=== PATIENT | female | born 1960 | race Caucasian/White ===

== ENCOUNTER 2020-05-24 08:52 | Inpatient (IN) | payer MEDICAID, SELFPAY ==
[~2020-05-24] VITALS: Ht 162.6 cm; Wt 61.2 kg
[2020-05-24 08:55] VITALS: BP 122/62
--- NOTE | 2020-05-24 09:15 | NUR ---
BIBA from home with c/o headache, abdominal pain N&V x 3 days. Denies fever, cough. States headache is 10/10 pain. NKDA, PMH DM2 A, A, O x4, cooperative, moving all exts w/o difficulty HOB elevated, connected to health promoter, VVS x HR 125 BPM Resp even and unlabored, in NAD Awaiting evaluation/examination by MD Will continue to monitor
--- NOTE | 2020-05-24 10:01 | NUR ---
Patient given water and encouraged to void for urine sample
--- NOTE | 2020-05-24 10:25 | NUR ---
Patient ambulated to washroom to void, gait steady. Will dip and sent UA
--- NOTE | 2020-05-24 10:30 | NUR ---
Urine dip results given to Dr. Rausch, urine sample [facility]
[2020-05-24] MEDS ORDERED: KETOROLAC 30 MG/ML VIAL IVP ONE (10:45)
[2020-05-24] MEDS ORDERED: NACL 0.9% 1,000 ML IV ONE ×2 (10:45→12:00)
--- NOTE | 2020-05-24 11:34 | NUR ---
Patint swabbed for influenza A&B and COVID-19 send out, patient tolerated well. Swabs taken to the lab
--- NOTE | 2020-05-24 12:27 | NUR ---
Spoke with daughter in law Christiane Back [phone] Updated re: her care
[2020-05-24] MEDS ORDERED: MORPHINE SULFATE 4 MG/ML SYR IVP ONE (13:55)
[2020-05-24 14:13] LABS: BASOPHILS % (AUTO) 0.2 % (0.0-2.0); HEMATOCRIT 47.1 % (36-48); HEMOGLOBIN 15.2 g/dL (12.0-16.0); LYMPHOCYTES # (AUTO) 0.3 K/uL (2.5-16.5); LYMPHOCYTES % (AUTO) 1.8 % (20.5-51.1); MEAN CORPUSCULAR HEMOGLOBIN 32 pg (27-31); MEAN CORPUSCULAR HGB CONC 32 g/dL (33-37); MEAN CORPUSCULAR VOLUME 100.5 fL (80-94); MONOCYTES # (AUTO) 1.2 K/uL (0.8-1.0); MONOCYTES % (AUTO) 8.3 % (1.7-9.3); NEUTROPHILS # (AUTO) 12.9 K/uL (1.8-7.7); NEUTROPHILS % (AUTO) 89.7 % (42.2-75.2); PLATELET COUNT (AUTO) 214 K/uL (140-450); RED BLOOD CELL COUNT(AUTO) 4.69 MIL/uL (4.20-5.40); RED CELL DISTRIBUTION WIDTH 13.8 % (11.6-13.7); WHITE BLOOD COUNT (AUTO) 14.4 K/uL (4.8-10.8)
[2020-05-24] MEDS ORDERED: cefTRIAXone 1,000 MG in DEXT 5% MINI-BAG PLUS 50 ML IV ONE (14:40)
[2020-05-24 14:44] LABS: ALBUMIN 3.2 g/dL (3.4-5.0); CREATININE 1.2 mg/dL (0.6-1.3); POTASSIUM 3.5 mmol/L (3.5-5.1); TOTAL BILIRUBIN 0.6 mg/dL (0.0-1.0)
[2020-05-24] MEDS ORDERED: cefTRIAXone 1,000 MG VIAL ONE (14:54)
[2020-05-24 15:01] LABS: ANION GAP 35.8 (8-16); CARBON DIOXIDE 4.7 mmol/L (21-32)
--- NOTE | 2020-05-24 15:01 | NUR ---
Glucose 446, Bicarb 4.5--critical values received from lab. Dr Rausch made aware
[2020-05-24] MEDS ORDERED: INSULIN REGULAR, HUMAN 100 UNIT/ML VIAL IVP ONE (15:10)
--- NOTE | 2020-05-24 16:12 | NUR ---
2nd IV started RAC #18g for CT angio of the chest, patient transported to CT scan via gurney with Radiology attendant
[2020-05-24 16:30] LABS: APPEARANCE,URINE CLOUDY (CLEAR); BILIRUBIN,URINE 1+ (NEGATIVE); BLOOD, URINE 2+ (NEGATIVE); COLOR,URINE YELLOW (YELLOW); LEUKOCYTE ESTERASE ,URINE NEGATIVE (NEGATIVE); NITRITE, URINE NEGATIVE (NEGATIVE); PH,URINE 5.5 (5.0-9.0); UGLUCOSE 2+ (NEGATIVE)
[2020-05-24 16:38] LABS: WBC,URINE 0-5 /HPF (0-5)
[2020-05-24 16:40] LABS: YEAST,URINE Few /HPF (None Seen)
--- NOTE | 2020-05-24 17:31 | NUR ---
Fingerstick BS 498 mg/dl, Dr. Rausch notified. Wants to start Insulin drip. Orders will be obtained
[2020-05-24] MEDS ORDERED: INSULIN REGULAR, HUMAN 100 UNIT in NACL 0.9% 100 ML IV SCH ×2 (17:45)
--- NOTE | 2020-05-24 18:14 | NUR ---
SPOKE TO DAUGHTER VANNESSA SEVILLA, GAVE HER AN UPDATE ON HER MOTHER.
[2020-05-24] MEDS ORDERED: BLOOD GLUCOSE MONITORING 1 DEV DEV FS SCH (18:25)
[2020-05-24] MEDS ORDERED: NACL 0.9% 1,000 ML IV SCH (18:30)
[2020-05-24] MEDS ORDERED: HYDROcodone/APAP 5/325 MG 1 TAB TAB PO PRN ×2 (18:35)
[2020-05-24] MEDS ORDERED: MORPHINE SULFATE 2 MG/ML SYR IVP PRN (18:35)
[2020-05-24] MEDS ORDERED: ACETAMINOPHEN 325 MG TAB PO PRN (18:35)
[2020-05-24] MEDS ORDERED: LORazepam 2 MG/ML VIAL IM/IVP PRN (18:35)
[2020-05-24] MEDS ORDERED: DOCUSATE SODIUM 100 MG GELCAP PO PRN (18:35)
[2020-05-24] MEDS ORDERED: ZOLPIDEM 5 MG TAB PO PRN (18:35)
[2020-05-24] MEDS ORDERED: DEXTROSE 50% 50 ML SYR IVP PRN (18:35)
[2020-05-24] MEDS ORDERED: ALBUTEROL HFA MDI 90 MCG/ACTUATION 8 GM INH PRN (18:35)
[2020-05-24] MEDS ORDERED: ONDANSETRON 4 MG/2 ML VIAL IM/IVP PRN (18:35)
[2020-05-24] MEDS ORDERED: AZITHROMYCIN 250 MG TAB PO SCH (18:55)
[2020-05-24] MEDS: BLOOD GLUCOSE MONITORING 1 DEV DEV FS SCH ×5 (19:27→23:30)
[2020-05-24] MEDS: INSULIN REGULAR, HUMAN 100 UNIT in NACL 0.9% 100 ML IV SCH ×2 (19:28)
--- NOTE | 2020-05-24 19:30 | NUR ---
Detailed report given to ROBER Lewis for transfer of care Questions answered, orders and meds reviewed
--- NOTE | 2020-05-24 19:30 | NUR ---
REPORT RECIEVED FROM AGENCY RN. TRANSFER OF CARE AT THIS TIME.
[2020-05-24 19:38] LABS: CHOL/HDL RATIO 2.6 (1-4.5); THYROID STIMULATING HORMONE 1.19 uIU/mL (0.34-3.74)
[2020-05-24] MEDS: NACL 0.9% 1,000 ML IV SCH (19:41)
[2020-05-24] MEDS: ENOXAPARIN 60 MG/0.6 ML SYR SUBQ SCH (19:46)
--- NOTE | 2020-05-24 20:00 | NUR ---
DR. CATHERINE AT BEDSIDE EVALUTING PT.
[2020-05-24 20:49] LABS: CREATININE 1.7 mg/dL (0.6-1.3); POTASSIUM 3.5 mmol/L (3.5-5.1)
[2020-05-24] MEDS ORDERED: LOVENOX 1MG/KG Q12H SUBQ SCH (21:00)
--- NOTE | 2020-05-24 21:00 | NUR ---
PT LETHARGIC AND EYES ROLLING BACK, SLURRED SPEECH, PT PULLED OUT R AC 18G DUE TO CONFUSION. ATTEMPTING TO GET OUT OF BED. PT PLACED BACK IN BED ON LOGGER/PULSE OX. INSULIN DRIP RESUMED IN L FOREARM IV. Q1HR ACCU CHECKS ADMIN, SEE EMAR.
[2020-05-24 21:21] LABS: CARBON DIOXIDE 4.6 mmol/L (21-32)
[2020-05-24 21:22] LABS: ANION GAP 33.9 (8-16)
[2020-05-24] MEDS: ZINC SULF 220 MG CAP PO SCH (22:00)
--- NOTE | 2020-05-24 22:10 | NUR ---
PT PLACED ON 3L NC FOR O2 DESAT TO 92%.
--- NOTE | 2020-05-24 22:30 | NUR ---
SPOKE TO PTS DAUGHTER VANNESSA SEVILLA TO UPDATE ON PLAN OF CARE. [phone]
--- NOTE | 2020-05-24 23:40 | NUR ---
RT AT BEDSIDE TO ASSESS NEED FOR PRN INH TREATMENT DUE TO AUDIBLE WHEEZING AND PRODUCTIVE COUGH. WILL COME TO BEDSIDE LATER DUE TO PTS N/V.
--- NOTE | 2020-05-24 23:45 | NUR ---
PT HAD AN EPISODE OF VOMITING. PT CHANGED INTO CLEAN GOWN. PRN ZOFRAN ADMINISTERED. OLIVE BRINE TESTER AND PULSE OX IN PLACE. BED LOCKED AND IN LOWEST POSITION.
[2020-05-25] VITALS (10 sets, daily range): BP systolic 116–138; BP diastolic 59–82
--- NOTE | 2020-05-25 00:30 | NUR ---
LAB AT BEDSIDE
[2020-05-25 00:37] LABS: BARBITURATE, URINE NEGATIVE ng/ml (NEG <=200); BENZODIAZEPINE, URINE NEGATIVE ng/mL (NEG <=200); CANNABINOID, URINE NEGATIVE ng/mL (NEG <=50); COCAINE, URINE NEGATIVE ng/mL (NEG <=300); OPIATE, URINE NEGATIVE ng/mL (NEG <=2000); PHENCYCLIDINE SCREEN,URINE NEGATIVE ng/mL (NEG <=25)
[2020-05-25] MEDS: BLOOD GLUCOSE MONITORING 1 DEV DEV FS SCH ×22 (00:38→23:35)
[2020-05-25] MEDS: NACL 0.9% 1,000 ML IV SCH ×2 (00:39→05:07)
--- NOTE | 2020-05-25 00:50 | NUR ---
PT HAD A SECOND EPISODE OF VOMITING. PT CLEANED AND POSITIONED FOR COMFORT. EQUAL CHEST RISE AND FALL. DIRECTOR OF AUDIOLOGY/PULSE OX IN PLACE. BED LOCKED AND IN LOWEST POSITION. SIDE RAILS X2.
[2020-05-25 00:55] LABS: ANION GAP 30.6 (8-16); CREATININE 1.8 mg/dL (0.6-1.3); POTASSIUM 3.1 mmol/L (3.5-5.1)
[2020-05-25 01:08] LABS: CARBON DIOXIDE 6.5 mmol/L (21-32)
--- NOTE | 2020-05-25 01:15 | NUR ---
CALLED DR CATHERINE TO GET IV ORDER FOR K DUE TO HYPOKALEMIA (3.1) AND PT BEING UNABLE TO TOLERATE PO DUE TO N/V. 40 MEQ K RIDER VERBAL ORDER GIVEN.
[2020-05-25] MEDS ORDERED: KCL 20 MEQ/WATER INJ PREMIX 200 ML IV SCH (01:20)
[2020-05-25] MEDS ORDERED: POTASSIUM CHLORIDE 20% 40 MEQ/15 ML UDC ONE (01:21)
--- NOTE | 2020-05-25 01:56 | NUR ---
REPORT GIVEN TO ROBER LIRIANO IN ICU. Addendum: 05/25/20 at 0235 by [email or web address] REPORT GIVEN TO ROBER LIRIANO IN ICU. DEANDRA MADE AWARE THAT PTS GLUCOSE JUST REACHED 190 AND WILL NEED TO TITARTE INSULIN DRIP AFTER TRANSFER AND BEGIN D5/0.45% NS PER INSULIN DRIP PROTOCOL. ALSO ENDORSED REST OF K RIDER INFUSION TO HER. SECOND POTASSIUM BAG BROUGHT TO ICU WITH PT.
--- NOTE | 2020-05-25 02:15 | NUR ---
RECEIVED REPORT FROM ED RN ROSIE. PT ARRIVED VIA GURNEY. DRY WEIGHT 54.4 KG. A&O X2 DISORIENTED AND LETHARGIC. ST, S1S2 NOTED. RT AC 20G PERIPHERAL IV: PATENT, NO INFILTRATION/FLEBITIS NOTED, RUNNING: POTASSIUM CHLORIDE 20 MeQ @ 50 ML/HR AND INSULIN (HUMILIN R) @ 0.1 UNIT/KG/HR (5.44ML/HR). LT FA 20G PERIPHERAL IV: NO INFILTRATION/FLEBITIS NOTED, RUNNING NS @ 100ML/HR. LUNG SOUNDS: WHEEZING IN UPPER LOBES BILATERALLY. BOWEL SOUNDS ACTIVE IN ALL 4 QUADRANTS. SKIN INTACT. SAFETY MEASURES IN PLACE, BED LOW AND LOCKED. SIDE RAILS UP. CALL LIGHT WITHIN REACH. WILL CONTINUE TO MONITOR.
--- NOTE | 2020-05-25 02:22 | NUR ---
Patient will be admitted to care of MANDY. Admited to ICU. Will go to room 8. Belongings list completed. Report to ROBER LIRIANO.
--- NOTE | 2020-05-25 03:30 | NUR ---
PT IS RESTING IN BED. NO COMPLAINTS OF PAIN AT THIS TIME.
--- NOTE | 2020-05-25 04:00 | NUR ---
PATIENT'S DAUGHTER CALLED. UPDATED ON PATIENT'S CONDITION. ANSWERED QUESTIONS.
[2020-05-25 04:42] LABS: CREATININE 1.9 mg/dL (0.6-1.3)
[2020-05-25] MEDS: ONDANSETRON 4 MG/2 ML VIAL IVP PRN ×3 (05:20→19:41)
[2020-05-25] MEDS: DEXT 5% / NACL 0.45% 1,000 ML IV SCH ×3 (05:43→20:15)
[2020-05-25 05:50] LABS: MEAN CORPUSCULAR HEMOGLOBIN 33 pg (27-31); MEAN CORPUSCULAR HGB CONC 33 g/dL (33-37); MEAN CORPUSCULAR VOLUME 98.1 fL (80-94); PLATELET COUNT (AUTO) 161 K/uL (140-450); RED BLOOD CELL COUNT(AUTO) 4.89 MIL/uL (4.20-5.40); RED CELL DISTRIBUTION WIDTH 13.7 % (11.6-13.7); WHITE BLOOD COUNT (AUTO) 5.7 K/uL (4.8-10.8)
[2020-05-25 06:04] LABS: LYMPHOCYTES % (MANUAL) 2 % (20-46); METAMYELOCYTES % 4 % (0-0); MONOCYTES % (MANUAL) 9 % (5-12)
--- NOTE | 2020-05-25 07:15 | NUR ---
ENDORSED PT TO DAY SHIFT RN FOR CONTINUITY OF CARE.
[2020-05-25] MEDS: AZITHROMYCIN 250 MG TAB PO SCH (08:57)
[2020-05-25] MEDS: ASCORBIC ACID 500 MG TAB PO SCH (08:57)
[2020-05-25] MEDS: ZINC SULF 220 MG CAP PO SCH ×2 (08:57→21:27)
[2020-05-25] MEDS: ENOXAPARIN 60 MG/0.6 ML SYR SUBQ SCH (09:00)
[2020-05-25] MEDS: VITAMIN D 400 IU TAB PO SCH (09:14)
[2020-05-25 10:06] LABS: ANION GAP 22.4 (8-16); CARBON DIOXIDE 12.8 mmol/L (21-32); CREATININE 1.9 mg/dL (0.6-1.3); POTASSIUM 3.2 mmol/L (3.5-5.1)
[2020-05-25] MEDS ORDERED: METOCLOPRAMIDE 10 MG/2 ML INJ VIAL IVP PRN (10:30)
[2020-05-25 12:38] LABS: ANION GAP 21.6 (8-16); CARBON DIOXIDE 13.5 mmol/L (21-32); CREATININE 1.9 mg/dL (0.6-1.3); POTASSIUM 3.1 mmol/L (3.5-5.1)
[2020-05-25] MEDS: INSULIN REGULAR, HUMAN 100 UNIT in NACL 0.9% 100 ML IV SCH ×2 (15:35)
[2020-05-25] MEDS ORDERED: POTASSIUM PHOSPHATE 15 MM in NACL 0.9% 250 ML IV SCH (16:00)
[2020-05-25 16:36] LABS: ANION GAP 21.7 (8-16); CARBON DIOXIDE 14.1 mmol/L (21-32); CREATININE 1.8 mg/dL (0.6-1.3)
[2020-05-25 16:49] LABS: POTASSIUM 2.8 mmol/L (3.5-5.1)
[2020-05-25 16:51] LABS: AMYLASE 196 U/L (25-115); LIPASE 86 U/L (73-393)
[2020-05-25] MEDS ORDERED: POTASSIUM PHOSPHATE 15 MM in NACL 0.9% 250 ML IV ONE (17:00)
--- NOTE | 2020-05-25 19:45 | NUR ---
PT AOX4, DROWSY @ TIMES. ABLE TO MOVE ALL EXTREMITIES, SR ON MONITOR, +2 PULSES RADIAL/PEDAL. NC 3L, CLEAR BREATH SOUNDS. ABD SOFT NON DISTENDED, DENIES NAUSEA/VOMITING ACTIVE BOWEL SOUNDS, NPO @ THIS TIME. BRODY CATH IN PLACE, YELLOW URINE NOTED. SKIN INTACT, IV TO L WRIST 20G, LFA 20G. IVF INFUSING, INSULIN DRIP RUNNING @ 0.05 UNITS/KG/HR. BED LOCKED IN LOWEST POSITION, HOB>30 DEGREES. DENIES PAIN @ THIS TIME. CALL LIGHT WITHIN REACH. WILL CONTINUE TO OBSERVE.
[2020-05-25 20:09] LABS: PLATELET COUNT (AUTO) 164 K/uL (140-450)
[2020-05-25 20:13] LABS: HEMATOCRIT 48.7 % (36-48); HEMOGLOBIN 16.4 g/dL (12.0-16.0); MEAN CORPUSCULAR HEMOGLOBIN 33 pg (27-31); MEAN CORPUSCULAR HGB CONC 34 g/dL (33-37); MEAN CORPUSCULAR VOLUME 96.4 fL (80-94); RED BLOOD CELL COUNT(AUTO) 5.05 MIL/uL (4.20-5.40); RED CELL DISTRIBUTION WIDTH 13.8 % (11.6-13.7); WHITE BLOOD COUNT (AUTO) 8.9 K/uL (4.8-10.8)
[2020-05-25 20:20] LABS: ANION GAP 20.4 (8-16); CARBON DIOXIDE 16.6 mmol/L (21-32); CREATININE 1.8 mg/dL (0.6-1.3)
[2020-05-25 21:01] LABS: BASOPHILS % (MANUAL) 1 % (0-2); EOSINOPHILS % (MANUAL) 0 % (0-4); LYMPHOCYTES % (MANUAL) 5 % (20-46); MONOCYTES % (MANUAL) 5 % (5-12)
--- NOTE | 2020-05-25 21:35 | NUR ---
PT SUPINE IN BED, EYES CLOSED, AROUSABLE, DENIES PAIN @ THIS TIME. BS 120. WILL CONTINUE TO OBSERVE
[2020-05-25] MEDS: POTASSIUM CHLORIDE 10 MEQ TABER PO PRN (22:31)
--- NOTE | 2020-05-25 23:33 | NUR ---
PT DENIES N/V/D. NO S/S OF ACUTE PAIN NOTED. WILL CONTINUE TO OBSERVE.
[2020-05-26] VITALS (14 sets, daily range): BP systolic 111–157; BP diastolic 56–109
[2020-05-26 01:00] LABS: CARBON DIOXIDE 14.7 mmol/L (21-32); CREATININE 1.7 mg/dL (0.6-1.3)
[2020-05-26 01:09] LABS: POTASSIUM 2.7 mmol/L (3.5-5.1)
[2020-05-26] MEDS: BLOOD GLUCOSE MONITORING 1 DEV DEV FS SCH ×24 (01:28→23:44)
[2020-05-26] MEDS: DEXT 5% / NACL 0.45% 1,000 ML IV SCH ×3 (01:29→22:30)
[2020-05-26] MEDS: POTASSIUM CHLORIDE 10 MEQ TABER PO PRN ×3 (01:29→23:50)
--- NOTE | 2020-05-26 01:30 | NUR ---
PT HAS EYES CLOSED; AROUSABLE, DENIES PAIN @ THIS TIME. NO ACUTE DISTRESS NOTED. WILL CONTINUE TO OBSERVE
[2020-05-26 04:42] LABS: HEMATOCRIT 46.1 % (36-48); HEMOGLOBIN 15.7 g/dL (12.0-16.0); MEAN CORPUSCULAR HEMOGLOBIN 33 pg (27-31); MEAN CORPUSCULAR HGB CONC 34 g/dL (33-37); MEAN CORPUSCULAR VOLUME 95.4 fL (80-94); PLATELET COUNT (AUTO) 169 K/uL (140-450); RED BLOOD CELL COUNT(AUTO) 4.84 MIL/uL (4.20-5.40); RED CELL DISTRIBUTION WIDTH 13.8 % (11.6-13.7); WHITE BLOOD COUNT (AUTO) 9.1 K/uL (4.8-10.8)
[2020-05-26 06:26] LABS: BASOPHILS % (MANUAL) 0 % (0-2); EOSINOPHILS % (MANUAL) 0 % (0-4); LYMPHOCYTES % (MANUAL) 2 % (20-46); MONOCYTES % (MANUAL) 5 % (5-12)
[2020-05-26 06:27] LABS: ANION GAP 20.4 (8-16); CARBON DIOXIDE 16.6 mmol/L (21-32); CREATININE 1.8 mg/dL (0.6-1.3)
[2020-05-26 06:45] LABS: MAGNESIUM 1.7 mg/dL (1.8-2.4); PHOSPHORUS 1.7 mg/dL (2.5-4.9)
--- NOTE | 2020-05-26 06:45 | NUR ---
BS 185, PT DENIES PAIN @ THIS TIME. NO S/S OF ACUTE DISTRESS NOTED. WILL CONTINUE TO OBSERVE.
--- NOTE | 2020-05-26 07:08 | NUR ---
REPORT GIVEN TO DAY SHIFT FOR CONTINUITY OF CARE.
--- NOTE | 2020-05-26 07:10 | NUR ---
PATIENT HAS BEEN SCREENED AND CATEGORIZED HIGH NUTRITION RISK. PATIENT WILL BE SEEN WITHIN 1-2 DAYS OF ADMISSION. 05/25/20-05/26/20 SYBIL ESCALANTE MS, RDN
[2020-05-26 08:50] LABS: ANION GAP 21.7 (8-16); CARBON DIOXIDE 12.7 mmol/L (21-32); CREATININE 1.5 mg/dL (0.6-1.3); POTASSIUM 4.4 mmol/L (3.5-5.1)
[2020-05-26] MEDS: ZINC SULF 220 MG CAP PO SCH ×2 (09:06→21:30)
[2020-05-26] MEDS: ASCORBIC ACID 500 MG TAB PO SCH (09:07)
[2020-05-26] MEDS: AZITHROMYCIN 250 MG TAB PO SCH (09:10)
[2020-05-26] MEDS: ENOXAPARIN 40 MG/0.4 ML SYR SUBQ SCH (09:12)
[2020-05-26] MEDS: VITAMIN D 400 IU TAB PO SCH (09:26)
[2020-05-26 10:06] LABS: T3 UPTAKE 31 % (24-39)
[2020-05-26] MEDS ORDERED: NACL 0.9% 1,000 ML IV SCH ×2 (10:45→10:50)
--- NOTE | 2020-05-26 10:49 | NUR ---
(05/26/20) RD INITIAL ASSESSMENT COMPLETED PLEASE REFER TO NUTRITION ASSESSMENT UNDER CARE ACTIVITY FOR ESTIMATED NUTRITIONAL NEEDS. RD RECOMMENDATIONS: 1. CONTINUE NPO MEDICALLY APPROPRIATE. 2. IF/WHEN MEDICALLY APPROPRIATE, RECOMMEND INITIATING CCHO 60 GM DIET. 3. CONSULT RDN PRN. 4. RD WILL F/U 2-3 DAYS; HIGH RISK. 5. RDN PROVIDED DIABETES DIET EDUCATION TO PATIENT; PT AND FAMILY ACCEPTED DIABETES DIET EDUCATION. SYBIL ESCALANTE, , RDN
--- NOTE | 2020-05-26 10:55 | NUR ---
DR. GALVAN PAGEMan IN REGARDS TO PT CRITICAL LAB VALUE PHOSPHATE 1.1, AWAITING RESPONSE
[2020-05-26] MEDS ORDERED: NACL 0.9% 1,000 ML IV PRN (11:00)
--- NOTE | 2020-05-26 11:30 | NUR ---
DR. GALVAN PAGED A SECOND TIME IN REGARDS TO PT CRITICAL LAB VALUE PHOSPHATE 1.1, STILL AWAITING RESPONSE
--- NOTE | 2020-05-26 12:30 | NUR ---
DR. GALVAN CALLED BACK, SPOKE TO CLARENCE FLANAGAN RN.
[2020-05-26] MEDS: SODIUM PHOS / POTASSIUM PHOS 1 PKT PDR PO SCH ×2 (12:39→17:02)
[2020-05-26 13:24] LABS: ANION GAP 22.5 (8-16); CREATININE 1.5 mg/dL (0.6-1.3); POTASSIUM 3.5 mmol/L (3.5-5.1)
[2020-05-26] MEDS: INSULIN REGULAR, HUMAN 100 UNIT in NACL 0.9% 100 ML IV SCH ×2 (16:10)
[2020-05-26] MEDS ORDERED: remdesivir COMMUNICATION ORDER 1 EA MISC MC PRN (17:45)
[2020-05-26 18:31] LABS: ANION GAP 17.7 (8-16); CARBON DIOXIDE 14.6 mmol/L (21-32); CREATININE 1.3 mg/dL (0.6-1.3); POTASSIUM 3.3 mmol/L (3.5-5.1)
[2020-05-26 23:00] LABS: MAGNESIUM 1.7 mg/dL (1.8-2.4); PHOSPHORUS 1.2 mg/dL (2.5-4.9)
[2020-05-26 23:15] LABS: ANION GAP 16.1 (8-16); CARBON DIOXIDE 17.7 mmol/L (21-32); CREATININE 1.2 mg/dL (0.6-1.3)
[2020-05-26 23:27] LABS: POTASSIUM 2.8 mmol/L (3.5-5.1)
[2020-05-27] VITALS (15 sets, daily range): BP systolic 118–144; BP diastolic 62–91
[2020-05-27] MEDS: BLOOD GLUCOSE MONITORING 1 DEV DEV FS SCH ×24 (00:59→23:35)
[2020-05-27 02:48] LABS: ANION GAP 18.3 (8-16); CARBON DIOXIDE 16.4 mmol/L (21-32); CREATININE 1.2 mg/dL (0.6-1.3)
--- NOTE | 2020-05-27 03:00 | NUR ---
Garrett PATEL ORDERED TOTAL OF 40 MEQ IV AND 40 MEQ ORAL FOR POTASSIUM 0F 2.7 PATIENT INCONTINENT OF LARGE BOWEL MOVEMENT PASTY AND ITS FORMED.PATIENT IS ALSO DIGGING ON HER STOOL
[2020-05-27 03:10] LABS: POTASSIUM 2.7 mmol/L (3.5-5.1)
--- NOTE | 2020-05-27 04:00 | NUR ---
VITAL SIGNS REMAIN STABLE ANOTHER INCONTINENT OF FORMED STOOL DARK BROWN IN COLOR.
[2020-05-27] MEDS ORDERED: KCL 20 MEQ/WATER INJ PREMIX 200 ML IV SCH (04:20)
[2020-05-27] MEDS ORDERED: POTASSIUM CHLORIDE 10 MEQ TABER PO SCH (04:20)
[2020-05-27] MEDS ORDERED: KCL 20 MEQ/WATER INJ PREMIX 200 ML IV ONE (04:27)
[2020-05-27] MEDS: POTASSIUM CHLORIDE 10 MEQ TABER PO PRN ×2 (04:42→11:43)
--- NOTE | 2020-05-27 06:00 | NUR ---
PATIENT CONTINUE ON DKA PROTOCOL ACCUCHECK EVERY HOUR PATIENT REMAIN ON 0.05 UNITS/HER.PATIENT IS ALREADY COMPLAINING OF BEING HUNGRY.SHE TOLERATED ORAL LIQUID NO NAUSEA NO VOMITING.
--- NOTE | 2020-05-27 07:20 | NUR ---
RECEIVED WINDOW-SIDE REPORT FROM RETOUCHER PHOTOENGRAVING NURSE GRACIELA FOR CONTINUITY OF CARE. PATIENT IS AWAKE AND RESTING ON BED AT THIS TIME. PATIENT SPEAKS LITHUANIAN AND UNDERSTAND SOME AZERI, ABLE TO MAKE NEEDS KNOWN AND FOLLOW SIMPLE COMMAND. RESPIRATION EVEN AND UNLABORED ON ROOM AIR, SPO2 AT 93% AT THIS TIME. DENIED PAIN, SOB AND DIZZINESS, BUT STATED, " I AM HUNGRY." EXPLAINED TO PATIENT THAT SHE IS ON NOTHING BY MOUTH DUE TO HER SUGAR CONTROL, EDUCATED PATIENT ON HER DIAGNOSIS AND DIET. NO SIGNS OF ACUTE DISTRESS NOTED. IV ON RAC 18G, SALINE LOCK, AND LFA 20G AND 18G, RUNNING INSULIN DRIP AT 0.05 UNIT/KG/HR AND D5NS0.45 AT 200 ML/HR. SKIN WARM AND DRY. PATIENT HAS BRODY IN PLACE, DRAINING YELLOW URINE WITH GRAVITY. ENHANCED DROPLET PRECAUTION AND FALL RISK PROTOCOL IN PLACE. SAFETY MEASURES IN PLACE. BED IN LOW POSITION, CALL LIGHT WITHIN REACH. INSTRUCTED PATIENT TO USE THE CALL LIGHT FOR ANY ASSISTANCE AND PATIENT WAS AWARE.
[2020-05-27 08:22] LABS: ANION GAP 22.3 (8-16); CARBON DIOXIDE 16.6 mmol/L (21-32); CREATININE 1.1 mg/dL (0.6-1.3); POTASSIUM 3.9 mmol/L (3.5-5.1)
[2020-05-27 08:40] LABS: BASOPHILS % (AUTO) 0.5 % (0.0-2.0); EOSINOPHILS % (AUTO) 0.3 % (0.0-4.0); HEMATOCRIT 43.5 % (36-48); HEMOGLOBIN 14.8 g/dL (12.0-16.0); LYMPHOCYTES # (AUTO) 0.3 K/uL (2.5-16.5); LYMPHOCYTES % (AUTO) 3.9 % (20.5-51.1); MEAN CORPUSCULAR HEMOGLOBIN 32 pg (27-31); MEAN CORPUSCULAR HGB CONC 34 g/dL (33-37); MONOCYTES # (AUTO) 0.1 K/uL (0.8-1.0); MONOCYTES % (AUTO) 0.7 % (1.7-9.3); NEUTROPHILS # (AUTO) 8.2 K/uL (1.8-7.7); NEUTROPHILS % (AUTO) 94.6 % (42.2-75.2); PLATELET COUNT (AUTO) 162 K/uL (140-450); RED BLOOD CELL COUNT(AUTO) 4.58 MIL/uL (4.20-5.40); RED CELL DISTRIBUTION WIDTH 14.2 % (11.6-13.7); WHITE BLOOD COUNT (AUTO) 8.7 K/uL (4.8-10.8)
--- NOTE | 2020-05-27 08:50 | NUR ---
RECEIVED CRITICAL LAB FOR NA 156, BUN 22, PAGED DR GALVAN AND AWAITING FOR MD TO CALL BACK.
[2020-05-27] MEDS: ZINC SULF 220 MG CAP PO SCH ×2 (09:34→21:00)
[2020-05-27] MEDS: ASCORBIC ACID 500 MG TAB PO SCH (09:34)
[2020-05-27] MEDS: VITAMIN D 400 IU TAB PO SCH (09:34)
[2020-05-27] MEDS: AZITHROMYCIN 250 MG TAB PO SCH (09:34)
[2020-05-27] MEDS: SODIUM PHOS / POTASSIUM PHOS 1 PKT PDR PO SCH ×3 (09:35→17:25)
[2020-05-27] MEDS: DEXT 5% / NACL 0.45% 1,000 ML IV SCH ×2 (09:35→22:39)
[2020-05-27] MEDS: ENOXAPARIN 40 MG/0.4 ML SYR SUBQ SCH (09:36)
--- NOTE | 2020-05-27 09:40 | NUR ---
ADMINISTERED SCHEDULED MEDS PER MD ORDER, MEDS EDUCATION PROVIDED, PATIENT VERBALIZED UNDERSTANDING, PATIENT IS ABLE TO SWALLOW MEDS WELL WITH SIP OF WATER. PATIENT IS ABLE TO SELF REPOSITIONED. PATIENT IS RESTING ON BED AT THIS TIME. DENIED PAIN, SOB, AND ANY DISTRESS. SPO2 AT 95% ON ROOM AIR. ONLINE MERCHANDISING COORDINATOR IN PLACE. SAFETY MEASURES IN PLACE. BED IN LOW POSITION, CALL LIGHT WITHIN REACH.
--- NOTE | 2020-05-27 10:15 | NUR ---
DR CHURCH IS ROUNDING ON PATIENT. PER DR CHURCH, CHANGE IVF FROM D5NS0.45 TO D5W AT 200 ML/HR. REPEATED AND CONFIRMED ORDER WITH DR CHURCH AND WILL INPUT ACCORDINGLY.
[2020-05-27] MEDS: DEXTROSE 5% 1,000 ML IV SCH ×3 (10:59→22:40)
[2020-05-27 11:14] LABS: ANION GAP 17.1 (8-16); POTASSIUM 3.1 mmol/L (3.5-5.1)
[2020-05-27] MEDS: KCL 20 MEQ/WATER INJ PREMIX 200 ML IV PRN (11:43)
--- NOTE | 2020-05-27 11:43 | NUR ---
POTASSIUM 3.1, ADMINISTERED 40 MEQ K-DUR AND 20 MEQ POTASSIUM CHLORIDE VIA IV, MEDS EDUCATION PROVIDED TO PATIENT, PATIENT VERBALIZED OK, PATIENT TOLERATED PO MEDS WELL WITH SIP OF WATER. PATIENT IS RESTING ON BED AT THIS TIME. NO SIGNS OF ACUTE DISTRESS NOTED. SINKER PULLER IN PLACE. SAFETY MEASURES IN PLACE.
[2020-05-27 12:05] LABS: MAGNESIUM 1.4 mg/dL (1.8-2.4)
--- NOTE | 2020-05-27 12:53 | NUR ---
PATIENT HAS A LARGE BROWN SOLID BM, PROVIDED HYGIENE CARE, SPONGE BATH, AND CHANGED ALL DIRTY LINENS. INSTRUCTED PATIENT TO USE THE CALL LIGHT IF SHE NEEDS TO USE THE BED GONZALES, PATIENT VERBALIZED UNDERSTANDING. PATIENT IS RESTING ON BED AT THIS TIME, ON ROOM AIR SPO2 AT 95%. DENIED PAIN, NAUSEA, VOMITING, AND ANY DISTRESS. NO SIGNS OF ACUTE DISTRESS NOTED. PRINTING SUPERVISOR IN PLACE. SAFETY MEASURES IN PLACE. BED IN LOW POSITION AND CALL LIGHT WITHIN REACH.
[2020-05-27] MEDS: MAG SULF 2000 MG/WATER PREMIX 50 ML IV PRN (13:39)
--- NOTE | 2020-05-27 13:42 | NUR ---
SCHEDULED MEUTRA-PHOS GIVEN, MAG 1.4, COVERED WITH MAG SULFATE 2,000 MG VIA IVP, MEDS EDUCATION PROVIDED, PATIENT SAID OK. PATIENT IS RESTING ON BED AT THIS TIME. NO SIGNS OF ACUTE DISTRESS NOTED. CAR RENTAL DELIVERER IN PLACE. SAFETY MEASURES IN PLACE.
[2020-05-27 15:01] LABS: ANION GAP 16.2 (8-16); CARBON DIOXIDE 18.6 mmol/L (21-32); POTASSIUM 3.8 mmol/L (3.5-5.1)
--- NOTE | 2020-05-27 15:08 | NUR ---
ADMINISTERED SCHEDULED ROCEPHIN. CHANGED IVF TO 0.45NS AT 200 ML/HR DUE TO LAST BLOOD GLUCOSE CHECK IS 308 AND SODIUM IS 152 FROM LAST LAB DRAW. PATIENT IS NAPPING ON BED AND AROUSABLE TO VOICE. NO SIGNS OF ACUTE DISTRESS NOTED. ORGAN TUNER ELECTRONIC IN PLACE. SAFETY MEASURES IN PLACE.
[2020-05-27 15:14] LABS: PHOSPHORUS 1.2 mg/dL (2.5-4.9)
[2020-05-27] MEDS: NACL 0.45% 1,000 ML IV SCH ×2 (15:23→20:15)
--- NOTE | 2020-05-27 17:28 | NUR ---
BLOOD GLUCOSE CHECK RECEIVED 293, CONTINUE ON DKA PROTOCOL, IVF RUNNING 0.45 NS AT 200 ML/HR. ADMINISTERED SCHEDULED MED WITH WATER, PATIENT TOLERATED WELL. PATIENT IS AWAKE AND RESTING ON BED. DENIED PAIN, SOB AND DIZZINESS. NO SIGNS OF ACUTE DISTRESS NOTED. ELECTRO MECHANICAL SOLAR TECHNICIAN IN PLACE. SAFETY MEASURES IN PLACE. INSTRUCTED PATIENT TO USE THE CALL LIGHT FOR ANY ASSISTANCE AND PATIENT WAS AWARE.
--- NOTE | 2020-05-27 19:16 | NUR ---
ENDORSED PATIENT TO TECHNICAL SOLUTIONS CONSULTANT NURSES FOR CONTINUITY OF CARE. LELE WAS AWARE OF THE REMDESIVIR AND PLASMA, WILL ASK DR SALES WHEN HE COMES TO ROUND ON PATIENT. PATIENT IS ON STABLE CONDITION. PAD EXTRACTOR TENDER IN PLACE. SAFETY MEASURES IN PLACE.
[2020-05-27 19:34] LABS: ANION GAP 17.8 (8-16); CREATININE 0.9 mg/dL (0.6-1.3); POTASSIUM 3.8 mmol/L (3.5-5.1)
--- NOTE | 2020-05-27 20:00 | NUR ---
RECEIVED REPORT FROM DAY SHIFT RN. DRY WEIGHT 54.4 KG. A&O X 2-3 WITH INTERMITTENT CONFUSION. SR, S1S2 NOTED. RT FA 20G PERIPHERAL IV: PATENT, NO INFILTRATION/FLEBITIS NOTED, SALINE LOCK. LT FA 20G PERIPHERAL IV: NO INFILTRATION/FLEBITIS NOTED, RUNNIN.45% NS @ 100ML/HR. LT FA 20G PERIPHERAL IV: NO INFILTRATION/FLEBITIS NOTED, RUNNING: INSULIN (HUMILIN R) @ 0.05 UNIT/KG/HR (2.72ML/HR). LUNG SOUNDS: CLEAR. PT IS ON ROOM AIR. BOWEL SOUNDS ACTIVE IN ALL [address] BRODY [address] PL[address], DRAINING TO GRAVITY. SKIN INTACT. SAFETY MEASURES IN PLACE, BED LOW AND LOCKED. SIDE RAILS UP. CALL LIGHT WITHIN REACH. WILL CONTINUE TO MONITOR.
--- NOTE | 2020-05-27 20:45 | NUR ---
PT HAD A SMALL FORMED/BROWN BM. CLEANED PT, TURNED OFF LIGHT AND PATIENT IN COMFORTABLE POSITION. BED LOW AND LOCKED, INSTRUCTED PT TO USE THE CALL LIGHT WHEN NEEDED.
--- NOTE | 2020-05-27 22:00 | NUR ---
PT IS RESTING IN BED, WITH THE LIGHT OFF, PT STATES NO PAIN AT THIS TIME, WILL CONTINUE TO MONITOR. INSTRUCTED USE OF CALL LIGHT. SAFETY MEASURES IN PLACE. WILL CONTINUE TO MONITOR.
[2020-05-27 22:38] LABS: ANION GAP 17.9 (8-16); CARBON DIOXIDE 17.2 mmol/L (21-32); CREATININE 0.9 mg/dL (0.6-1.3); POTASSIUM 3.1 mmol/L (3.5-5.1)
[2020-05-27] MEDS: INSULIN REGULAR, HUMAN 100 UNIT in NACL 0.9% 100 ML IV SCH ×2 (23:57)
[2020-05-28] VITALS (12 sets, daily range): BP systolic 104–148; BP diastolic 62–83
--- NOTE | 2020-05-28 | NUR ---
PT RESTING IN BED. NO COMPLAINTS/CONCERNS MADE. PT ABLE TO POSITION HERSELF IN BED. WILL CONTINUE TO MONITOR.
[2020-05-28] MEDS: BLOOD GLUCOSE MONITORING 1 DEV DEV FS SCH ×24 (00:35→23:35)
[2020-05-28] MEDS: NACL 0.45% 1,000 ML IV SCH ×5 (01:15→21:15)
[2020-05-28] MEDS: DEXTROSE 5% 1,000 ML IV SCH ×2 (01:40→06:40)
[2020-05-28 02:49] LABS: ANION GAP 18.3 (8-16); CARBON DIOXIDE 18.7 mmol/L (21-32); CREATININE 0.9 mg/dL (0.6-1.3)
--- NOTE | 2020-05-28 03:00 | NUR ---
PT USED CALL LIGHT, PT HAD A SMALL BM. CLEANED PT, BATH CARE, NEW LINENS AND BLANKETS. PT TOLERATED WELL. PT REPOSITIONS HERSELF. BED LOW AND LOCKED, WILL CONTINUE TO MONITOR.
[2020-05-28] MEDS: KCL 20 MEQ/WATER INJ PREMIX 200 ML IV PRN ×2 (05:15→08:39)
--- NOTE | 2020-05-28 05:30 | NUR ---
PT IS RESTING IN BED, PT STATES NO PAIN AT THIS TIME, SINUS RHYTHM NOTED, SPO2 AROUND 95-95%. NO DISTRESS NOTED. WILL CONTINUE TO MONITOR. SAFETY MEASURES IN PLACE, BED LOW AND LOCKED WITH SIDE RAILS UP.
[2020-05-28 06:53] LABS: BASOPHILS % (AUTO) 0.1 % (0.0-2.0); HEMATOCRIT 38.7 % (36-48); HEMOGLOBIN 13.2 g/dL (12.0-16.0); LYMPHOCYTES # (AUTO) 0.3 K/uL (2.5-16.5); LYMPHOCYTES % (AUTO) 4.4 % (20.5-51.1); MEAN CORPUSCULAR HEMOGLOBIN 32 pg (27-31); MEAN CORPUSCULAR HGB CONC 34 g/dL (33-37); MEAN CORPUSCULAR VOLUME 93.8 fL (80-94); MONOCYTES # (AUTO) 0.5 K/uL (0.8-1.0); MONOCYTES % (AUTO) 6.4 % (1.7-9.3); NEUTROPHILS % (AUTO) 89.1 % (42.2-75.2); PLATELET COUNT (AUTO) 160 K/uL (140-450); RED BLOOD CELL COUNT(AUTO) 4.13 MIL/uL (4.20-5.40); RED CELL DISTRIBUTION WIDTH 14.1 % (11.6-13.7); WHITE BLOOD COUNT (AUTO) 7.8 K/uL (4.8-10.8)
[2020-05-28 07:01] LABS: ANION GAP 17.3 (8-16); CARBON DIOXIDE 19.7 mmol/L (21-32); CREATININE 0.8 mg/dL (0.6-1.3)
[2020-05-28 07:07] LABS: PHOSPHORUS 2.1 mg/dL (2.5-4.9)
--- NOTE | 2020-05-28 07:12 | NUR ---
RECEIVED WINDOW-SIDE REPORT FROM TOMOGRAPHY TECHNOLOGIST NURSE BOZENA FOR CONTINUITY OF CARE. PATIENT IS AWAKE AND RESTING ON BED AT THIS TIME. RESPIRATION EVEN AND UNLABORED ON ROOM AIR, SPO2 AT 93% AT THIS TIME. DENIED PAIN, SOB AND DIZZINESS. NO SIGNS OF ACUTE DISTRESS NOTED. IV ON RAC 18G, SALINE LOCK, AND LFA 20G AND 20G, RUNNING INSULIN DRIP AT 0.05 UNIT/KG/HR, POTASSIUM CHLORIDE AT 25 ML/HR AND D5W AT 200 ML/HR. SKIN WARM AND DRY. PATIENT HAS BRODY IN PLACE, DRAINING YELLOW URINE WITH GRAVITY. ENHANCED DROPLET PRECAUTION AND FALL RISK PROTOCOL IN PLACE. SAFETY MEASURES IN PLACE. BED IN LOW POSITION, CALL LIGHT WITHIN REACH. INSTRUCTED PATIENT TO USE THE CALL LIGHT FOR ANY ASSISTANCE AND PATIENT WAS AWARE.
[2020-05-28] MEDS: ENOXAPARIN 40 MG/0.4 ML SYR SUBQ SCH (08:04)
[2020-05-28] MEDS: SODIUM PHOS / POTASSIUM PHOS 1 PKT PDR PO SCH ×3 (08:04→17:10)
[2020-05-28] MEDS: ZINC SULF 220 MG CAP PO SCH ×2 (08:05→21:00)
[2020-05-28] MEDS: AZITHROMYCIN 250 MG TAB PO SCH (08:05)
[2020-05-28] MEDS: VITAMIN D 400 IU TAB PO SCH (08:05)
[2020-05-28] MEDS: ASCORBIC ACID 500 MG TAB PO SCH (08:05)
--- NOTE | 2020-05-28 08:30 | NUR ---
ADMINISTERED SCHEDULED AM MEDS PER MD ORDER, MEDS EDUCATION PROVIDED, REINFORCEMENT NEEDED, PATIENT TOLERATED MEDS WELL WITH SIP OF WATER. PATIENT HAS A MODERATE BROWN SOFT BM, PROVIDED HYGIENE CARE, BRODY CARE, AND CHANGED ALL DIRTY LINENS. PATIENT AWAKE AND RESTING ON BED AT THIS TIME. DENIED PAIN, SOB, AND ANY NAUSEA, VOMITING. NO SIGNS OF ACUTE DISTRESS NOTED. SAFETY MEASURES IN PLACE. BED IN LOW POSITION, CALL LIGHT WITHIN REACH, INSTRUCTED PATIENT TO USE THE CALL LIGHT FOR ANY ASSISTANCE AND PATIENT IS AWARE.
[2020-05-28] MEDS: POTASSIUM CHLORIDE 10 MEQ TABER PO PRN (08:40)
--- NOTE | 2020-05-28 08:40 | NUR ---
POTASSIUM 3 FROM AM LAB, ADMINISTERED 20 MEQ POTASSIUM CHLORIDE VIA IVPB, AND 40 MEQ K-DUR PO WITH SIP OF WATER, PATIENT TOLERATED WELL. PATIENT IS RESTING ON BED AT THIS TIME. NO SIGNS OF ACUTE DISTRESS NOTED. RETAIL BRAND AMBASSADOR IN PLACE. SAFETY MEASURES IN PLACE.
--- NOTE | 2020-05-28 10:14 | NUR ---
DR VICTORIA IS ROUNDING ON PATIENT.
[2020-05-28] MEDS ORDERED: CLINICAL MONITORING MC PRN (10:15)
--- NOTE | 2020-05-28 10:36 | NUR ---
DR CHURCH IS ROUNDING ON PATIENT. PER DR CHURCH, MAY DISCONTINUE D5W DUE TO SODIUM IS WITHIN NORMAL LIMIT. WILL INPUT ORDER ACCORDINGLY.
[2020-05-28] MEDS: DEXT 5% / NACL 0.45% 1,000 ML IV SCH (10:45)
--- NOTE | 2020-05-28 11:49 | NUR ---
BLOOD GLUCOSE CHECKED AND RECEIVED 303, CHANGED IVF TO NS0.45 AT200 ML/HR. PATIENT IS AWAKE AND WATCHING TV ON BED. DENIED PAIN, SOB, AND ANY DISTRESS. BARN BOSS IN PLACE. SAFETY MEASURES IN PLACE.
--- NOTE | 2020-05-28 12:14 | NUR ---
PATIENT IS EATING LUNCH AT THIS TIME. NO SIGNS OF ACUTE DISTRESS NOTED. YARD RIGGER IN PLACE.
[2020-05-28 12:32] LABS: ANION GAP 14.7 (8-16); CARBON DIOXIDE 21.1 mmol/L (21-32); CREATININE 0.8 mg/dL (0.6-1.3); POTASSIUM 3.8 mmol/L (3.5-5.1)
[2020-05-28] MEDS ORDERED: REMDESIVIR (EUA) 200 MG in NACL 0.9% 100 ML IV SCH (13:00)
--- NOTE | 2020-05-28 13:08 | NUR ---
ADMINISTERED SCHEDULED MEDS PHOS-NAK AND REMDESIVIR PER MD ORDER, PATIENT AWAKE AND RESTING ON BED. NO SIGNS OF ACUTE DISTRESS NOTED. DENIED PAIN, SOB AND ANY DIZZINESS. VENEER JOINTER OPERATOR IN PLACE. SAFETY MEASURES IN PLACE.
--- NOTE | 2020-05-28 13:29 | NUR ---
SOCIAL WORK NOTE: Patient's Orientation Unable To Assess Information Provided By VANNESSA SEVILLA - DAUGHTER Comments SW WAS UNABLE TO MEET PATIENT AT BEDSIDE TO COMPLETE ASSESSMENT. SW CONTACTED DAUGHTER TO COMPLETE ASSESSMENT. PATIENT'S DAUGHTER STATED THAT PATIENT LIVES AT [address] [facility] [place] [id number]. Cad Draftsman, Realtionship and Phone Number VANNESSA ALY [phone] [facility] Power of Strapper No Does Patient Have a POLST No Identifying Problems No Social Work Triggers Is A Social Work Consult Needed No Mandate Report Filed No Explanation Of Identifying Problems PATIENT IS 59-YEAR-OLD FEMALE ADMITTED FOR DIABETIC KETOACIDOSIS. PATIENT HAS PMHX OF DIABETES AND MEDICAL NONCOMPLIANCE. DAUGHTER REPORTED THAT PATIENT HAS NO HISTORY OF MENTAL HEALTH OR SUBSTANCE ABUSE. Admitted From Home Pre-Admission Level Of Functioning Status Independent/Ambulatory Prior Resources/Services Used In Last 12 Months No Prior Resources Used Prior DME No Prior DME Used Dialysis Comments N/A Living Situation Apartment Lives With Family Patient Had Caregiver No Home Support No Caregiver Issues Financial Issues No Known Financial Issue Referral To The Financial Counselor Needed No Factors/Needs No D/C Needs Identified Explanation And Or Other Factors Affecting/Possible DC Needs PATIENTS DAUGHTER STATED SHE WOULD PROVIDE TRANSPORTATION HOME. Pt/Rep Participated In Discharge Plan Yes Patient/Family Agress With Discharge Plan Yes Discharge Plan Comments TENTATIVE DISCHARGE PLAN IS FOR PATIENT TO RETURN HOME. Addendum: 06/07/20 at 1526 by Sathya XIAO JORGE CONTACTED VANNESSA SEVILLA [phone] TO FOLLOW UP WITH FAMILY AND PROVIDE AVAILABLE RESOURCES. VANNESSA REQUESTED JORGE DIRECT LINE. SW WILL REMAIN AVAILABLE IF ANY ISSUES ARISE. Addendum: 06/18/20 at 1247 by Sathya Lanza SS JORGE WAS CONTACTED BY VANNESSA SEVILLA REGARDING AVAILABLE RESOURCES. JORGE PROVIDED EDUCATION AND COUNSELING ON MENTAL HEALTH RESOURCES, BEREAVEMENT RESOURCES, AND COMMUNITY RESOURCES THROUGH [facility]. JORGE DRAFTED A VERIFICATION LETTER AND APPLICABLE RESOURCES AT [facility]. VANNESSA STATED THAT SHE WILL GREASE AND TALLOW PUMPER LETTER AND RESOURCES FROM [facility]. JORGE PROVIDED DIRECT LINE TO VANNESSA AND WILL REMAIN AVAILABLE IF FURTHER ISSUES ARISE.
--- NOTE | 2020-05-28 13:30 | NUR ---
PATIENT HAS ONE MODERATED SOFT BROWN BM, PROVIDED HYGIENE CARE, AND CHANGED DIRTY, PATIENT AWAKE AND RESTING ON BED AT THIS TIME. NO SIGNS OF ACUTE DISTRESS NOTED. STENCIL PRINTER IN PLACE.
--- NOTE | 2020-05-28 13:55 | NUR ---
USED s0cket M[employer] JOURNALIST SERVICE TO OBTAIN CONSENT FOR PLASMA TRANSFUSION, IMMERSION METAL CLEANER #[id number], HANDOUT IN SLOVENIAN PROVIDED TO PATIENT, OBTAINED VERBAL CONSENT WITH CHARGE NURSE CEFERINO, DUE TO PATIENT IS IN ISOLATION ROOM, UNABLE TO SIGN CONSENT PHYSICALLY, PATIENT WAS AWARE AND AGREED TO PLASMA TRANSFUSION, ANSWERED ALL QUESTIONS, PATIENT VERBALIZED UNDERSTANDING.
--- NOTE | 2020-05-28 14:41 | NUR ---
05/28/20 RD FOLLOW UP COMPLETED PLEASE REFER TO NUTRITION ASSESSMENT UNDER CARE ACTIVITY FOR ESTIMATED NUTRITIONAL NEEDS. 1. CONTINUE CLEAR LIQUIDS TOLERATED 2. IF/WHEN MEDICALLY APPROPRIATE, RECOMMEND INITIATING CCHO 45 GM DIET. 3. CONSULT RDN PRN. 4. RD WILL FOLLOW UP 2-3 DAYS; HIGH RISK SEBA[address]N ZUNIGA RD
[2020-05-28 15:03] LABS: T4 (THYROXINE) 3.4 ug/dL (4.5 - 12.0)
--- NOTE | 2020-05-28 15:42 | NUR ---
ADMINISTERED SCHEDULED ROCEPHIN, PATIENT IS TALKING ON THE PHONE WITH HER DAUGHTER, NO SIGNS OF ACUTE DISTRESS NOTED. CLIENT RELATIONSHIP CONSULTANT IN PLACE. SAFETY MEASURES IN PLACE.
[2020-05-28 16:06] LABS: ANION GAP 17.5 (8-16); CARBON DIOXIDE 20.5 mmol/L (21-32); CREATININE 0.8 mg/dL (0.6-1.3)
[2020-05-28] MEDS: metFORMIN 500 MG TAB PO SCH (17:10)
--- NOTE | 2020-05-28 17:10 | NUR ---
ADMINISTERED SCHEDULED MEDS PER MD ORDER, MEDS EDUCATION PROVIDED, REINFORCEMENT NEEDED, PATIENT TOLERATED PO MEDS WELL WITH WATER. PATIENT AWAKE AND WATCHING TV ON BED, DENIED PAIN, SOB AND ANY DIZZINESS. NO SIGNS OF ACUTE DISTRESS NOTED. EVIDENCE SPECIALIST IN PLACE. SAFETY MEASURES IN PLACE.
[2020-05-28] MEDS ORDERED: SODIUM BICARBONATE 650 MG TAB PO SCH (17:50)
[2020-05-28] MEDS ORDERED: INSULIN REGULAR, HUMAN 100 UNIT in NACL 0.9% 100 ML IV SCH ×2 (17:50)
--- NOTE | 2020-05-28 18:00 | NUR ---
ASLEEP RESTING WELL ON RIGHT SIDE
--- NOTE | 2020-05-28 18:20 | NUR ---
ADMINISTERED SODIUM BICARBONATE PO PER MD ORDER, PATIENT TOLERATED WELL. PATIENT IS EATING DINNER ON BED AT THIS TIME. NO SIGNS OF ACUTE DISTRESS NOTED. RF TEST ENGINEER IN PLACE. SAFETY MEASURES IN PLACE.
[2020-05-28 20:00] LABS: ANION GAP 17.9 (8-16); CARBON DIOXIDE 20.3 mmol/L (21-32); POTASSIUM 3.2 mmol/L (3.5-5.1)
--- NOTE | 2020-05-28 20:00 | NUR ---
RECEIVED REPORT FROM DAY SHIFT RN. DRY WEIGHT 54.4 KG. A&O X 4. SR, S1S2 NOTED. RT FA 20G PERIPHERAL IV: PATENT, NO INFILTRATION/FLEBITIS NOTED, SALINE LOCK. LT FA 20G PERIPHERAL IV: NO INFILTRATION/FLEBITIS NOTED, RUNNIN.45% NS @ 200ML/HR. LT FA 20G PERIPHERAL IV: NO INFILTRATION/FLEBITIS NOTED, RUNNING: INSULIN (HUMILIN R) @ 0.15 UNIT/KG/HR (8.16 ML/HR). LUNG SOUNDS: CLEAR. PT IS ON ROOM AIR. BOWEL SOUNDS ACTIVE IN ALL 4 QUADRANTS. CLEAR LIQUID DIET. DINNER TRAY AT BEDSIDE. PT IS TOLERATING DIET WELL. BRODY IN PLACE, DRAINING TO GRAVITY. SKIN INTACT. SAFETY MEASURES IN PLACE, BED LOW AND LOCKED. SIDE RAILS UP. EDUCATED ON THE USE OF THE CALL LIGHT. WILL CONTINUE TO MONITOR.
--- NOTE | 2020-05-28 20:30 | NUR ---
INFORMED CONSENT FOR COVID-19 CONVALESCENT PLASMA OBTAINED FROM PATIENT. PIN TICKET MACHINE OPERATOR NUMBER [id number] (COSMO).
--- NOTE | 2020-05-28 22:00 | NUR ---
NO DISTRESS NOTED. PT IS RESTING IN BED, PT STATES NO PAIN AT THIS TIME, SINUS RHYTHM NOTED, SPO2 AROUND 93%. . WILL CONTINUE TO MONITOR. SAFETY MEASURES IN PLACE, BED LOW AND LOCKED WITH SIDE RAILS UP.
[2020-05-28 23:45] LABS: ANION GAP 13.7 (8-16); CARBON DIOXIDE 23.2 mmol/L (21-32); CREATININE 0.7 mg/dL (0.6-1.3)
[2020-05-28 23:59] LABS: POTASSIUM 2.9 mmol/L (3.5-5.1)
[2020-05-29] VITALS (19 sets, daily range): BP systolic 119–153; BP diastolic 47–98
[2020-05-29] MEDS: KCL 20 MEQ/WATER INJ PREMIX 200 ML IV PRN ×3 (00:08→05:52)
--- NOTE | 2020-05-29 00:30 | NUR ---
PT'S SPO2: 86%, PUT PATIENT ON NASAL CANNULA @ 3 LPM, WILL CONTINUE TO MONITOR.
[2020-05-29] MEDS: BLOOD GLUCOSE MONITORING 1 DEV DEV FS SCH ×11 (00:35→21:55)
--- NOTE | 2020-05-29 00:45 | NUR ---
PATIENTS SPO2: 94%, PATIENT IS LYING ON LEFT SIDE. WILL CONTINUE TO MONITOR.
[2020-05-29] MEDS: SODIUM BICARBONATE 650 MG TAB PO SCH ×3 (01:00→17:04)
--- NOTE | 2020-05-29 01:45 | NUR ---
PATIENT IS SATURATION IS TRENDING AROUND 89%, ASSISTED PT WITH REPOSITIONING TO PRONE POSITION, WILL CONTINUE TO MONITOR.
[2020-05-29] MEDS: DEXT 5% / NACL 0.45% 1,000 ML IV SCH (01:51)
--- NOTE | 2020-05-29 01:54 | NUR ---
PATIENT'S OXYGEN SATURATION IS TRENDING AROUND 91-92%. SAFETY MEASURES IN PLACE, WILL CONTINUE TO MONITOR.
[2020-05-29] MEDS: NACL 0.45% 1,000 ML IV SCH ×2 (02:15→08:11)
[2020-05-29 03:51] LABS: ANION GAP 13.8 (8-16); CARBON DIOXIDE 24.4 mmol/L (21-32); CREATININE 0.8 mg/dL (0.6-1.3); POTASSIUM 3.2 mmol/L (3.5-5.1)
--- NOTE | 2020-05-29 05:41 | NUR ---
PT DESATURATING 80s ON NASAL CANNULA 5L. PLACED PT ON OXYMIZER AND TITRATED TO 10L AND ASKED PT TO PRONE. PT IS IN PRONE WITH SPO2 90. PT DOES NOT APPEARS TO BE IN RESPIRATORY DISTRESS. NO WHEEZING ON AUSCULTATION. ROBER LOZANO AT BED. WILL CONTINUE TO MONITOR PATIENT.
[2020-05-29 07:44] LABS: HEMATOCRIT 38.1 % (36-48); HEMOGLOBIN 13.1 g/dL (12.0-16.0); MEAN CORPUSCULAR HEMOGLOBIN 32 pg (27-31); MEAN CORPUSCULAR HGB CONC 35 g/dL (33-37); MEAN CORPUSCULAR VOLUME 93.9 fL (80-94); PLATELET COUNT (AUTO) 160 K/uL (140-450); RED BLOOD CELL COUNT(AUTO) 4.06 MIL/uL (4.20-5.40); RED CELL DISTRIBUTION WIDTH 13.9 % (11.6-13.7); WHITE BLOOD COUNT (AUTO) 8.4 K/uL (4.8-10.8)
[2020-05-29 08:03] LABS: ALBUMIN 1.9 g/dL (3.4-5.0); ANION GAP 13.1 (8-16); CREATININE 0.7 mg/dL (0.6-1.3); POTASSIUM 3.1 mmol/L (3.5-5.1); TOTAL BILIRUBIN 0.3 mg/dL (0.0-1.0)
[2020-05-29 08:04] LABS: MAGNESIUM 1.4 mg/dL (1.8-2.4); PHOSPHORUS 2.9 mg/dL (2.5-4.9)
--- NOTE | 2020-05-29 08:05 | NUR ---
Patient is Oxymizer 10 liters and saturating at 88%. Patient is on bedrest and VS are within normal limit except the oxygen saturation. Pt skin is intact, she is able to carry on the daily activity of life by a minimal support. she still on insulin drip @ 0.05 unit /h and NS .9% @ 200 ML /H . She is on liquid diet according the night nurse report but MD hold i9t. Pt is on NPO except the Meds. Labs results remain pending.
[2020-05-29] MEDS: metFORMIN 500 MG TAB PO SCH ×2 (08:10→17:04)
[2020-05-29 08:46] LABS: LYMPHOCYTES % (MANUAL) 8 % (20-46); MONOCYTES % (MANUAL) 3 % (5-12)
[2020-05-29] MEDS ORDERED: glipiZIDE 5 MG TAB PO SCH (08:55)
[2020-05-29] MEDS: NACL 0.9% 1,000 ML IV SCH ×2 (09:04→22:01)
[2020-05-29] MEDS: ASCORBIC ACID 500 MG TAB PO SCH (09:12)
[2020-05-29] MEDS: AZITHROMYCIN 250 MG TAB PO SCH (09:12)
[2020-05-29] MEDS: ZINC SULF 220 MG CAP PO SCH ×2 (09:13→21:55)
[2020-05-29] MEDS: SODIUM PHOS / POTASSIUM PHOS 1 PKT PDR PO SCH ×3 (09:14→16:51)
[2020-05-29] MEDS: ENOXAPARIN 40 MG/0.4 ML SYR SUBQ SCH (09:15)
[2020-05-29] MEDS: VITAMIN D 400 IU TAB PO SCH (09:17)
[2020-05-29] MEDS: INSULIN LANTUS 100 UNITS/ML 10 ML VIAL SUBQ SCH (09:23)
[2020-05-29] MEDS: SODIUM FERRIC GLUCONATE 125 MG in NACL 0.9% 100 ML IV SCH (11:24)
[2020-05-29] MEDS: INSULIN LISPRO SLIDING SCALE 100 UNITS/ML VIAL SUBQ PRN ×3 (11:53→22:13)
[2020-05-29] MEDS: REMDESIVIR (EUA) 100 MG in NACL 0.9% 100 ML IV SCH (13:13)
[2020-05-29] MEDS: glipiZIDE 5 MG TAB PO SCH (16:51)
[2020-05-29] MEDS ORDERED: metFORMIN 500 MG TAB PO SCH (17:00)
--- NOTE | 2020-05-29 19:25 | NUR ---
Report was given to the Night Nurse Mich for the continuity of care . Pt is stable and VS are within normal limits under ozymizer 10 liters . Patient saturation fluctuating drastically
--- NOTE | 2020-05-29 19:37 | NUR ---
RECEIVED REPORT FROM SAKSHI RN, PT RESTING IN BED ON 3L OXYMIZER, VSS, NO SIGNS OF DISTRESS, ABLE TO FOLLOW COMMANDS, PULSES PALPABLE UPPER AND LOWER EXTREMITIES, BOWEL SOUND ACTIVE, SAFETY PROTOCOLS IN PLACE WILL CONTINUE TO MONITOR PT Addendum: 05/29/20 at 1941 by Segundo Song RN 12L OXYMIZER
--- NOTE | 2020-05-29 20:00 | NUR ---
PT TRANSFERRED TO TELE RM 128B
--- NOTE | 2020-05-29 20:01 | NUR ---
RECEIVED ENDORSEMENT FROM SOUNDSCRIBER MECHANIC. PT ON OXIMIZER 12L O2 SAT WNL, NO DISTRESS, NO SOB, NO C/O PAIN, AOX4, DROPLET ISO OBSERVED, PLAN OF CARE DISCUSSED, FALL PREVENTION PROTOCOL, CALL LIGHT WITHIN REACH.
--- NOTE | 2020-05-29 21:55 | NUR ---
DUE MEDS GIVEN ORDERED, TOLERATED WELL.
[2020-05-30] VITALS (10 sets, daily range): BP systolic 87–128; BP diastolic 46–75
[2020-05-30] MEDS: SODIUM BICARBONATE 650 MG TAB PO SCH ×2 (00:16→09:00)
[2020-05-30] MEDS: ACETAMINOPHEN 325 MG TAB PO PRN (00:17)
--- NOTE | 2020-05-30 01:00 | NUR ---
PT IS STABLE, ENDORSED TO MEL, RN FOR CONTINUITY OF CARE.
--- NOTE | 2020-05-30 01:02 | NUR ---
RECEIVED PT IN STABLE CONDITION FROM ROBER GREGORY FOR CONTINUITYOF CARE. PT IS ASLEEP. WITH NO RESPIRATORY DISTRESS NOTED. IVF INFUSING WELL ON THE LT FA . BED ON LOWM POSITION. CALL LIGHT PLACED WITHIN REACH. WILL CONTINUE TO MONITOR.
[2020-05-30] MEDS: MAG SULF 2000 MG/WATER PREMIX 50 ML IV PRN (02:08)
--- NOTE | 2020-05-30 02:08 | NUR ---
MAGNESIUM LEVEL ONLY 1.4. MAGNESIUM RIDER 2OOOMG STARTED AFTER VERIFIED WITH ROBER JHA . WILL CONTINUE TO MONITOR.
--- NOTE | 2020-05-30 03:10 | NUR ---
@ 0235 PT AWAKE. O2 SAT ONLY 75. NO SOB NOTED. RT CALLED. O2 CHANGED TO 15L NON REBREATHER MASK. O2 SAT 85% -88%. RT SAID TO WAIT 30 MINUTES. AT THIS TIME O2 SAT 90%- 91%. NO DISTRESS NOTED.
--- NOTE | 2020-05-30 03:40 | NUR ---
MADE ROUNDS O2 SAT AT THIS TIME WHILE ASLEEP 90%.
[2020-05-30] MEDS: KCL 20 MEQ/WATER INJ PREMIX 200 ML IV PRN (03:43)
--- NOTE | 2020-05-30 03:43 | NUR ---
K LEVEL 3.1 .
--- NOTE | 2020-05-30 03:58 | NUR ---
CONTINUATION OF ABOVE NOTES. KCL RIDER IV STARTED PRN ORDER AFTER VERIFIED WITH ROBER JHA.
[2020-05-30] MEDS: BLOOD GLUCOSE MONITORING 1 DEV DEV FS SCH ×4 (06:02→21:00)
--- NOTE | 2020-05-30 06:02 | NUR ---
BLOOD SUGAR WAS CHECKED RESULT 170. INSULIN COVERAGE HUMALOG 2 UNITS GIVEN SUBQ.
[2020-05-30] MEDS: INSULIN LISPRO SLIDING SCALE 100 UNITS/ML VIAL SUBQ PRN ×4 (06:03→22:10)
[2020-05-30 06:19] LABS: HEMOGLOBIN 13.1 g/dL (12.0-16.0); LYMPHOCYTES # (AUTO) 0.5 K/uL (2.5-16.5); LYMPHOCYTES % (AUTO) 5.5 % (20.5-51.1); MONOCYTES # (AUTO) 0.3 K/uL (0.8-1.0); RED BLOOD CELL COUNT(AUTO) 4.07 MIL/uL (4.20-5.40); WHITE BLOOD COUNT (AUTO) 9.6 K/uL (4.8-10.8)
[2020-05-30] MEDS: glipiZIDE 5 MG TAB PO SCH ×2 (06:28→16:59)
[2020-05-30 06:36] LABS: HEMATOCRIT 38.1 % (36-48); MEAN CORPUSCULAR HEMOGLOBIN 32 pg (27-31); MEAN CORPUSCULAR HGB CONC 34 g/dL (33-37); MEAN CORPUSCULAR VOLUME 93.6 fL (80-94); NEUTROPHILS # (AUTO) 8.8 K/uL (1.8-7.7); NEUTROPHILS % (AUTO) 91.5 % (42.2-75.2); PLATELET COUNT (AUTO) 172 K/uL (140-450); RED CELL DISTRIBUTION WIDTH 13.2 % (11.6-13.7)
[2020-05-30 07:09] LABS: ALBUMIN 1.7 g/dL (3.4-5.0); ANION GAP 13.2 (8-16); CARBON DIOXIDE 27.7 mmol/L (21-32); CREATININE 0.5 mg/dL (0.6-1.3); TOTAL BILIRUBIN 0.4 mg/dL (0.0-1.0)
--- NOTE | 2020-05-30 07:15 | NUR ---
O2 SAT 87% -88% 0N 15L NRM . PT NOT IN ANY DISTRESS. RT WAS CALLED AND WILL SEE PT.
--- NOTE | 2020-05-30 07:30 | NUR ---
ENDORSED PT IN STABLE CONDITION TO AM NURSE FOR CONTINUITY OF CARE.
--- NOTE | 2020-05-30 07:35 | NUR ---
RECEIVED PT FROM WORLD RENOWNED CHEF AND RESTAURANT OWNER NURSE, 3 IVS NOTED R FA 20G, RAC 20G, LFA 20G , BRODY CATH PRESENT W/250 ML CLEAR YELLOW URINE, NRB @15LPM, TELE MONITOR ON, FALL AND SAFETY PRECAUTIONS IN PLACE. WILL CONTINUE TO MONITOR.
[2020-05-30 07:50] LABS: POTASSIUM 2.9 mmol/L (3.5-5.1)
[2020-05-30] MEDS: SODIUM PHOS / POTASSIUM PHOS 1 PKT PDR PO SCH ×3 (08:59→16:58)
[2020-05-30] MEDS: metFORMIN 500 MG TAB PO SCH ×2 (08:59→16:59)
[2020-05-30] MEDS: ASCORBIC ACID 500 MG TAB PO SCH (08:59)
[2020-05-30] MEDS: VITAMIN D 400 IU TAB PO SCH (09:00)
[2020-05-30] MEDS: ENOXAPARIN 40 MG/0.4 ML SYR SUBQ SCH (09:06)
[2020-05-30] MEDS: INSULIN LANTUS 100 UNITS/ML 10 ML VIAL SUBQ SCH (09:07)
--- NOTE | 2020-05-30 09:07 | NUR ---
PT WAS GIVEN THE SCHEDULED AM MEDICATIONS NOW, PARAMETERS CHECKED AND WILL MONITOR PT.
[2020-05-30] MEDS ORDERED: POTASSIUM CHLORIDE 10 MEQ TABER PO SCH (10:30)
[2020-05-30] MEDS ORDERED: POTASSIUM CHLORIDE 40 MEQ, LIDOCAINE MPF 1% 25 MG in NACL 0.9% 250 ML IV SCH (11:00)
[2020-05-30] MEDS: SODIUM FERRIC GLUCONATE 125 MG in NACL 0.9% 100 ML IV SCH (11:53)
--- NOTE | 2020-05-30 11:53 | NUR ---
PT WAS GIVEN THE SCHEDULED IVPB AND ORAL MEDICATIONS NOW, PARAMETERS CHECKED, WILL MONITOR PT.
--- NOTE | 2020-05-30 12:30 | NUR ---
CALLED TO BEDSIDE AROUND 0730 FOR PATIENT DESATURATION TO LOW 80'S ON 100% NRB. PLACED PT ON HFNC AT 35LPM AND 100%. DR GRAF NOTIFIED GAVE ORDER WELL FOR BIPAP PRN. CALLED TO BEDSIDE AROUND 1230 FOR PATIENT DESATURATING AGAIN. PLACED PT ON BIPAP 16/8, RATE 12, 100%. SATURATION STABLE AT 92%. WILL CONTINUE TO MONITOR.
--- NOTE | 2020-05-30 12:37 | NUR ---
PT WAS PUT ON A BIPAP NOW BY RT ORDERED BY DR. GRAF, SATURATING AT 92%
[2020-05-30] MEDS: methylPREDNISolone SS 40 MG/ML VIAL IVP SCH ×2 (13:24→20:45)
--- NOTE | 2020-05-30 13:24 | NUR ---
PT WAS GIVEN SCHEDULED MEDIATIONS, VIA IV PUSH, IVPB AND ORAL, PT WAS ASSISTED TO EAT, WILL MONITOR PT.
[2020-05-30] MEDS: REMDESIVIR (EUA) 100 MG in NACL 0.9% 100 ML IV SCH (13:27)
--- NOTE | 2020-05-30 14:57 | NUR ---
PT WAS GIVEN IVPB ROCEPHIN NOW. WILL MONITOR PT.
[2020-05-30] MEDS: NACL 0.9% 1,000 ML IV SCH ×2 (15:10→23:53)
--- NOTE | 2020-05-30 17:00 | NUR ---
PT SATURATION IN LOW 80'S ON BIPAP 16/8. INCREASE SETTING TO 20/12. SATURATION IMPROVED SLIGHTLY. GAVE TELEPHONE READ BACK OF ABG RESULTS TO DR. GRAF. STATES TO TRANSFER PT TO ICU AND ORDER CHEST XRAY FOR TOMORROW MORNING. NOTIFIED RN OF DR. VANEGAS.
--- NOTE | 2020-05-30 17:05 | NUR ---
PT WAS GIVEN INSULIN 6UNITS ON THE ABDOMEN FOR BLOOD GLUCOSE OF 283, AND SCHEDULED MEDICATIONS, WILL MONITOR PT.
--- NOTE | 2020-05-30 17:14 | NUR ---
SPOKE TO RESPIRATORY THERAPIST, CHELSEA AND SAID THAT HE SPOKE TO DR. GRAF AND REPORTED THE PT'S BLOOD GAS RESULT AND MD MADE A TELEPHONE ORDER TO PLACE PT IN ICU FOR MONITORING AND POSSIBLE INTUBATION, BECAUSE BLOOD GAS RESULT IS NOT SHOWING GOOD OXYGENATION FOR PT.
--- NOTE | 2020-05-30 19:30 | NUR ---
RECEIVED PT FROM TELE. PT TRANSFER TO ICU FOR CLOSE MONITORING PER PULMO. PER ELEANOR RICHTER PT IS COVID 19 POSITIVE. PT HAS EPISODE DESATURATION AND PER MD TRANSFER TO ICU. PT COME WITH RT AND 3 NURSES. PT ON BiPAP SETTINGS: IPAP 20, EPAP 12. PT ALERT ORIENTED X4. ABLE TO MAKE ALL NEEDS KNOWN. DENIES ANY PAIN.PER REPORT PT HAS ORDER FOR CONVALESCENT PLASMA AND NOT GIVEN YET D/T NOT READY YET. PT ON IV NS AT 66 CC/HR. PERIPHERAL LINE TO LFA NO 22 AND NO 20 TO RH. PER REPORT POTASSIUM WAS 2.9 AND KCL WAS GIVEN. LAB IN AM. SKIN INTACT WARM TO TOUCH.ABD SOFT NON DISTENDED, F/C IN PLACE WITH YELLOW CLEAR COLOR.
--- NOTE | 2020-05-30 19:30 | NUR ---
TRANSFERRED PT TO ICU FOR MONITORING AND FOR CONTINUITY FO CARE.
--- NOTE | 2020-05-30 19:33 | NUR ---
RECEIVED PATIENT FROM AM SHIFT. PATIENT WAS SEEN AND ASSESSED. PT WAS SUCCESSFULLY TRANSFER TO ICU. PATIENT IS ON BiPAP SETTINGS: IPAP 20, EPAP 12, BACK UP RATE 12 AND FiO2 100% WITH SPO2 OF 94%. BiPAP IS PLUGGED IN RED OUTLET. ALARMS SET AND AUDIBLE TO ENVIRONMENT. PATIENT IS IN NO APPARENT RESPIRATORY DISTRESS AT THIS TIME. RNs AT BEDSIDE. WILL CONTINUE TO MONITOR PATIENT.
--- NOTE | 2020-05-30 21:00 | NUR ---
BLOOD SUGAR IS 233 AND 4 UNITS INSULIN GIVEN ORDER.
--- NOTE | 2020-05-30 21:30 | NUR ---
PT HAS X1 DIARRHEA MEDIUM .KEPT CLEAN AND DRY.
--- NOTE | 2020-05-30 23:00 | NUR ---
VANNESSA THE DAUGHTER CALL AND UPDATED PT CONDITION.
[2020-05-31] VITALS (22 sets, daily range): BP systolic 91–118; BP diastolic 47–69
--- NOTE | 2020-05-31 01:16 | NUR ---
PT SLEEP GOOD.NO DISTRESS CONT ON BIPAP, ABLE TO POSITION HER SELF.
--- NOTE | 2020-05-31 01:24 | NUR ---
F/U WITH LAB REGARDING PLASMA CONVALESCENT FOR PT AND HE SAID WILL F/U AND CALL BACK.
--- NOTE | 2020-05-31 02:30 | NUR ---
PT HAS X1 BM LARGE LIQUIDS. GOOD JOAO CARE GIVEN.
--- NOTE | 2020-05-31 04:30 | NUR ---
AM CARE GIVEN. KEPT CLEAN AND DRY.
[2020-05-31] MEDS: methylPREDNISolone SS 40 MG/ML VIAL IVP SCH ×3 (05:20→20:19)
[2020-05-31 06:18] LABS: BASOPHILS % (AUTO) 0.1 % (0.0-2.0); HEMATOCRIT 37.2 % (36-48); HEMOGLOBIN 12.8 g/dL (12.0-16.0); LYMPHOCYTES # (AUTO) 0.3 K/uL (2.5-16.5); LYMPHOCYTES % (AUTO) 2.6 % (20.5-51.1); MEAN CORPUSCULAR HEMOGLOBIN 32 pg (27-31); MEAN CORPUSCULAR HGB CONC 34 g/dL (33-37); MEAN CORPUSCULAR VOLUME 94.2 fL (80-94); MONOCYTES # (AUTO) 0.2 K/uL (0.8-1.0); MONOCYTES % (AUTO) 2.2 % (1.7-9.3); NEUTROPHILS # (AUTO) 9.4 K/uL (1.8-7.7); NEUTROPHILS % (AUTO) 95.1 % (42.2-75.2); PLATELET COUNT (AUTO) 210 K/uL (140-450); RED BLOOD CELL COUNT(AUTO) 3.95 MIL/uL (4.20-5.40); RED CELL DISTRIBUTION WIDTH 13.4 % (11.6-13.7); WHITE BLOOD COUNT (AUTO) 9.9 K/uL (4.8-10.8)
--- NOTE | 2020-05-31 06:30 | NUR ---
BLOOD SUGAR 225 AND 4 UNITS INSULIN GIVEN ORDER.
[2020-05-31] MEDS: BLOOD GLUCOSE MONITORING 1 DEV DEV FS SCH ×4 (06:33→21:59)
[2020-05-31] MEDS: INSULIN LISPRO SLIDING SCALE 100 UNITS/ML VIAL SUBQ PRN ×4 (06:34→22:00)
[2020-05-31 07:00] LABS: ALBUMIN 1.6 g/dL (3.4-5.0); CARBON DIOXIDE 28.4 mmol/L (21-32); CREATININE 0.5 mg/dL (0.6-1.3); POTASSIUM 3.4 mmol/L (3.5-5.1); TOTAL BILIRUBIN 0.4 mg/dL (0.0-1.0)
--- NOTE | 2020-05-31 07:21 | NUR ---
REPORT GIVEN TO AM SHIFT. PT IS SLEEPING AND STABLE AT THIS TIME.
--- NOTE | 2020-05-31 07:22 | NUR ---
RECEIVED WINDOW SIDE REPORT FROM UNIVERSITY DEAN NURSE. PT IN BED, AROUSABLE TO LIGHT PAIN, RASS -3 ETT TO VENT ACVC FIO2 100%, RR 18, PEEP 10. BREATHING EVEN AND UNLABORED, NO SIGNS OF ACUTE DISTRESS NOTED. OG TUBE TO FEEDING, GLUCERNA 1.2 RUNNING @ 10 ML/HR. JUANY SOFT WRIST RESTRAINS IN PLACE, NO SIGNS OF INJURY NOTED. BRODY DRAINING TO GRAVITY, CLEAR YELLOW URINE. CHRISTINA PICC INFUSING MIDAZOLAM @ 10 MG/HR, FENTANYL @ 0.7 MCG/KG/HR, LEVOPHED @ 2 MCG/ZENY. L AC 20 CLEAN DRY AND INTACT, G, L FA 20 G CLEAN DRY AND INTACT. HOB 30 DEGREES, BED IN LOW POSITION. FILLING HAND IN PLACE. SAFETY MEASURES IN PLACE.
--- NOTE | 2020-05-31 07:25 | NUR ---
RECEIVED WINDOWSIDE REPORT FROM WIND FARM DESIGNER NURSE, PT ALERT AND ORIENTED, ABLE TO MAKE NEEDS KNOWN . BREATHING EVEN AND UNLABORED, NO SIGNS OF ACUTE DISTRESS NOTED, ON BIPAP, SPO2 93%. BRODY DRAINING TO GRAVITY, CLEAR YELLOW URINE. L FA 22 G INFUSING NS @ 66 ML/HR. L AC 2O G CLEAN DRY AND INTACT. HOB 30 DEGREES, IN LOW POSITION. SURGICAL GARMENT ASSEMBLY SUPERVISOR IN PLACE. SAFETY MEASURES IN PLACE.
[2020-05-31] MEDS: SODIUM PHOS / POTASSIUM PHOS 1 PKT PDR PO SCH ×3 (08:14→16:49)
[2020-05-31] MEDS: POTASSIUM CHLORIDE 10 MEQ TABER PO PRN (08:14)
[2020-05-31] MEDS: metFORMIN 500 MG TAB PO SCH ×2 (08:14→16:49)
[2020-05-31] MEDS: glipiZIDE 5 MG TAB PO SCH ×2 (08:14→16:49)
[2020-05-31] MEDS: ENOXAPARIN 40 MG/0.4 ML SYR SUBQ SCH (08:17)
--- NOTE | 2020-05-31 08:18 | NUR ---
ADMINISTERED MORNING MEDS PER MD ORDER. KDUR ADMINISTERED FOR LOW K VALUE OF 3.4. BLOOD SUGAR CHECKED, 194, ADMINISTERED LANTUS PER MD ORDER. MED EDUCATION PROVIDED, PT VERBALIZES UNDERSTANDING. PT TOLERATED MEDS WELL WITH SIPS OF WATER. HOB 30 DEGREES, BIPAP IN PLACE. NO SINGS OF ACUTE DISTRESS NOTED. EARTH MOVING MACHINE OPERATOR IN PLACE. SAFETY MEASURES IN PLACE.
[2020-05-31] MEDS: INSULIN LANTUS 100 UNITS/ML 10 ML VIAL SUBQ SCH (08:33)
--- NOTE | 2020-05-31 09:33 | NUR ---
05/31/20 RD FOLLOW UP COMPLETED PLEASE REFER TO NUTRITION ASSESSMENT UNDER CARE ACTIVITY FOR ESTIMATED NUTRITIONAL NEEDS. 1. CONTINUE CLEAR LIQUIDS TOLERATED 2. RECOMMEND ENSURE CLEAR ONCE PER DAY 3. IF/WHEN MEDICALLY APPROPRIATE, RECOMMEND INITIATING CCHO 45 GM DIET. 4. CONSULT RDN PRN. 5. RD WILL FOLLOW UP 2-3 DAYS; HIGH RISK SCAR GUZMAN RD
--- NOTE | 2020-05-31 09:35 | NUR ---
DR VICTORIA IS ROUNDING ON PATIENT.
--- NOTE | 2020-05-31 09:55 | NUR ---
DR CHOE IS ROUNDING ON PATIENT.
--- NOTE | 2020-05-31 10:15 | NUR ---
PLASMA TRANSFUSION STARTED, WILL MONITOR FOR ANY ADVERSE REACTION. PATIENT AWAKE AND RESTING ON BED, BIPAP IN PLACE, NO SKIN REDNESS OR BREAK DOWN NOTED. PATIENT DENIED PAIN, NAUSEA, VOMITING AND SOB. NO SIGNS OF ACUTE DISTRESS NOTED. ANESTHETIC ASSISTANT IN PLACE. SAFETY MEASURES IN PLACE.
[2020-05-31] MEDS: SODIUM FERRIC GLUCONATE 125 MG in NACL 0.9% 100 ML IV SCH (12:01)
--- NOTE | 2020-05-31 12:02 | NUR ---
BLOOD GLUCOSE CHECKED 408, WILL NOTIFY MD. ADMINISTERED FERRLECIT PER MD ORDER. PATIENT IS EATING HER LUNCH AT THIS TIME. DENIED PAIN, SOB, NAUSEA AND VOMITING. NO SIGNS OF ACUTE DISTRESS NOTED. RIB BENDER IN PLACE. SAFETY MEASURES IN PLACE.
--- NOTE | 2020-05-31 12:17 | NUR ---
PLASMA TRANSFUSION COMPLETED, NO ADVERSE REACTION NOTED, PATIENT IS RESTING ON BED AND WATCHING TV. DENIED PAIN, SOB AND ANY NAUSEA, NO SIGNS OF ACUTE DISTRESS NOTED. PAID SEARCH SPECIALIST IN PLACE, SAFETY MEASURES IN PLACE.
[2020-05-31] MEDS ORDERED: INSULIN LANTUS 100 UNITS/ML 10 ML VIAL SUBQ SCH (13:16)
--- NOTE | 2020-05-31 13:30 | NUR ---
DUE MEDICATIONS ADMINISTERED, PT TOLERATED WELL, NO DISTRESS NOTED, WILL CONTINUE TO MONITOR.
[2020-05-31] MEDS: REMDESIVIR (EUA) 100 MG in NACL 0.9% 100 ML IV SCH (13:50)
--- NOTE | 2020-05-31 16:49 | NUR ---
DUE MEDICATIONS ADMINISTERED, PT TOLERATED WELL, NO DISTRESS NOTED, WILL CONTINUE TO MONITOR.
--- NOTE | 2020-05-31 17:20 | NUR ---
PT DID BM, CHANGED AND CLEAN PT, TOLERATED WELL, WILL CONTINUE TO MONITOR.
--- NOTE | 2020-05-31 17:50 | NUR ---
PT REMAINS ON BIPAP TOLERATING WELL. BIPAP ALARMS ON AND FUNCTIONING.
--- NOTE | 2020-05-31 18:51 | NUR ---
PT ATE 100% OF DINNER, TOLERATED WELL, WILL CONTINUE TO MONITOR.
--- NOTE | 2020-05-31 19:13 | NUR ---
ENDORSED PT TO DOOR TO DOOR FUNDRAISING COLLECTOR NURSE TIAN RN, PT RESTING, NO DISTRESS NOTED, CALL LIGHT WITHIN REACH.
--- NOTE | 2020-05-31 19:29 | NUR ---
RECEIVED REPORT FROM DAY SHIFT RN, PT AWAKE SITTING UP IN BED, BOLIVIAN SPEAKING. AOX3, FOLLOWING COMMANDS. SR 70-80S, PALPABLE PULSES INTACT. NO EDEMA. LUNGS DIMINISHED, ON BIPAP 12/20 ON 100% FIO2. TOLERATING BIPAP @ THIS TIME. ABD SOFT NON DISTENDED. PT DENIES N/V. + DIARRHEA, PT ON CLEAR LIQUID DIET. TOLERATING PO INTAKE. BRODY CATH DRAINING YELLOW URINE. SKIN INTACT. PERIPHERAL IV TO L FA X2. BED LOCKED IN LOWEST POSITION. CALL LIGHT WITHIN REACH. SAFETY PRECAUTIONS IN PLACE. WILL CONTINUE TO OBSERVE.
--- NOTE | 2020-05-31 19:55 | NUR ---
RECEIVED PATIENT FROM DAY SHIFT ON BIPAP IPAP 20, EPAP 12, RATE 12, 100 PERCENT FIO2. BIPAP PLUGGED INTO RED OUTLET. BMV AT BEDSIDE.ETT SECURED. ALARMS SET. WILL CONT TO MONITOR
--- NOTE | 2020-05-31 21:30 | NUR ---
BS 189, COVERED VIA HUMALOG SLIDING SCALE WILL CONTINUE TO OBSERVE.
--- NOTE | 2020-05-31 21:55 | NUR ---
X1 BM NOTED, SOFT PASTY. PT DENIES ACUTE PAIN @ THIS TIME. DENIES SOB. TOLERATING BIPAP 92% SPO2 ON 100% FIO2. WILL CONTINUE TO OBSERVE.
[2020-05-31] MEDS: NACL 0.9% 1,000 ML IV SCH (21:59)
--- NOTE | 2020-05-31 22:27 | NUR ---
SPOKE WITH VANNESSA, DAUGHTER, PT CONDITION UPDATED TO DAUGHTER. VANNESSA REQUESTING TO VISIT MOTHER, ADVISED VANNESSA OF CURRENT HOSPITAL POLICY. DAUGHTER TO BRING PHONE CHARGE IN TOMORROW. NO ACUTE DISTRESS NOTED. WILL CONTINUE TO OBSERVE
[2020-06-01] VITALS (22 sets, daily range): BP systolic 91–130; BP diastolic 43–77
--- NOTE | 2020-06-01 00:15 | NUR ---
PT HAS EYES CLOSED; TOLERATING BIPAP, NO S/S OF RESP DISTRESS NOTED. WILL CONTINUE TO OBSERVE
--- NOTE | 2020-06-01 02:05 | NUR ---
PT GIVEN WATER; BIPAP PAUSED; PT DESAT TO 78%, MASK REAPPLIED, SPO2 INCREASED TO 93%. WILL CONTINUE TO OBSERVE.
--- NOTE | 2020-06-01 04:30 | NUR ---
LINEN CHANGED; OFFERED, CHG WIPES, PT REFUSED @ THIS TIME. WILL CONTINUE TO OBSERVE
[2020-06-01 05:08] LABS: BASOPHILS % (AUTO) 0.1 % (0.0-2.0); HEMATOCRIT 32.9 % (36-48); HEMOGLOBIN 11.2 g/dL (12.0-16.0); LYMPHOCYTES # (AUTO) 0.4 K/uL (2.5-16.5); LYMPHOCYTES % (AUTO) 2.2 % (20.5-51.1); MEAN CORPUSCULAR HEMOGLOBIN 32 pg (27-31); MEAN CORPUSCULAR HGB CONC 34 g/dL (33-37); MEAN CORPUSCULAR VOLUME 94.1 fL (80-94); MONOCYTES # (AUTO) 0.3 K/uL (0.8-1.0); MONOCYTES % (AUTO) 1.8 % (1.7-9.3); NEUTROPHILS # (AUTO) 17.2 K/uL (1.8-7.7); NEUTROPHILS % (AUTO) 95.9 % (42.2-75.2); PLATELET COUNT (AUTO) 271 K/uL (140-450); RED BLOOD CELL COUNT(AUTO) 3.49 MIL/uL (4.20-5.40); RED CELL DISTRIBUTION WIDTH 13.2 % (11.6-13.7); WHITE BLOOD COUNT (AUTO) 17.9 K/uL (4.8-10.8)
[2020-06-01] MEDS: methylPREDNISolone SS 40 MG/ML VIAL IVP SCH ×3 (05:37→20:41)
[2020-06-01 06:06] LABS: ALBUMIN 1.5 g/dL (3.4-5.0); ANION GAP 16.7 (8-16); CARBON DIOXIDE 27.1 mmol/L (21-32); CREATININE 0.6 mg/dL (0.6-1.3); TOTAL BILIRUBIN 0.3 mg/dL (0.0-1.0)
[2020-06-01 06:20] LABS: POTASSIUM 2.8 mmol/L (3.5-5.1)
[2020-06-01] MEDS: INSULIN LISPRO SLIDING SCALE 100 UNITS/ML VIAL SUBQ PRN ×3 (06:28→18:15)
[2020-06-01] MEDS: BLOOD GLUCOSE MONITORING 1 DEV DEV FS SCH ×4 (06:28→20:41)
[2020-06-01] MEDS: glipiZIDE 5 MG TAB PO SCH ×2 (06:34→17:14)
[2020-06-01] MEDS: KCL 20 MEQ/WATER INJ PREMIX 200 ML IV PRN (06:35)
--- NOTE | 2020-06-01 06:40 | NUR ---
RECEIVED CRITICAL K+ 2.8 PRN K RIDER 20 MEQ GIVEN, + BLOOD CULTURES, GRAM + COCCI IN CLUSTERS, LACTIC 3.4, CA 6.7. DR VICTORIA AWARE PHYSICIAN TO SEE PT.
--- NOTE | 2020-06-01 07:13 | NUR ---
ENDORSED CARE TO DAY SHIFT RN.
--- NOTE | 2020-06-01 07:30 | NUR ---
BEDSIDE REPORT RECEIVED FROM FLASHER ADJUSTER NURSE, PT RESTING COMFORTABLY IN NO ACUTE DISTRESS, RESP EVEN UNLABORED ON BIPAP 100% FIO2, SKIN WARM DRY COLOR WNL, PT AROUSES EASILY TO VOICE, ABD SOFT NON TENDER, MOVES ALL EXT, BRODY CATH IN PLACE, SKIN INTACT, PLAN OF CARE REVIEWED, ALL SAFETY MEASURES IN PLACE, IV TO LEFT FA C/O PAIN WITH KCL INFUSION, INFUSION SLOWED AND DILUTED WITH NS, RAC 20G IV FLUSHES WELL, SITE WNL, NO OTHER NEEDS VOICED AT THIS TIME, WILL CONTINUE TO MONITOR
[2020-06-01] MEDS: metFORMIN 500 MG TAB PO SCH ×2 (08:06→17:14)
[2020-06-01] MEDS: SODIUM PHOS / POTASSIUM PHOS 1 PKT PDR PO SCH ×3 (08:06→17:14)
[2020-06-01] MEDS: INSULIN LANTUS 100 UNITS/ML 10 ML VIAL SUBQ SCH (08:07)
[2020-06-01] MEDS: ENOXAPARIN 40 MG/0.4 ML SYR SUBQ SCH (08:07)
[2020-06-01] MEDS: ACETAMINOPHEN 325 MG TAB PO PRN ×2 (08:37→18:23)
--- NOTE | 2020-06-01 08:45 | NUR ---
AM MEDS GIVEN, TYLENOL GIVEN FOR TEMP 100.5, EXTRA BLANKETS REMOVED.
[2020-06-01] MEDS ORDERED: Z-GUARD PASTE TP ONE (10:03)
[2020-06-01] MEDS: NACL 0.45% 1,000 ML IV SCH (11:00)
[2020-06-01] MEDS ORDERED: KCL 20 MEQ/WATER INJ PREMIX 100 ML IV ONE (11:00)
[2020-06-01] MEDS: SODIUM FERRIC GLUCONATE 125 MG in NACL 0.9% 100 ML IV SCH (12:00)
--- NOTE | 2020-06-01 12:25 | NUR ---
TYLENOL GIVEN FOR TEMP 100.6
--- NOTE | 2020-06-01 12:30 | NUR ---
LOOSE BM IN BED GONZALES, PERICARE DONE.
--- NOTE | 2020-06-01 13:03 | NUR ---
PT SITTING UP EATING LUNCH WHILE ON NON-REBREATHER MASK.
[2020-06-01] MEDS: Z-GUARD PASTE TP SCH (13:05)
[2020-06-01] MEDS: REMDESIVIR (EUA) 100 MG in NACL 0.9% 100 ML IV SCH (13:45)
--- NOTE | 2020-06-01 14:32 | NUR ---
PT REMAINS ON HIGH FLOW VAPOTHERM 100% 35 LPM AND TOLERATING WELL NO RESPIRATORY DISTRESS. SPO2 91%. WILL CONTINUE TO MONITOR.
--- NOTE | 2020-06-01 15:34 | NUR ---
DR SALES AT BEDSIDE, NOTIFIED OF FEVER (tMAX 100.6) AND DIARRHEA, ORDER FOR ECHO RECEIVED.
--- NOTE | 2020-06-01 15:35 | NUR ---
PT REQUESTS BEDPAN, PT PLACED ON BEDPAN WITH MINIMAL ASSIST.
--- NOTE | 2020-06-01 16:20 | NUR ---
DR BULLOCK AT BEDSIDE
--- NOTE | 2020-06-01 16:34 | NUR ---
NEW IV TO RIGT WRIST 20G, LEFT AC LEAKING, DC'D
--- NOTE | 2020-06-01 17:48 | NUR ---
PT PLACED BACK ON BIPAP DUE TO SPO2 LOW 74% WITH ADEQUATE WAVEFORM. BIPAP SETTINGS 20/12, R12 AND FIO2 95%. PT TOLERATING WELL NO SOB. BIPAP ALARMS ON AND FUNCTIONING.
--- NOTE | 2020-06-01 18:30 | NUR ---
TYLENOL GIVEN FOR FEVER 101.0 TEMPORAL, PT JOSE MANUEL DINNER 100% WITH NON-REBREATHER MASK, PT PLACED BACK ON BIPAP, ENCOURAGED TO PRONE FOR BETTER OXYGENATION, PT PREFERS TO STAY ON HER LEFT SIDE, O2SAT IMPROVED TO 93%, CALL GUILLERMO WITHIN REACH, SIDE RAILS UP, ALL SAFETY MEASURES IN PLACE.
--- NOTE | 2020-06-01 20:00 | NUR ---
RECEIVED REPORT FROM DAY SHIFT RN. PT IS ALERT AND AWAKE. PT ON BIPAP FIO2 100%. SATURATION ABOVE 90'S. RESPIRATION EVEN AND UNLABORED. SYMMETRICAL CHEST MOVEMENT. DIMINISHED UPON AUSCULTATION. ORAL MUCOSA PINK AND MOIST. SKIN WARM, DRY AND INTACT. PERIPHERAL ACCESS ON THE RIGHT WRIST ASYMPTOMATIC, PATENT AND INTACT INFUSING 1/2 NS @ 75 ML/HR. NO REPORT OF DISCOMFORT. PT ON CCHO MECHANICAL SOFT DIET WITH GOOD APPETITE. BRODY CATHETER IN PLACE DRAINING TO GRAVITY. PULSES PALPABLE. SAFETY MEASURES IN PLACE. BED IN LOW AND LOCKED POSITION. ISOLATION PRECAUTIONS MAINTAINED. WILL CONTINUE TO MONITOR PT.
[2020-06-01] MEDS: ENOXAPARIN 60 MG/0.6 ML SYR SUBQ SCH (20:41)
[2020-06-02] VITALS (23 sets, daily range): BP systolic 98–167; BP diastolic 46–98
--- NOTE | 2020-06-02 | NUR ---
PT HAD A LARGE BOWEL MOVEMENT. PT DENIES PAIN/DISCOMFORT. PT ABLE TO SELF TURN. NO DISTRESS NOTED. WILL CONTINUE TO MONITOR.
[2020-06-02] MEDS: Z-GUARD PASTE TP SCH ×2 (01:00→12:20)
--- NOTE | 2020-06-02 04:00 | NUR ---
MORNING CARE PROVIDED. BRODY CARE, JOAO CARE. NO COMPLAINTS NOTED. WILL CONTINUE TO MONITOR.
[2020-06-02] MEDS: NACL 0.45% 1,000 ML IV SCH ×3 (06:00→22:00)
[2020-06-02 06:30] LABS: ALBUMIN 1.8 g/dL (3.4-5.0); ANION GAP 11.7 (8-16); CARBON DIOXIDE 30.2 mmol/L (21-32); CREATININE 0.6 mg/dL (0.6-1.3); TOTAL BILIRUBIN 0.5 mg/dL (0.0-1.0)
[2020-06-02 06:35] LABS: POTASSIUM 2.9 mmol/L (3.5-5.1)
--- NOTE | 2020-06-02 06:40 | NUR ---
CRITICAL LABS REPORTED TO DR. MARTINEZ. NO CHANGE IN ORDERED. SEE CRITICAL LAB NOTES.
[2020-06-02] MEDS: methylPREDNISolone SS 40 MG/ML VIAL IVP SCH ×3 (06:44→21:03)
[2020-06-02] MEDS: KCL 20 MEQ/WATER INJ PREMIX 200 ML IV PRN (06:45)
[2020-06-02 06:58] LABS: MAGNESIUM 1.2 mg/dL (1.8-2.4); PHOSPHORUS 3.8 mg/dL (2.5-4.9)
[2020-06-02] MEDS: BLOOD GLUCOSE MONITORING 1 DEV DEV FS SCH ×4 (07:30→21:01)
--- NOTE | 2020-06-02 07:30 | NUR ---
BEDSIDE REPORT RECIEVED FROM BOBBIN COIL WINDER NURSE, PT RESTING QUIETLY WITH BIPAP95%FIO2, RESP EVEN UNLABORED, O2 SAT 95%, SKIN WARM DRY COLOR WNL, IVF INFUSING WELL, SITE WNL, BRODY CATH IN PLACE, DRAINING YELLOW URINE TO GRAVITY, ABD SOFT, NON DISTENDED, BS + ALL 4Q, PT MOVES ALL EXT, ABLE TO TURN AND REPOSITION HERSELF, DENIES ANY NEEDS, POC REVIEWED, ALL SAFETY MEASURES IN PLACE, WILL CONTINUE TO MONTIOR.
--- NOTE | 2020-06-02 07:39 | NUR ---
RECEIVED PT ON BIPAP TOLERATING WELL. SETTINGS 20/12, R12 AND FIO2 95%. BIPAP IS PLUGGED INTO RED OUTLET WITH ALARMS ON AND FUNCTIONING. PT IS AWAKE AND ALERT. WILL CONTINUE TO MONITOR.
[2020-06-02] MEDS: glipiZIDE 5 MG TAB PO SCH ×2 (08:48→17:49)
[2020-06-02] MEDS: INSULIN LANTUS 100 UNITS/ML 10 ML VIAL SUBQ SCH (08:49)
[2020-06-02] MEDS: SODIUM PHOS / POTASSIUM PHOS 1 PKT PDR PO SCH ×3 (08:49→17:48)
[2020-06-02] MEDS: metFORMIN 500 MG TAB PO SCH ×2 (08:49→17:48)
--- NOTE | 2020-06-02 08:55 | NUR ---
ATTEMPTING TO EAT BREAKFAST WITH HIGH FLOW O2 VIA NC, RT EVANS AND CHIARA VILLAFUERTE AT BEDSIDE TO ASSIST.
[2020-06-02] MEDS: INSULIN LISPRO SLIDING SCALE 100 UNITS/ML VIAL SUBQ PRN ×4 (09:01→21:02)
[2020-06-02] MEDS: ENOXAPARIN 60 MG/0.6 ML SYR SUBQ SCH ×2 (09:01→21:03)
--- NOTE | 2020-06-02 09:32 | NUR ---
PT PLACED BACK ON BIPAP AFTER DESATURATING WHEN PLACED ON HIGH FLOW VAPOTHERM TO EAT BREAKFAST. NURSE MADE AWARE.
[2020-06-02] MEDS ORDERED: MAG SULF 2000 MG/WATER PREMIX 50 ML IV ONE (10:15)
[2020-06-02] MEDS ORDERED: KCL 20 MEQ/WATER INJ PREMIX 100 ML IV ONE (10:15)
[2020-06-02] MEDS: SODIUM FERRIC GLUCONATE 125 MG in NACL 0.9% 100 ML IV SCH (12:00)
--- NOTE | 2020-06-02 12:02 | NUR ---
PT ENCOURAGED TO PRONE, PT REFUSES OR HAVING DIFFICULTY UNDERSTANDING RATIONALE, WILL EDUCATE AGAIN.
--- NOTE | 2020-06-02 13:15 | NUR ---
PT TOLERATING BIPAP WELL AT THIS TIME. SPO2 HAS NOW IMPROVED. BIPAP ALARMS ON AND FUNCTIONING. WILL CONTINUE TO MONITOR.
--- NOTE | 2020-06-02 14:02 | NUR ---
DAUGHTER VANNESSA CALLED FOR CONDITION UPDATE, EXPLAINED THAT PT SHOULD BE LYING PRONE IF POSSIBLE TO IMPROVE OXYGENATION, ASKED VANNESSA TO ENCOURAGE PT TO PRONE, VANNESSA CALLING PT ON HER PHONE NOW. PT POSITIONED HERSELF PRONE AT THIS TIME, O2SAT IMPROVED FROM 90 TO 98%
--- NOTE | 2020-06-02 15:54 | NUR ---
FIO2 TITRATED TO 95%. PT AWAKE AND ALERT WITH MASK ON TOLERATING WELL.
--- NOTE | 2020-06-02 17:45 | NUR ---
PT REMAINS ON BIPAP TOLERATING WELL. BIPAP ALARMS ON AND FUNCTIONING. PT AWAKE AND ALERT.
--- NOTE | 2020-06-02 18:20 | NUR ---
PO MED GIVEN PER ORDER, PT DESATURATES DOWN TO 75% WITH NON REBREATHER, AND BECOMES VERY SHORT OF BREATH, PT PLACED BACK ON BIPAP, AND ASSISTED INTO PRONE POSITION, PT COOPERATIVE.
--- NOTE | 2020-06-02 20:00 | NUR ---
RECEIVED REPORT FROM DAY SHIFT RN. DRY WEIGHT 54.4 KG. A&O X 3. SR/ST, S1S2 NOTED. RT FA 20G PERIPHERAL IV: PATENT, NO INFILTRATION/PHLEBITIS NOTED, RUNNIN.45% NS @ 75ML/HR. LUNG SOUNDS: DIMINISHED UPPER AND LOWER LOBES BILATERALLY. PT IS ON BIPAP: IPAP: 20, EPAP: 12, FIO2: 95%, RATE: 12. BOWEL SOUNDS ACTIVE IN ALL 4 QUADRANTS. DIET: CCHO-MECHANICAL SOFT. DINNER TRAY AT BEDSIDE. BRODY IN PLACE, DRAINING TO GRAVITY. SKIN INTACT. SAFETY MEASURES IN PLACE, BED LOW AND LOCKED. SIDE RAILS UP. EDUCATED ON THE USE OF THE CALL LIGHT. WILL CONTINUE TO MONITOR CLOSELY.
--- NOTE | 2020-06-02 23:00 | NUR ---
phone call to dr stacy; made aware ER md came to see pt at bedside; pt saturation down to 70's; er md did not intubate pt at this time, new orders received from dr stacy.carried out
--- NOTE | 2020-06-02 23:06 | NUR ---
CALLED TO BEDSIDE PT DESAT TO MID 70s ED WAS CONTACTED AND WE PRONED PT SPO2 BRENDA TO 87% ABG WAS ATTEMPTED AND FLASH WAS OBTAINED BUT UNSUCCESSFUL X2
[2020-06-02] MEDS ORDERED: MORPHINE SULFATE 2 MG/ML SYR IVP PRN (23:10)
[2020-06-02] MEDS ORDERED: KETOROLAC 30 MG/ML VIAL IVP PRN (23:10)
[2020-06-03] VITALS (78 sets, daily range): BP systolic 51–162; BP diastolic 20–106
[2020-06-03] MEDS: LORazepam 2 MG/ML VIAL IVP PRN ×2 (00:23→04:55)
--- NOTE | 2020-06-03 00:23 | NUR ---
PT WAS GIVEN ATIVAN PER MD ORDER. PT SATURATION IN 90s. SAFETY MEASURES IN PLACE, BED LOW AND LOCKED, SIDE RAILS UP, CALL LIGHT WITHIN REACH, WILL CONTINUE TO MONITOR CLOSELY.
[2020-06-03] MEDS: Z-GUARD PASTE TP SCH ×2 (01:00→13:25)
--- NOTE | 2020-06-03 02:00 | NUR ---
PT IS SLEEPING. NO APPARENT S/S OF DISTRESS NOTED. PT SELF REPOSITIONS, ENCOURAGED PT TO TAKE DEEP BREATHS. SAFETY MEASURES IN PLACE, BED LOW AND LOCKED, SIDE RAILS UP, CALL LIGHT WITHIN REACH. WILL CONTINUE TO MONITOR.
[2020-06-03 04:53] LABS: HEMATOCRIT 37.6 % (36-48); HEMOGLOBIN 12.7 g/dL (12.0-16.0); MEAN CORPUSCULAR HEMOGLOBIN 32 pg (27-31); MEAN CORPUSCULAR HGB CONC 34 g/dL (33-37); MEAN CORPUSCULAR VOLUME 94.7 fL (80-94); PLATELET COUNT (AUTO) 74 K/uL (140-450); RED BLOOD CELL COUNT(AUTO) 3.97 MIL/uL (4.20-5.40); RED CELL DISTRIBUTION WIDTH 13.1 % (11.6-13.7); WHITE BLOOD COUNT (AUTO) 24.1 K/uL (4.8-10.8)
[2020-06-03] MEDS: methylPREDNISolone SS 40 MG/ML VIAL IVP SCH ×3 (04:55→20:52)
[2020-06-03 05:21] LABS: ANION GAP 10.8 (8-16); CARBON DIOXIDE 31.8 mmol/L (21-32); CREATININE 0.4 mg/dL (0.6-1.3); POTASSIUM 4.6 mmol/L (3.5-5.1)
[2020-06-03 05:38] LABS: MAGNESIUM 1.5 mg/dL (1.8-2.4); PHOSPHORUS 3.8 mg/dL (2.5-4.9)
[2020-06-03 05:56] LABS: LYMPHOCYTES % (MANUAL) 1 % (20-46); MONOCYTES % (MANUAL) 1 % (5-12)
[2020-06-03] MEDS ORDERED: PROPOFOL 1000 MG/100 ML PREMIX 100 ML IV ONE (06:15)
--- NOTE | 2020-06-03 06:34 | NUR ---
PHONE CALL TO PTS DAUGHTER VANNESSA; UPDATED ON PTS PRESENT CONDITION.MADE AWARE PT IS BEING INTUBATED AT THIS TIME BY ER MD; PTS SATURATION DOWN TO 30'S.QUESTIONS ANSWERED
[2020-06-03] MEDS ORDERED: PROPOFOL 1000 MG/100 ML PREMIX 100 ML IV PRN ×2 (06:40→16:50)
--- NOTE | 2020-06-03 06:40 | NUR ---
PHONE CALL TO DR GALVAN, MADE AWARE THAT PT IS INTUBATED.NEW ORDERS RECEIVED.CARRIED OUT
--- NOTE | 2020-06-03 07:27 | NUR ---
RECEIVED BEDSIDE REPORT FROM FORESTRY FIRE AIDE NURSE KODY, PT HAS JUST BEEN INTUBATED, SEDATED GOAL RASS -3, PT CURRENTLY AT RASS +2, ETT TO VENT ACPC, FIO2 100%, PEEP 14, RATE 22, PT SATURATING @ 90%, NO SOB NOTED, PT STILL AGITATED, IV TO R FA 20G PATENT INTACT, INFUSING PROPOFOL @ 5MCG/KG/HR, DRY WEIGHT OF 48KG, AND 1/2 NS @ 75ML/HR, INFUSING WELL, PT ON RESTRAINTS, NO S/S OF INJURY, BRODY CATH IN PLACE DRAINING TO GRAVITY, OGT IN PLACE, INITIAL ASSESSMENT DONE, ALL SAFETY PRECAUTION MET, CALL LIGHT WITHIN REACH, WILL CONTINUE TO MONITOR.
[2020-06-03] MEDS: BLOOD GLUCOSE MONITORING 1 DEV DEV FS SCH ×4 (07:30→21:00)
--- NOTE | 2020-06-03 07:35 | NUR ---
CALLED TO BEDSIDE DUE TO PT DESAT PT WAS INTUBATED AND PLACED ON VENT DAY SHIFT RT WILL RESUME CARE FOR PT 7.5 ETT SECURED @ 22CM
--- NOTE | 2020-06-03 08:22 | NUR ---
PER CXR ETT PULLED BACK 3cm TO NOW 19cm TEETH/GUM. ADEQUATE VT BEING DELIVERED. PT EXTREMELY AGITATED REACHING FOR ETT. WILL CONTINUE TO MONITOR.
[2020-06-03] MEDS: INSULIN LANTUS 100 UNITS/ML 10 ML VIAL SUBQ SCH (08:45)
[2020-06-03] MEDS: metFORMIN 500 MG TAB PO SCH ×2 (08:45→17:42)
[2020-06-03] MEDS: glipiZIDE 5 MG TAB PO SCH ×2 (08:45→17:42)
[2020-06-03] MEDS: SODIUM PHOS / POTASSIUM PHOS 1 PKT PDR PO SCH ×3 (08:45→17:42)
[2020-06-03] MEDS: ENOXAPARIN 60 MG/0.6 ML SYR SUBQ SCH ×2 (09:00→20:56)
[2020-06-03] MEDS ORDERED: fentaNYL citrate 1 MG in NACL 0.9% 80 ML IV PRN (10:25)
[2020-06-03] MEDS ORDERED: MAG SULF 2000 MG/WATER PREMIX 50 ML IV SCH (10:30)
[2020-06-03] MEDS ORDERED: VANCOMYCIN PER PHARMACY MC PRN (12:40)
[2020-06-03] MEDS: INSULIN LISPRO SLIDING SCALE 100 UNITS/ML VIAL SUBQ PRN ×3 (13:25→22:49)
[2020-06-03] MEDS: SODIUM FERRIC GLUCONATE 125 MG in NACL 0.9% 100 ML IV SCH (13:27)
[2020-06-03] MEDS ORDERED: VANCOMYCIN 750 MG in NACL 0.9% 250 ML IV SCH (14:00)
[2020-06-03] MEDS: PIPERACILLIN/TAZOBACTAM 3.375 GM in DEXTROSE 5% 50 ML IV SCH ×2 (14:13→20:52)
--- NOTE | 2020-06-03 14:32 | NUR ---
06/03/20 RD RECOMMENDATIONS FOLLOW UP COMPLETED PLEASE REFER TO NUTRITION ASSESSMENT UNDER CARE ACTIVITY FOR ESTIMATED NUTRITIONAL NEEDS. 1. CONTINUE NPO 2. IF/WHEN MEDICALLY APPROPRIATE CONSIDER GLUCERNA 1.2 @ 50 ML/HR. START AT 10 ML/HR AND ADVANCE BY 10 ML/HR Q6H. 3. RECCOMEND FREE WATER FLUSH OF 115 ML Q6H 4. RECOMMEND VITAMIN C [address] WILL FOLLOW UP 2-3 DAYS; HIGH RISK SEBA[address]N ZUNIGA RD
[2020-06-03] MEDS: fentaNYL citrate - 50mL vial 2.5 MG in NACL 0.9% 200 ML IV PRN (14:53)
[2020-06-03] MEDS: MIDAZOLAM MDV 100 MG in NACL 0.9% 80 ML IV PRN (14:53)
--- NOTE | 2020-06-03 15:46 | NUR ---
PT PULLED OUT ET TUBE, THEN WENT TO PEA, NO PULSE NOTED, COMPRESSION STARTED, REFER TO CODE BLUE SHEET FOR DETAILS.
--- NOTE | 2020-06-03 16:00 | NUR ---
OGT REINSERTED, CXR ORDERED, WILL CONTINUE TO MONITOR.
[2020-06-03] MEDS: NACL 0.45% 1,000 ML IV SCH (16:20)
[2020-06-03] MEDS: NOREPINEPHRINE 4 MG in DEXTROSE 5% 250 ML IV PRN (16:31)
[2020-06-03] MEDS: VANCOMYCIN 750 MG in NACL 0.9% 250 ML IV SCH (17:18)
--- NOTE | 2020-06-03 17:20 | NUR ---
PT AGITATED AT THIS TIME REACHING FOR ETT NURSE AWARE OF PT STATUS. PEEP INCREASED TO [id number] DUE TO SPO2 86%. VENT ALARMS ON AND FUNCTIONING. ETT IS SECURE WITH A PATENT AIRWAY.
--- NOTE | 2020-06-03 19:20 | NUR ---
ENDORSED PT TO ELECTRICAL ENGINEER NURSE TIAN RICHTER FOR CONTINUOUS OF CARE
--- NOTE | 2020-06-03 19:30 | NUR ---
RECEIVED REPORT FROM DAY SHIFT NURSE. PT SEDATED RASS-3 ON PROPOFOL, FENTANYL AND VERSED DRIP. SLUGGISH PUPILS REACTIVE. BILATERAL SOFT WRIST RESTRAINTS IN PLACE. SR 80-90S NO EDEMA NOTED, PALPABLE PULSES TO DISTAL EXTREMITIES. ETT TO VENT ON 100 FIO2 PEEP 16 R 20, DIMINISHED BREATH SOUNDS, MINIMAL SECRETIONS NOTED. OGT IN PLACE, + PLACEMENT, ACTIVE BOWEL SOUNDS. CLAMPED @ THIS TIME, NPO. BRODY CATH IN PLACE, DARK YELLOW URINE NOTED. IV TO R FA NOTED, AND R UPPER ARM PICC LINE IN PLACE. LEVOPHED DRIP @ 2 MCG/MIN. SKIN INTACT. BED LOCKED IN LOWEST PLACE, HOB>30 DEGREES NOTED. SAFETY PRECAUTIONS IN PLACE. WILL CONTINUE TO OBSERVE.
[2020-06-04] VITALS (108 sets, daily range): BP systolic 70–123; BP diastolic 33–73
--- NOTE | 2020-06-04 00:25 | NUR ---
VAP ORAL CARE DONE; PT TURNED AND REPOSITIONED. FLACC 0, RASS-3.
[2020-06-04] MEDS: Z-GUARD PASTE TP SCH ×2 (01:00→13:54)
--- NOTE | 2020-06-04 04:30 | NUR ---
AM CARE DONE; LINEN CHANGED. FLACC 0 NO S/S OF DISTRESS NOTED.
[2020-06-04] MEDS: PIPERACILLIN/TAZOBACTAM 3.375 GM in DEXTROSE 5% 50 ML IV SCH ×3 (05:00→20:36)
[2020-06-04] MEDS: VANCOMYCIN 750 MG in NACL 0.9% 250 ML IV SCH ×2 (05:00→18:31)
[2020-06-04] MEDS: methylPREDNISolone SS 40 MG/ML VIAL IVP SCH ×3 (05:00→20:35)
[2020-06-04] MEDS: NACL 0.45% 1,000 ML IV SCH ×2 (06:04→19:00)
[2020-06-04] MEDS: BLOOD GLUCOSE MONITORING 1 DEV DEV FS SCH ×4 (06:06→20:29)
[2020-06-04] MEDS: glipiZIDE 5 MG TAB PO SCH ×2 (06:06→17:42)
--- NOTE | 2020-06-04 07:28 | NUR ---
REPORT GIVEN TO DAY SHIFT FOR CONTINUITY OF CARE.
--- NOTE | 2020-06-04 07:29 | NUR ---
RECEIVED BEDSIDE REPORT FROM POT TENDER NURSE TIAN RN, PT SEDATED RASS -3, DRY WEIGHT 48KG, PT ON ETT TO VENT ACPC FIO2 100%, PEEP 16, RATE 22. R UPPER ARM PICC, PATENT INTACT INFUSING VERSED @ 2MG/HR, FENTANYL @ 2MCG/KG/HR, AND LEVOPHED @ 8MCG/ MIN, INFUSING WELL, RFA 20 IV PATENT INTACT, INFUSING 1/2 NS @ 75ML/HR, INFUSING WELL, OGT IN PLACE, CONFIRMED PLACEMENT BY AUSCULTATION, BRODY CATH IN PLACE DRAINING TO GRAVITY. INITIAL ASSESSMENT DONE, ALL SAFETY PRECAUTION MET,CALL LIGHT WITHIN REACH, WILL CONTINUE TO MONITOR.
[2020-06-04] MEDS: NOREPINEPHRINE 4 MG in DEXTROSE 5% 250 ML IV PRN (08:34)
[2020-06-04] MEDS: metFORMIN 500 MG TAB PO SCH ×2 (08:46→17:42)
[2020-06-04] MEDS: ASCORBIC ACID 500 MG/5 ML ORASYR GT SCH ×2 (08:47→20:35)
[2020-06-04] MEDS: SODIUM PHOS / POTASSIUM PHOS 1 PKT PDR PO SCH ×2 (08:48→13:54)
[2020-06-04] MEDS: INSULIN LANTUS 100 UNITS/ML 10 ML VIAL SUBQ SCH (09:36)
[2020-06-04 09:48] LABS: HEMATOCRIT 35.3 % (36-48); HEMOGLOBIN 11.4 g/dL (12.0-16.0); MEAN CORPUSCULAR HEMOGLOBIN 32 pg (27-31); MEAN CORPUSCULAR HGB CONC 32 g/dL (33-37); MEAN CORPUSCULAR VOLUME 97.6 fL (80-94); PLATELET COUNT (AUTO) 289 K/uL (140-450); RED BLOOD CELL COUNT(AUTO) 3.62 MIL/uL (4.20-5.40); RED CELL DISTRIBUTION WIDTH 13.1 % (11.6-13.7)
[2020-06-04] MEDS: fentaNYL citrate - 50mL vial 2.5 MG in NACL 0.9% 200 ML IV PRN (09:51)
[2020-06-04 10:13] LABS: ANION GAP 7.5 (8-16); CARBON DIOXIDE 35.4 mmol/L (21-32); POTASSIUM 4.9 mmol/L (3.5-5.1)
[2020-06-04 10:14] LABS: CREATININE 0.8 mg/dL (0.6-1.3); TOTAL BILIRUBIN 0.5 mg/dL (0.0-1.0)
[2020-06-04 10:15] LABS: ALBUMIN 1.7 g/dL (3.4-5.0); PHOSPHORUS 7.2 mg/dL (2.5-4.9)
[2020-06-04 10:42] LABS: WHITE BLOOD COUNT (AUTO) 29.5 K/uL (4.8-10.8)
[2020-06-04 10:43] LABS: LYMPHOCYTES % (MANUAL) 1 % (20-46)
[2020-06-04] MEDS ORDERED: INSULIN LANTUS 100 UNITS/ML 10 ML VIAL SUBQ SCH (10:45)
--- NOTE | 2020-06-04 11:00 | NUR ---
PEEP REDUCED TO +12. SATURATIONS STABLE. DR. STEPHENS NOTIFIED AND ORDERED FURTHER TITRATION TO PEEP +10. PT SATURATION STABLE AT 98%. WILL CONTINUE TO MONITOR.
[2020-06-04] MEDS: ENOXAPARIN 60 MG/0.6 ML SYR SUBQ SCH ×2 (11:17→20:58)
--- NOTE | 2020-06-04 12:30 | NUR ---
DISCHARGE PLANNING: THIS IS A 59 Y/O FEMALE PATIENT FROM HOME, WHO CAME IN DUE TO HEADACHE, NAUSEA, VOMITING. PAST MEDICAL HISTORY INCLUDE DIABETES, MEDICATION NON COMPLIANCE. INITIAL DIAGNOSIS OF DKA. ORALLY INTUBATED TO VENT, FIO2 90%, PEEP 10, O2 SAT 98%. CURRENT LABS INCLUDE WBC 29.5, H/H 11.4/35.3, NA/K 140/4.9, BUN/CREA 19/0.8, D DIMER 1410. COVID PCR POSITIVE. ON ZOSYN, VANCO, SOLU MEDROL. SEDATED WITH FENTANYL AND VERSED. NPHRO, ID AND PULMO CONSULTS IN PLACE AD SEEN PATIENT. DC PLAN PENDING ON PATIENT'S RESPONSE TO TREATMENT. Addendum: 06/05/20 at 1353 by Maty Barreto SELF EXTUBATED 06/03/2020 AND LAZARO BLUE WAS CALLED. PATIENT REMAINS INTUBATED AND SEDATED, FIO2 90%, PEEP 10, O2 SAT 100%. SEEN BY PULMO - SO RIGGS DUE TO MILD HEMATURIA TODAY, CONTINUE VENT WEANING, PRONING. CXR FROM 06/04/2020 SHOWED WORSENING BILATERAL MULTILOBAR PNEUMONIA AND/OR ARDS. SEEN BY NEPHRO - MAY NEED TO START HD BY TOMORROW Addendum: 06/05/20 at 1455 by Maty Barreto CM RECEIVED A CALL FROM PATIENT'S DAUGHTER VANNESSA SEVILLA, REQUESTING MORE INFORMATION REGARDING MORTUARY ARRANGEMENTS WHEN HER MOTHER EXPIRES. SHE STATED THAT SHE HAVE BEEN RECEIVING CALLS THAT HER MOTHER'S CONDITION IS WORSENING. THE CALL ENVIRONMENTAL STUDIES PROFESSOR WAS VERY POOR AND I COULD HARDLY UNDERSTAND WHAT SHE WAS SAYING AND REQUESTED HER TO CALL ME BACK ONCE SHE IS NOT DRIVING ANYMORE. PROVIDED HER OF MY CONTACT INFO. WILL FOLLOW UP. Addendum: 06/11/20 at 1530 by Maty Barreto CM LATE ENTRY; SPOKE TO ALFIE AND CONFIRMED WITH HIM THAT THEY ARE NOT ABLE TO ACCEPT HOSPITAL PE. PER MIKY, [facility] IS ABLE TO ACCEPT HOSPITAL PE NOW HOWEVER HE COULD NOT GUARANTEE THAT PATIENT WILL BE ACCEPTED. HE STATED THAT DEPENDING ON THE PATIENT'S INSURANCE, BUT WITH HOSPITAL PE IT WILL BE IN THE BOTTOM OF THE REFERRAL. HE REQUESTED TO SEND THE REFERRAL FOR THEM TO REVIEW. INFORMED HIM TO CALL US BACK SOON POSSIBLE DUE TO PLAN OF TRACH AND PEG FOR THIS PATIENT. IN ALSO PROVIDED HIM OF THE VENT SETTINGS. WILL FOLLOW UP. DR. VICTORIA MADE AWARE. CONTACTED PATIENT'S DAUGHTER VANNESSA SEVILLA AT [phone] TO DISCUSS LTAC RECOMMENDATIONS AND IS IN AGREEMENT. ALL QUESTIONS AND CONCERNS ANSWERED. REQUESTED ADMITTING TO UPDATE CONTACT INFO FOR PATIENT'S DAUGHTER. REFERRAL SENT TO [facility]. WILL FOLLOW UP. Addendum: 06/17/20 at 1213 by Maty Barreto CM REMAINS INTUBATED AND SEDATED. FIO2 100%, PEEP 8, O2 SAT 90%. SEDATED WITH FENTANYL AND VERSED. ON FLUCONAZOLE, ROCEPHIN, SOLU MEDROL. FOR HD TODAY. Addendum: 06/18/20 at 1245 by Maty Barreto LATE ENTRY FOR 06/17/2020: RECEIVED A CALL FROM PATIENT'S DAUGHTER VANNESSA SEVILLA, PROVIDING ME WITH MEDICAL ID NUMBER [id number]. SHE ALSO REQUESTED IF SHE CAN SPEAK TO SW. INFORMED HER THAT SW STEPPED OUT FOR A MOMENT AND I WILL HAVE HIM TO CONTACT HER ONCE HE IS BACK. JORGE BROWN MADE AWARE. Addendum: 06/18/20 at 1249 by Maty Barreto REQUESTED MITCHELL CARCAMONURSING HOME PHYSICIAN TO RUN ELIGIBILITY WITH THE MEDICAL NUMBER PROVIDED. AT FIRST IT DID NOT SHOW ANY ELIGIBILITY HOWEVER, WHEN SHE RAN AGAIN IT SHOWED THAT IT IS STILL ACTIVE. PER MITCHELL ORTEGA UPDATE FACE SHEET. Addendum: 06/21/20 at 1626 by Maty Barreto LATE ENTRY: DR. CHIU CONTACTED PATIENT'S DAUGHTER VANNESSA SEVILLA REGARDING GOALS OF CARE. PER DR. CHIU, PATIENT'S DAUGHTER STILL WANTS EVERYTHING DONE. Addendum: 06/24/20 at 1148 by Maty Barreto REMAINS ORALLY INTUBATED TO VENT, FIO2 100%, PEEP 8, O2 SAT 76%. SEDATED WITH VERSED AND FENTANYL. ON LEVOPHED DRIP. BP 106/59. ON CEFEPIME, SOLU MEDROL, VANCOMYCIN. PER NEPHRO - DAILY HD CONDITION ALLOWS. PER PULMO - CONTINUE MECHANICAL VENTILATION. LATEST CXR SHOWED STABLE BILATERAL INFILTRATES, DECREASING SUBCUTANEOUS EMPHYSEMA.
--- NOTE | 2020-06-04 12:43 | NUR ---
SPOKE TO PT SISTER MS. SEVILLA TO UPDATE FAMILY REGARDING PT STATUS.
[2020-06-04] MEDS: SODIUM FERRIC GLUCONATE 125 MG in NACL 0.9% 100 ML IV SCH (12:51)
[2020-06-04] MEDS: INSULIN LISPRO SLIDING SCALE 100 UNITS/ML VIAL SUBQ PRN (13:23)
[2020-06-04] MEDS: MIDAZOLAM MDV 100 MG in NACL 0.9% 80 ML IV PRN (14:05)
--- NOTE | 2020-06-04 14:15 | NUR ---
NEW TUBE FEEDING RECOMMENDATIONS PROVIDED TO ROBER KRISHNAN FOR GLUCERNA 1.2 @ 70 ML/HR X 12 HOURS WITH PROSOURCE BID AND FLUSH OF 230 ML Q12HR. THIS WILL PROVIDE 840 ML OF VOLUME, 1128 KCAL AND 80 GM OF PROTEIN WHICH MEETS 83.5% OF KCAL NEEDS AND 100% OF PROTEIN NEEDS.
[2020-06-04] MEDS: NOREPINEPHRINE 16 MG in DEXTROSE 5% 250 ML IV PRN (16:18)
[2020-06-04] MEDS ORDERED: BUMETANIDE 1 MG/4 ML VIAL IV SCH (17:00)
--- NOTE | 2020-06-04 19:10 | NUR ---
ENDORSED PT TO NURSING EDUCATION CONSULTANT NURSE TIAN RICHTER FOR CONTINUOUS OF CARE.
--- NOTE | 2020-06-04 19:25 | NUR ---
RECEIVED REPORT FROM DAY NURSE, PT SEDATED RASS-3 FENTANYL DRIP @ 2 MCG/KG/HR, VERSED @ 2MG/HR. ETT TO VENT PC 100% FIO2 R 20 PEEP 10. + SUBCUT. EMPHYSEMA. SR 90S, ON LEVOPHED DRIP @ 8MCG/MIN. OGT IN PLACE, BRODY CATH IN PLACE, YELLOW URINE NOTED. SKIN INTACT, BLANCHABLE REDNESS TO BUTTOCKS AREA. PICC R UPPER ARM NOTED. BED LOCKED IN LOWEST POSITION, SAFETY PRECAUTIONS IN PLACE HOB> 30 DEGREES.
--- NOTE | 2020-06-04 19:51 | NUR ---
RECEIVED PATIENT FROM AM SHIFT. PATIENT WAS SEEN AND ASSESSED. FOUND PATIENT IN SUPINE POSITIONED. PATIENT IS INTUBATED WITH ETT SIZE 7.5 AND SECURED WITH ANCHOR-FAST AT 19cm. PATIENT IS ON VENT SETTINGS: AC/PC RR 20, PIP 22, PEEP 10, FiO2 100% WITH SPO2 OF 92%. VENT IS PLUGGED IN RED OUTLET. ALARMS SET AND AUDIBLE TO ENVIRONMENT. SUCTIONED SCANT AMOUNT OF CLEAR/WHITE SECRETIONS FROM ETT. AIRWAY IS PATENT. BREATH SOUNDS ON AUSCULTATION REVEALS BILATERAL RALES AT THE BASES AND CLEAR ON UPPER LOBES. PATIENT IS IN NO APPARENT RESPIRATORY DISTRESS AT THIS TIME. WILL CONTINUE TO MONITOR PATIENT.
--- NOTE | 2020-06-04 21:40 | NUR ---
PLACED PATIENT IN PRONE POSITION. PATIENT TOLERATED PROCEDURE WELL. SUCTION SMALL AMOUNT OF YELLOW THICK SECRETIONS FROM ETT. SPO2 94%. BILATERAL BREATH SOUNDS ON AUSCULTATION. PATIENT IS IN NO RESPIRATORY DISTRESS AT THIS TIME. RN AT BEDSIDE. WILL CONTINUE TO MONITOR PATIENT.
--- NOTE | 2020-06-04 21:41 | NUR ---
PT REPOSITIONED INTO PRONE POSITIONING WITH RT AND 2 RN @ BEDSIDE. HEAD AND BONY PROMINENCES ELEVATED OFF OF BED, ET TUBE FASTENED AND SECURED IN PLACE BY RT. BED PLACED IN REVERSE [place]. PT SUCTIONED, 100% SPO2, HR 121 BP 89/42 RR 22. CHG BATH GIVEN, LINEN CHANGED. WILL CONTINUE TO OBSERVE
[2020-06-05] VITALS (104 sets, daily range): BP systolic 88–120; BP diastolic 47–74
[2020-06-05] MEDS: Z-GUARD PASTE TP SCH ×2 (01:00→12:35)
--- NOTE | 2020-06-05 02:10 | NUR ---
REPOSITION PATIENT'S HEAD AND ARMS. PATIENT TOLERATED PROCEDURE WELL. BILATERAL BREATH SOUNDS ON AUSCULTATION. PATIENT IS IN NO RESPIRATORY DISTRESS AT THIS TIME. RN AT BEDSIDE. WILL CONTINUE TO MONITOR PATIENT.
--- NOTE | 2020-06-05 04:45 | NUR ---
PT SUCTIONED VAP ORAL CARE DONE; FLACC 0 RASS -3
[2020-06-05] MEDS: VANCOMYCIN 750 MG in NACL 0.9% 250 ML IV SCH (05:00)
[2020-06-05] MEDS: methylPREDNISolone SS 40 MG/ML VIAL IVP SCH ×3 (05:00→19:57)
[2020-06-05] MEDS: PIPERACILLIN/TAZOBACTAM 3.375 GM in DEXTROSE 5% 50 ML IV SCH ×3 (05:00→20:01)
[2020-06-05 06:23] LABS: HEMATOCRIT 33.4 % (36-48); HEMOGLOBIN 10.9 g/dL (12.0-16.0); MEAN CORPUSCULAR HEMOGLOBIN 32 pg (27-31); MEAN CORPUSCULAR HGB CONC 33 g/dL (33-37); MEAN CORPUSCULAR VOLUME 98.1 fL (80-94); PLATELET COUNT (AUTO) 188 K/uL (140-450); RED BLOOD CELL COUNT(AUTO) 3.41 MIL/uL (4.20-5.40); RED CELL DISTRIBUTION WIDTH 13.2 % (11.6-13.7); WHITE BLOOD COUNT (AUTO) 18.1 K/uL (4.8-10.8)
[2020-06-05 06:34] LABS: ANION GAP 7.9 (8-16); CARBON DIOXIDE 34.6 mmol/L (21-32); CREATININE 1.6 mg/dL (0.6-1.3); POTASSIUM 4.5 mmol/L (3.5-5.1)
[2020-06-05 06:42] LABS: MAGNESIUM 1.8 mg/dL (1.8-2.4); PHOSPHORUS 6.9 mg/dL (2.5-4.9)
--- NOTE | 2020-06-05 07:09 | NUR ---
REPORT GIVEN TO DAYSHIFT FOR CONTINUITY OF CARE.
--- NOTE | 2020-06-05 07:10 | NUR ---
RECEIVED BEDSIDE REPORT FROM LOGGING OPERATIONS INSPECTOR NURSE TIAN RN, PT SEDATED RASS -3, DRY WEIGHT 48KG. PT ON ETT TO VENT ACPC FIO2 100%, PEEP 10, RATE 22, NO SOB NOTED, PT ON PRONE POSITION. PICC LINE TO R UPPER ARM, PATENT INTACT, INFUSING FENTANYL @ 2.5MCG/KG/HR, VERSED @ 3MG/HR, AND 1/2 NS @ 75ML/HR, INFUSING WELL, IV TO R FA 20G PATENT INTACT, SL . OGT IN PLACE CLAMPED FOR PRONING, NO RESIDUAL NOTED, CONFIRMED PLACEMENT BY AUSCULTATION, INITIAL ASSESSMENT DONE, BRODY CATH IN PLACE, DRAINING TO GRAVITY, INITIAL ASSESSMENT DONE, ALL SAFETY PRECAUTION MET, CALL LIGHT WITHIN REACH, WILL CONTINUE TO MONITOR.
[2020-06-05] MEDS: glipiZIDE 5 MG TAB PO SCH ×2 (07:30→16:30)
[2020-06-05] MEDS: fentaNYL citrate - 50mL vial 2.5 MG in NACL 0.9% 200 ML IV PRN (07:33)
[2020-06-05] MEDS: BLOOD GLUCOSE MONITORING 1 DEV DEV FS SCH ×4 (07:35→20:41)
[2020-06-05] MEDS: CLINICAL MONITORING MC SCH (09:00)
[2020-06-05] MEDS: INSULIN LANTUS 100 UNITS/ML 10 ML VIAL SUBQ SCH (09:00)
[2020-06-05] MEDS: ASCORBIC ACID 500 MG/5 ML ORASYR GT SCH ×2 (09:45→20:00)
[2020-06-05] MEDS: ENOXAPARIN 60 MG/0.6 ML SYR SUBQ SCH ×2 (09:46→19:56)
--- NOTE | 2020-06-05 09:46 | NUR ---
DUE MEDICATIONS ADMINISTERED, PT TOLERATED WELL, BRODY CATH DONE, CHG BATH DONE, WILL CONTINUE TO MONITOR.
[2020-06-05] MEDS ORDERED: BUMETANIDE 1 MG/4 ML VIAL IV SCH (11:20)
[2020-06-05 11:55] LABS: LYMPHOCYTES % (MANUAL) 1 % (20-46); MONOCYTES % (MANUAL) 1 % (5-12)
[2020-06-05] MEDS: SODIUM FERRIC GLUCONATE 125 MG in NACL 0.9% 100 ML IV SCH (12:05)
--- NOTE | 2020-06-05 12:30 | NUR ---
DUE MEDICATIONS ADMINISTERED PT TOLERATED WELL, NO DISTRESS NOTED, WILL CONTINUE TO MONITOR.
[2020-06-05 13:39] LABS: APPEARANCE,URINE CLOUDY (CLEAR); BILIRUBIN,URINE NEGATIVE (NEGATIVE); BLOOD, URINE 3+ (NEGATIVE); COLOR,URINE RED (YELLOW); LEUKOCYTE ESTERASE ,URINE 2+ (NEGATIVE); PH,URINE 5.5 (5.0-9.0); UGLUCOSE NEGATIVE (NEGATIVE)
[2020-06-05 13:52] LABS: YEAST,URINE Moderate /HPF (None Seen)
[2020-06-05 13:53] LABS: RBC,URINE >100 /HPF (0-5)
[2020-06-05 13:55] LABS: NITRITE, URINE POSITIVE (NEGATIVE)
--- NOTE | 2020-06-05 14:20 | NUR ---
SUCCESSFULLY SUPINE PT, PT TOLERATED WELL, WILL CONTINUE TO MONITOR.
--- NOTE | 2020-06-05 15:00 | NUR ---
TUBE FEEDING STARTED @10ML/HR, PT TOLERATED WELL, WILL CONTINUE TO MONITOR.
--- NOTE | 2020-06-05 15:29 | NUR ---
PT. IS COVID POSITIVE AND CHANGE OF SHIRA SCALE TO HI RISK, PRESSURE INJURY PREVENTION INTERVENTIONS IN PLACE. -TURN AND REPOSITION PATIENT Q 2H -ASSESS AND MONITOR SKIN CONDITION DURING POSITION CHANGE -OFFLOAD BILATERAL HEELS BY PLACING PILLOWS UNDER CALVES AT ALL TIMES, UNLESS OTHERWISE CONTRAINDICATED -PRESSURE REDISTRIBUTION BY PLACING PILLOWS AND OFFLOADING SACRALCOCCYX -KEEP SKIN CLEAN AND DRY AT ALL TIMES. Addendum: 06/12/20 at 1434 by Dane Dietz RN (Grace) SKIN ALTERATION NOTED ON 06/04/2020 LEFT BUTTOCK OPEN BLISTER WITH PARTIAL THICKNESS SKIN LOSS 5X3X0.1CM JOAO WOUND PURPLE DISCOLORATION SKIN THIN AND EASILY TO TORN. FOAM DRESSING IN PLACE. 06/12/2020 RE-EVALUATION LEFT BUTTOCK EXTENDED TO LOWER SACRUM COVID RELATED SKIN FAILURE DUE TO TISSUE LESS TOLERATE TO PRESSURE, SHEARING AND POSSIBLE ASSOCIATED WITH MICROVASCULAR INJURY. PARTIAL THICKNESS SKIN LOSS 5X6X0.1CM WOUND BED IS MOIST 100% GRANULATING TISSUE, JOAO WOUND REDNESS /PURPLE DISCOLORATION EXTENDED TO RIGHT INNER BUTTOCKS AND LOWER SACRUM SKIN THIN AND EASILY TO TORN. POC DISCUSSED WITH PRIMARY RN AND DISCUSSED MEASUREMENT DISCREPANCY, PRIMARY RN SAW THE WOUND AND VERBALIZES UNDERSTANDING. RECOMMENDATIONS: ADD THERAHONEY TO LEFT BUTTOCK WOUND AND COVER WITH FOAM DRESSING, CONTINUE OFFLOADING
--- NOTE | 2020-06-05 16:14 | NUR ---
REC'D PT IN PRONE POSITION WITH ETT SECURE AND INTACT, PT ON CURRENT VENT SETTING, ALARMS AUDIBLE, VENT PLUGGED INTO RED OUTLET, PT CURRENT SUPINE WITH ETT SECURE AND INTACT, TITRATING FIO2 INDICATED,WILL CONTINUE TO MONITOR.
--- NOTE | 2020-06-05 19:47 | NUR ---
RECEIVED REPORT FROM DAY NURSE, PT SEDATED RASS-3 FENTANYL DRIP @ 2.5 MCG/KG/HR, VERSED @ 3MG/HR. ETT TO VENT PC 80% FIO2 R 20 PEEP 10. + SUBCUT. EMPHYSEMA. SR 90S, NO ECTOPY NOTED. OGT IN PLACE WITH FEEDINGS RUNNING. BRODY CATH IN PLACE, YELLOW URINE NOTED. SKIN INTACT, BLANCHABLE REDNESS TO BUTTOCKS AREA WOUND TO L BUTTOCKS CHEEK, OPTIFOAM CDI. PICC R UPPER ARM NOTED. BED LOCKED IN LOWEST POSITION, SAFETY PRECAUTIONS IN PLACE HOB> 30 DEGREES.
--- NOTE | 2020-06-05 20:16 | NUR ---
RECEIVED PATIENT FROM AM SHIFT. PATIENT WAS SEEN AND ASSESSED. FOUND PATIENT IN SUPINE POSITIONED. PATIENT IS INTUBATED WITH ETT SIZE 7.5 AND SECURED WITH ANCHOR-FAST AT 19cm. PATIENT IS ON VENT SETTINGS: AC/PC RR 20, PIP 22, PEEP 10, FiO2 80% WITH SPO2 OF 92%. VENT IS PLUGGED IN RED OUTLET. ALARMS SET AND AUDIBLE TO ENVIRONMENT. SUCTIONED SCANT AMOUNT OF CLEAR/WHITE SECRETIONS FROM ETT. AIRWAY IS PATENT. BREATH SOUNDS ON AUSCULTATION REVEALS BILATERAL RALES AT THE BASES AND CLEAR ON UPPER LOBES. PATIENT IS IN NO APPARENT RESPIRATORY DISTRESS AT THIS TIME. WILL CONTINUE TO MONITOR PATIENT.
--- NOTE | 2020-06-05 21:55 | NUR ---
PT PLACED PRONE; WITH RT AND RN @ BEDSIDE. CHG BATH GIVEN, LINEN CHANGED. PT TOLERATED POSITION CHANGE. RESTRAINTS LOOSENED AND REAPPLIED. NO SS OF ACUTE DISTRESS NOTED. FLACC 0. RASS-3. WILL CONTINUE TO OBSERVE.
--- NOTE | 2020-06-05 22:00 | NUR ---
PLACED PATIENT IN PRONE POSITION. PATIENT TOLERATED PROCEDURE WELL. SUCTION SCANT AMOUNT OF CLEAR/WHITE SECRETIONS FROM ETT. SPO2 93%. BILATERAL BREATH SOUNDS ON AUSCULTATION. PATIENT IS IN NO RESPIRATORY DISTRESS AT THIS TIME. RN AT BEDSIDE. WILL CONTINUE TO MONITOR PATIENT.
[2020-06-05 23:17] LABS: CHLORIDE,URINE RANDOM 94 mmol/L (110-250); CREATININE,URINE RANDOM 31 mg/dL (30-125); URINE SODIUM, RANDOM 69 mmol/l (40-220)
[2020-06-06] VITALS (101 sets, daily range): BP systolic 86–124; BP diastolic 27–75
[2020-06-06] MEDS: Z-GUARD PASTE TP SCH ×2 (00:05→13:07)
--- NOTE | 2020-06-06 00:12 | NUR ---
PT REPOSITIONED; FLACC 0, RASS-3. NO S/S OF ACUTE DISTRESS NOTED.
--- NOTE | 2020-06-06 02:50 | NUR ---
REPOSITION PATIENT'S HEAD, ARMS, AND ETT. PATIENT TOLERATED PROCEDURE WELL. BILATERAL BREATH SOUNDS ON AUSCULTATION. AIRWAY IS PATENT. PATIENT IS IN NO RESPIRATORY DISTRESS AT THIS TIME. RN AT BEDSIDE. WILL CONTINUE TO MONITOR PATIENT.
[2020-06-06] MEDS: MIDAZOLAM MDV 100 MG in NACL 0.9% 80 ML IV PRN (03:13)
[2020-06-06] MEDS: fentaNYL citrate - 50mL vial 2.5 MG in NACL 0.9% 200 ML IV PRN ×2 (04:22→21:39)
[2020-06-06] MEDS: methylPREDNISolone SS 40 MG/ML VIAL IVP SCH ×3 (04:22→21:30)
[2020-06-06] MEDS: PIPERACILLIN/TAZOBACTAM 3.375 GM in DEXTROSE 5% 50 ML IV SCH ×2 (04:23→13:06)
--- NOTE | 2020-06-06 04:30 | NUR ---
PT TURNED AND REPOSITIONED; FLACC 0. RASS -3.
[2020-06-06 04:58] LABS: BASOPHILS # (AUTO) 0.1 K/uL (0.00-0.22); BASOPHILS % (AUTO) 0.4 % (0.0-2.0); EOSINOPHILS % (AUTO) 0.1 % (0.0-4.0); HEMATOCRIT 31.6 % (36-48); HEMOGLOBIN 10.3 g/dL (12.0-16.0); LYMPHOCYTES # (AUTO) 0.3 K/uL (2.5-16.5); LYMPHOCYTES % (AUTO) 1.5 % (20.5-51.1); MEAN CORPUSCULAR HEMOGLOBIN 32 pg (27-31); MEAN CORPUSCULAR HGB CONC 33 g/dL (33-37); MEAN CORPUSCULAR VOLUME 97.2 fL (80-94); MONOCYTES % (AUTO) 0.1 % (1.7-9.3); NEUTROPHILS # (AUTO) 17.4 K/uL (1.8-7.7); NEUTROPHILS % (AUTO) 97.9 % (42.2-75.2); PLATELET COUNT (AUTO) 221 K/uL (140-450); RED BLOOD CELL COUNT(AUTO) 3.25 MIL/uL (4.20-5.40); RED CELL DISTRIBUTION WIDTH 12.8 % (11.6-13.7); WHITE BLOOD COUNT (AUTO) 17.8 K/uL (4.8-10.8)
[2020-06-06 05:27] LABS: ANION GAP 10.9 (8-16); CARBON DIOXIDE 30.8 mmol/L (21-32); CREATININE 2.3 mg/dL (0.6-1.3); POTASSIUM 3.7 mmol/L (3.5-5.1)
[2020-06-06 05:29] LABS: MAGNESIUM 1.6 mg/dL (1.8-2.4)
--- NOTE | 2020-06-06 06:39 | NUR ---
BS CHECKED 41; D 50 GIVEN. RECHECKED 236.
[2020-06-06] MEDS: BLOOD GLUCOSE MONITORING 1 DEV DEV FS SCH ×4 (06:47→21:30)
[2020-06-06] MEDS: glipiZIDE 5 MG TAB PO SCH ×2 (06:48→16:30)
[2020-06-06] MEDS: DEXTROSE 50% 50 ML SYR IVP PRN ×2 (06:49→16:46)
--- NOTE | 2020-06-06 07:30 | NUR ---
REPORT GIVEN TO DAY SHIFT RN FOR CONTINUITY OF CARE.
--- NOTE | 2020-06-06 07:35 | NUR ---
WINDOW-SIDE REPORT RECEIVED FROM DIRECTOR OF MATERNITY SERVICES NURSE. PT IN BED, PRONE POSITION. RASS -3, AROUSABLE TO LIGHT PAIN. ETT TO VENT ACPC FIO2 80%, RR 20, PEEP 10. BREATHING EVEN AND UNLABORED, NO SIGNS OF ACUTE DISTRESS NOTED. OG TUBE IN PLACE, FEEDING ON HOLD WHILE PATIENT PRONE. JUANY WRIST RESTRAINS IN PLACE, NO SIGNS OF INJURIES NOTED. BRODY CATHETER DRAINING TO GRAVITY, CLEAR YELLOW URINE. RASHARD PICC LINE, R WRIST 20 G CLEAN DRY INTACT, INFUSING 0.45% NS 5 ML/HR, MIDAZ[place]AM 3 MG/HR, FENTANYL 2.5 MCG/KG/HR. L BUTTOCKS OPEN WOUND. BED IN LOW POSITION, MESSAGING ARCHITECT IN PLACE, SAFETY MEASURES IN PLACE.
[2020-06-06] MEDS: INSULIN LANTUS 100 UNITS/ML 10 ML VIAL SUBQ SCH (09:00)
[2020-06-06] MEDS: ENOXAPARIN 60 MG/0.6 ML SYR SUBQ SCH (09:00)
[2020-06-06] MEDS: CLINICAL MONITORING MC SCH (09:00)
[2020-06-06] MEDS: ASCORBIC ACID 500 MG/5 ML ORASYR GT SCH ×2 (09:47→21:30)
--- NOTE | 2020-06-06 10:25 | NUR ---
MORNING MEDS ADMINISTERED PER MD ORDER. LOVENOX HELD DUE TO KIDNEY FUNCTION. BLOOD GLUCOSE CHECKED 54 AT 10:10, LANTUS HELD. ADMINISTERED D50 1 AMP IVP. BLOOD GLUCOSE RECHECKED AT 10:25, 128. OG TUBE RESIDUAL <5 ML, FLUSHED BEFORE AND AFTER MEDS. WILL NOTIFY MD OF MEDICATION INTERVENTIONS. MED EDUCATION PROVIDED, REINFORCEMENT NEEDED. RESTRAINTS REMOVED FOR ROM EXERCISES, NO SIGNS OF INJURY NOTED. ORAL CARE PROVIDED, HCG BATH PROVED, CHANGED ALL DIRTY LINEN, PT REPOSITIONED AND OFFLOADED PRESSURE WITH PILLOWS. CATHETER CARE PROVIDED. RISK CONSULTING TREASURY DIRECTOR IN PLACE. SAFETY MEASURES IN PLACE.
--- NOTE | 2020-06-06 12:05 | NUR ---
DR STEPHENS ROUNDING ON PT AT BEDSIDE.
--- NOTE | 2020-06-06 12:07 | NUR ---
BLOOD GLUCOSE CHECKED, 89, NO INSULIN COVERAGE NECESSARY.
--- NOTE | 2020-06-06 12:21 | NUR ---
DR KIMBROUGH AT BEDSIDE, CALLED DAUGHTER REGARDING DIALYSIS, CONSENT OBTAINED.
[2020-06-06] MEDS ORDERED: hePARIN / DEXT 5% PREMIX 250 ML IV SCH (12:25)
[2020-06-06] MEDS ORDERED: HEPARIN PER PHARMACY MC PRN (12:25)
[2020-06-06] MEDS: SODIUM FERRIC GLUCONATE 125 MG in NACL 0.9% 100 ML IV SCH (12:29)
--- NOTE | 2020-06-06 13:07 | NUR ---
ADMINISTERED SCHEDULED MEDS PER MD ORDER. MED EDUCATION PROVIDED, REINFORCEMENT NECESSARY. NO SIGNS OF ACUTE DISTRESS NOTED. BED IN LOW POSITION. NAIL FEEDER IN PLACE. SAFETY MEASURES IN PLACE.
--- NOTE | 2020-06-06 14:04 | NUR ---
PT SUPINED WITH RT ASSISTANCE. REPOSITIONED AND OFFLOADED PRESSURE WITH PILLOWS. PT TOLERATED WELL, BREATHING EVEN AND UNLABORED, NO SIGNS OF ACUTE DISTRESS NOTED. BED IN LOW POSITION, HOB 30 DEGREES. PARACHUTE HARNESS RIGGER IN PLACE. SAFETY MEASURES IN PLACE.
[2020-06-06 14:59] LABS: PROTHROMBIN TIME 10.7 secs (10.8-13.4)
--- NOTE | 2020-06-06 15:25 | NUR ---
06/06/20 RD FOLLOW UP COMPLETED PLEASE REFER TO NUTRITION ASSESSMENT UNDER CARE ACTIVITY FOR ESTIMATED NUTRITIONAL NEEDS. 1. RD RECOMMENDED NEPRO 1.8 @ 60 ML/HR X 8 HOURS WITH PROSOURCE TID DURING SUPINE POSITION -THIS WILL PROVIDE 1044 KCAL AND 83 GM OF PROTEIN WHICH MEETS 77% OF ESTIMATED KCAL NEEDS AND 100% OF ESTIMATED PROTEIN NEEDS. 2. RECOMMENDED FLUSH OF [address] TO FOLLOW-UP 2-3 DAYS, HIGH RISK SEBASTIÁN ZUNIGA, RD
[2020-06-06] MEDS: MAG SULF 2000 MG/WATER PREMIX 50 ML IV PRN (15:40)
--- NOTE | 2020-06-06 17:05 | NUR ---
BLOOD GLUCOSE CHECKED AT 1640, 37, 1 AMP D50 ADMINISTERED. BLOOD GLUCOSE RECHECKED AT 1700, 151. NO INSULIN COVERAGE ADMINISTERED TODAY. GLIPIZIDE HELD DUE TO LOW BLOOD GLUCOSE. WILL NOTIFY MD. MED EDUCATION PROVIDED, REINFORCEMENT NEEDED. G TUBE FEEDING RESUMED.
[2020-06-06] MEDS ORDERED: cefTRIAXone 2,000 MG in DEXTROSE 5% 100 ML IV SCH (18:10)
[2020-06-06] MEDS: LEVOFLOXACIN 750 MG/D5W PREMIX 150 ML IV SCH (18:30)
--- NOTE | 2020-06-06 18:34 | NUR ---
STARTED NEW BAG OF LEVOFLOXACIN. MED EDUCATION PROVIDED, REINFORCEMENT NEEDED.
--- NOTE | 2020-06-06 18:34 | NUR ---
DR BROWN AT BEDSIDE, INSERTING DIALYSIS ACCESS.
--- NOTE | 2020-06-06 19:05 | NUR ---
CXR DONE AT BEDSIDE TO CONFIRM HD CATH PLACEMENT, IMAGE REVIEWED BY LEATHA HUMPHREYS TO USE PER DR BROWN.
--- NOTE | 2020-06-06 19:10 | NUR ---
CALLED TO BEDSIDE DUE TO PT DESATURATING. SPO2 60s. AT BEDSIDE SPO2 GRADUALLY INCREASED TO 84% WITHOUT ANY INTERVENTIONS. PT ON 100% AND PEEP [id number]. WILL CONTINUE TO MONITOR PT.
--- NOTE | 2020-06-06 19:12 | NUR ---
RECEIVED PATIENT FROM AM SHIFT. PATIENT WAS SEEN AND ASSESSED. FOUND PATIENT IN SUPINE POSITIONED. PATIENT IS INTUBATED WITH ETT SIZE 7.5 AND SECURED WITH ANCHOR-FAST AT 19cm. PATIENT IS ON VENT SETTINGS: AC/PC RR 20, PIP 22, PEEP 10, FiO2 100% WITH SPO2 OF 84%. VENT IS PLUGGED IN RED OUTLET. ALARMS SET AND AUDIBLE TO ENVIRONMENT. SUCTIONED SCANT AMOUNT OF CLEAR/WHITE SECRETIONS FROM ETT. AIRWAY IS PATENT. BREATH SOUNDS ON AUSCULTATION REVEALS BILATERAL RALES AT THE BASES AND CLEAR ON UPPER LOBES. PATIENT IS IN NO APPARENT RESPIRATORY DISTRESS AT THIS TIME. WILL CONTINUE TO MONITOR PATIENT. PT RECEIVING DIALYSIS NOW
[2020-06-06] MEDS: hePARIN / DEXT 5% PREMIX 250 ML IV SCH (19:27)
--- NOTE | 2020-06-06 19:27 | NUR ---
HEPARIN DRIP STARTED PER ORDER 3500 UNITS BOLUS GIVEN, STARTING RATE 950UNITS/HR, DOUBLE NURSE VERIFIED WITH MYSELF AND BELL RN, PTT TO BE ORDERED IN 6HRS
[2020-06-06] MEDS: NOREPINEPHRINE 16 MG in DEXTROSE 5% 250 ML IV PRN (19:33)
--- NOTE | 2020-06-06 20:00 | NUR ---
RECEIVED REPORT FROM DAY SHIFT RN. DRY WEIGHT 48KG. RASS -3. ETT TO VENT. A/C PC. FIO2: 100%, RATE: 20, PEEP: 10. LUNG SOUNDS: CLEAR/DIMINISHED UPPER AND LOWER BILATERALLY. ST, S1S2 NOTED. LT IJ IN PLACE. RT UA PICC LINE PATENT, NO INFILTRATION/PHLEBITIS NOTED, RUNNING: FENTANYL 2.5 MCG/KG/MIN (12 ML/HR), VERSED 3MG/HR (3ML/HR), NS 0.45% @ 5ML/HR. RT WRIST 20g PERIPHERAL IV:PATENT, NO INFILTRATION/PHLEBITIS NOTED, RUNNING: HEPARIN 950 UNITS/HR (9.5ML/HR). BOWEL SOUNDS ACTIVE IN ALL 4 QUADRANTS. OG-TUBE TO FEED. RESIDUAL: 25ML FEEDING: NEPRO @ 60ML/HR, FWF: 380ML Q 12HR. BRODY IN PLACE, DRAINING TO GRAVITY. OPEN WOUND TO COCCYX AREA, OPTIFOAM IN PLACE. SKIN OTHERWISE INTACT. +3 PITTING EDEMA TO HANDS AND +2 PITTING EDEMA TO FEET. HEEL PROTECTORS IN PLACE. SAFETY MEASURES IN PLACE, BED LOW AND LOCKED. SIDE RAILS UP. CALL LIGHT WITHIN REACH. WILL CONTINUE TO MONITOR. Addendum: 06/07/20 at 0345 by Era Gamino RN RN RT UA PICC LINE ALSO RUNNING LEVOPHED (0.5 MCG/MIN)
--- NOTE | 2020-06-06 21:17 | NUR ---
DIALYSIS COMPLETED AT THIS TIME WITH 2 LITERS OUTPUT PER HD NURSE GRAHAM. WILL CONTINUE TO MONITOR PT.
[2020-06-06] MEDS: cefTRIAXone 2,000 MG in DEXTROSE 5% 100 ML IV SCH (21:30)
--- NOTE | 2020-06-06 21:50 | NUR ---
DR. BULLOCK CALLED BACK. DOCTOR WAS INFORMED THAT PIGMENT SUPPLIER WAS CALLED TO BEDSIDE DUE TO PT DESATURATING. SPO2 IN 60s. AT BEDSIDE, SPO2 GRADUALLY INCREASED TO 84 TO 86% WITHOUT ANY INTERVENTIONS. DOCTOR WAS ALSO INFORMED THAT AM SHIFT INCREASED PEEP FROM 8 TO [id number] DUE TO PT DESATURATING. PER DR BULLOCK, IF SPO2 DOES NOT IMPROVE WHEN PT DESATURATE, PIGMENT SUPPLIER CAN TITRATE PEEP UP TO 14 OR [id number] AND DECREASE SET PEAK INSPIRATORY PRESSURE TO OBTAIN PLATEAU PRESSURES LESS THAN 30 cmH20 DUE TO PT HAVING SUBCUTANEOUS EMPHYSEMA.
--- NOTE | 2020-06-06 23:00 | NUR ---
PLACED PATIENT IN PRONE POSITION. PATIENT TOLERATED PROCEDURE WELL. SUCTION SCANT AMOUNT OF YELLOW THICK SECRETIONS FROM ETT. SPO2 89%. BILATERAL BREATH SOUNDS ON AUSCULTATION. PATIENT IS IN NO RESPIRATORY DISTRESS AT THIS TIME. RN AT BEDSIDE. WILL CONTINUE TO MONITOR PATIENT.
--- NOTE | 2020-06-06 23:00 | NUR ---
PLACED PT IN PRONE POSITION, PT TOLERATED IT WELL. SAFETY MEASURES IN PLACE, WILL CONTINUE TO MONITOR.
[2020-06-07] VITALS (105 sets, daily range): BP systolic 60–124; BP diastolic 38–77
[2020-06-07] MEDS: Z-GUARD PASTE TP SCH ×2 (01:00→12:16)
[2020-06-07] MEDS: methylPREDNISolone SS 40 MG/ML VIAL IVP SCH ×3 (05:00→21:00)
[2020-06-07 05:41] LABS: MAGNESIUM 2.2 mg/dL (1.8-2.4); PHOSPHORUS 8.7 mg/dL (2.5-4.9)
[2020-06-07 05:55] LABS: ANION GAP 10.5 (8-16); CARBON DIOXIDE 32.2 mmol/L (21-32); CREATININE 2.5 mg/dL (0.6-1.3); POTASSIUM 4.7 mmol/L (3.5-5.1)
[2020-06-07 06:30] LABS: BASOPHILS % (AUTO) 0.3 % (0.0-2.0); HEMATOCRIT 32.4 % (36-48); HEMOGLOBIN 10.6 g/dL (12.0-16.0); LYMPHOCYTES # (AUTO) 0.1 K/uL (2.5-16.5); LYMPHOCYTES % (AUTO) 0.6 % (20.5-51.1); MEAN CORPUSCULAR HEMOGLOBIN 32 pg (27-31); MEAN CORPUSCULAR HGB CONC 33 g/dL (33-37); MEAN CORPUSCULAR VOLUME 98.8 fL (80-94); MONOCYTES % (AUTO) 0.2 % (1.7-9.3); NEUTROPHILS # (AUTO) 16.9 K/uL (1.8-7.7); NEUTROPHILS % (AUTO) 98.9 % (42.2-75.2); PLATELET COUNT (AUTO) 204 K/uL (140-450); RED BLOOD CELL COUNT(AUTO) 3.28 MIL/uL (4.20-5.40); RED CELL DISTRIBUTION WIDTH 13.5 % (11.6-13.7); WHITE BLOOD COUNT (AUTO) 17.1 K/uL (4.8-10.8)
--- NOTE | 2020-06-07 07:15 | NUR ---
RECEIVED HANDOFF FROM RN NEONATAL ICU RN. PT IS SEDATED RASS -3. PT IS ON ETT TO VENT ON ACPC, FIO2 100%, R 20, PEEP 10. PT IS ST ON THE MONITOR. PT IS OG TUBE WITH NEPRO RUNNING AT 60 ML/HR, WITH 380 ML FWF Q12HR. PT HAS ACCESS AT L IJ SMITA W PIGTAIL, RASHARD PICC, AND R WRIST 20 G. VERSED IS RUNNING AT 3 MG/HR, LEVO AT 60 MCG/MIN, FENTANYL AT 2.5 MCG/KG/HR, AND HEPARIN AT 790 UNIT/HR. DOSING WEIGHT IS 48 KG. PT HAS BRODY CATHETER IN PLACE. WILL CONTINUE TO MONITOR.
[2020-06-07] MEDS: BLOOD GLUCOSE MONITORING 1 DEV DEV FS SCH ×4 (07:30→21:00)
[2020-06-07] MEDS: CLINICAL MONITORING MC SCH (07:53)
[2020-06-07] MEDS: ASCORBIC ACID 500 MG/5 ML ORASYR GT SCH ×2 (08:08→21:00)
[2020-06-07] MEDS: glipiZIDE 5 MG TAB PO SCH ×2 (08:09→17:25)
[2020-06-07] MEDS: INSULIN LANTUS 100 UNITS/ML 10 ML VIAL SUBQ SCH (08:46)
[2020-06-07] MEDS: INSULIN LISPRO SLIDING SCALE 100 UNITS/ML VIAL SUBQ PRN ×2 (08:52→12:24)
--- NOTE | 2020-06-07 09:00 | NUR ---
MEDICATIONS ADMINISTERED PER ORDER. PT TOLERATED WELL. 10 ML RESIDUAL FROM OG TUBE. CHG BATH AND BRODY CARE PROVIDED. TEMPERATURE 97.1 AXILLARY. WILL CONTINUE TO MONITOR.
--- NOTE | 2020-06-07 09:45 | NUR ---
PAGED DR. MARY STEPHENS [phone] TO REVIEW ABG SAMPLE REPORT
--- NOTE | 2020-06-07 09:45 | NUR ---
REFERENCE PREVIOUS NOTE DR. STEPHENS CALL BACK NUMBER [phone]
--- NOTE | 2020-06-07 09:48 | NUR ---
CALL BACK FROM DR. MARY STEPHENS REVIEWED ABG SAMPLE REPORT NEW ORDER: TORBO INCREASE RATE TO 24 BPM DECREASE PEEP TO [id number]
--- NOTE | 2020-06-07 10:18 | NUR ---
PER TORJOSE STEPHENS INCREASED RATE TO 24 BPM DECREASED PEEP TO 8cmH2O NICOLA/RN NOTIFIED I/E RATIO 1:1.8 DECREASED I/TIME TO 0.70 TO MAINTAIN EXPIRATORY RATIO EQUAL/GREATER THAN 2.0
--- NOTE | 2020-06-07 12:40 | NUR ---
PT RETURNED TO SUPINE POSITION FOR HD. RT BIANCA AT BEDSIDE FOR ASSISTANCE. PT TOLERATED WELL. O2 SAT 96% NOW. VAP ORAL CARE PROVIDED. MEDICATIONS ADMINISTERED PER ORDER. TEMPERATURE 98.6 AXILLARY.
--- NOTE | 2020-06-07 15:15 | NUR ---
(LATE ENTRY) STABLE PRONE POSITION TOLERATING WELL GOOD CHEST RISE HEMODIALYSIS IN PROGRESS
--- NOTE | 2020-06-07 16:00 | NUR ---
DIALYSIS COMPLETE, 1300 ML REMOVED
[2020-06-07] MEDS: MIDAZOLAM MDV 100 MG in NACL 0.9% 80 ML IV PRN (16:14)
--- NOTE | 2020-06-07 17:00 | NUR ---
TEMPERATURE 97.1 AXILLARY. VAP ORAL CARE PROVIDED. BS 128 NO INSULIN COVERAGE NEEDED.
--- NOTE | 2020-06-07 17:04 | NUR ---
SEDATED STABLE EQUAL CHEST RISE SATURATION 100% ON FIO2 OF 100% PEEP 8cmH2O TITRATED FIO2 TO 90% KITCHEN CLERK TO NOTIFY RN
--- NOTE | 2020-06-07 18:30 | NUR ---
OUTPUT 50 ML OF URINE FROM CATHETER
--- NOTE | 2020-06-07 19:15 | NUR ---
HANDOFF GIVEN TO DIRECTOR CLINICAL PHARMACOLOGY RN FOR CONTINUITY OF CARE
[2020-06-07] MEDS: cefTRIAXone 2,000 MG in DEXTROSE 5% 100 ML IV SCH (20:00)
--- NOTE | 2020-06-07 20:00 | NUR ---
RECEIVED REPORT FROM DAY SHIFT RN. DRY WEIGHT 48KG. RASS -3. ETT TO VENT. A/C PC. FIO2: 80%, RATE: 28, PEEP: 8. LUNG SOUNDS: CLEAR. ST, S1S2 NOTED. LT IJ IN PLACE. RT UA PICC LINE PATENT, NO INFILTRATION/PHLEBITIS NOTED, RUNNING: FENTANYL 2.5 MCG/KG/MIN (12 ML/HR), VERSED 3MG/HR (3ML/HR), LEVOPHED 15.98 MCG/MIN (14.99 ML/HR), AND NS 0.45% @ 5ML/HR. RT WRIST 20g PERIPHERAL IV:PATENT, NO INFILTRATION/PHLEBITIS NOTED, RUNNING: HEPARIN 630 UNITS/HR. BOWEL SOUNDS ACTIVE IN ALL 4 QUADRANTS. OG-TUBE TO FEED. RESIDUAL: 10ML FEEDING: NEPRO @ 60ML/HR, FWF: 380ML Q 12HR. BRODY IN PLACE, DRAINING TO GRAVITY. OPEN WOUND TO LT BUTTOCKS/COCCYX AREA, OPTIFOAM IN PLACE. SKIN OTHERWISE INTACT. +3 PITTING EDEMA TO HANDS AND +2 PITTING EDEMA TO FEET. HEEL PROTECTORS IN PLACE. SAFETY MEASURES IN PLACE, BED LOW AND LOCKED. SIDE RAILS UP. CALL LIGHT WITHIN REACH. WILL CONTINUE TO MONITOR.
--- NOTE | 2020-06-07 20:27 | NUR ---
PAGED DR. LOYOLA. SPOKE TO CARDIO AUTOMOTIVE MANUFACTURER (DR. NOVA) ABOUT THE PT'S ECHO REPORT. STATED HE WILL BE HERE ON THE UNIT TOMORROW TO READ THE REPORT. DR. MÓNICA GO.
[2020-06-07] MEDS ORDERED: PIPERACILLIN/TAZOBACTAM 3.375 GM in DEXTROSE 5% 50 ML IV SCH (21:00)
--- NOTE | 2020-06-07 22:00 | NUR ---
PLACED PT IN PRONE POSITION, PT TOLERATED IT WELL. SAFETY MEASURES IN PLACE, WILL CONTINUE TO MONITOR. Addendum: 06/08/20 at 0649 by Era Gamino RN RN FEEDING HELD AT THIS TIME
[2020-06-07] MEDS ORDERED: PIPERACILLIN/TAZOBACTAM 3.375 GM VIAL IV ONE (22:33)
[2020-06-08] VITALS (104 sets, daily range): BP systolic 89–147; BP diastolic 54–80
--- NOTE | 2020-06-08 | NUR ---
SUCTIONED PATIENT, VAP ORAL CARE GIVEN. PT IS STILL IN PRONE POSITION, WILL CONTINUE TO MONITOR.
[2020-06-08] MEDS: Z-GUARD PASTE TP SCH ×2 (01:00→13:16)
--- NOTE | 2020-06-08 02:00 | NUR ---
NO S/S OF DISTRESS NOTED, PT IS IN PRONE/REVERSE [place] POSITION. SAFETY MEASURES IN PLACE, BED LOW AND LOCKED, SIDE RAILS UP, WILL CONT. TO MONITOR
[2020-06-08 02:20] LABS: HEMATOCRIT 26.8 % (36-48); HEMOGLOBIN 8.8 g/dL (12.0-16.0); LYMPHOCYTES # (AUTO) 0.4 K/uL (2.5-16.5); LYMPHOCYTES % (AUTO) 3.2 % (20.5-51.1); MEAN CORPUSCULAR HEMOGLOBIN 32 pg (27-31); MEAN CORPUSCULAR HGB CONC 33 g/dL (33-37); MEAN CORPUSCULAR VOLUME 96.6 fL (80-94); MONOCYTES % (AUTO) 0.1 % (1.7-9.3); NEUTROPHILS % (AUTO) 96.7 % (42.2-75.2); PLATELET COUNT (AUTO) 147 K/uL (140-450); RED BLOOD CELL COUNT(AUTO) 2.78 MIL/uL (4.20-5.40); RED CELL DISTRIBUTION WIDTH 13.2 % (11.6-13.7); WHITE BLOOD COUNT (AUTO) 12.4 K/uL (4.8-10.8)
[2020-06-08 02:30] LABS: ANION GAP 8.6 (8-16); CREATININE 2.6 mg/dL (0.6-1.3); POTASSIUM 3.6 mmol/L (3.5-5.1)
[2020-06-08 02:50] LABS: MAGNESIUM 1.8 mg/dL (1.8-2.4)
--- NOTE | 2020-06-08 04:00 | NUR ---
MORNING ROUTINE, SUCTIONED AND VAP ORAL CARE, BRODY CARE, CHG BATH. NO S/S OF DISTRESS NOTED. SAFETY MEASURES IN PLACE. WILL CONT. TO MONITOR.
[2020-06-08] MEDS: fentaNYL citrate - 50mL vial 2.5 MG in NACL 0.9% 200 ML IV PRN (04:24)
[2020-06-08] MEDS: NOREPINEPHRINE 16 MG in DEXTROSE 5% 250 ML IV PRN (04:25)
[2020-06-08] MEDS: hePARIN / DEXT 5% PREMIX 250 ML IV SCH (04:27)
--- NOTE | 2020-06-08 05:45 | NUR ---
CALLED LAB FOR APTT RESULT DRAWN @ 0214 THIS MORNING. RESULT STILL SHOWS PENDING AT THIS TIME.
--- NOTE | 2020-06-08 06:00 | NUR ---
APTT 39.4 RESULTED AT THIS TIME.
--- NOTE | 2020-06-08 06:15 | NUR ---
NO S/S OF DISTRESS NOTED. SAFETY MEASURES IN PLACE. BED LOW AND LOCKED, SIDE RAILS UP, PATIENT IN REVERSE [place]. CALL LIGHT WITHIN REACH. WILL CONTINUE TO MONITOR
--- NOTE | 2020-06-08 06:36 | NUR ---
SPOKE W/ DR MATUTE REGARDING CRITICAL ABG RESULTS ( PH 7.211 CO2 72.2 HCO3 28.3 BE -0.4 ) PER DR MATUTE TITRATE Pinsp TO 30 W/ REPEAT ABG IN 2H
[2020-06-08 07:09] LABS: HEPATITIS A ANTIBODY IGM Negative (Negative); HEPATITIS B CORE AB TOTAL Negative (Negative); HEPATITIS B SURFACE ANTIBODY Non Reactive (.); HEPATITIS B SURFACE ANTIGEN Negative (Negative)
--- NOTE | 2020-06-08 07:15 | NUR ---
RECEIVED ON A [employer] R860 VENTILATOR PLUGGED INTO RED OUTLET TOLERATING WELL WITHOUT ADVERSE REACTIONS NOTED TO AN ENDOTRACHEAL TUBE #7.5 SECURE AT 19cm TEETH/GUM LINE WITH AN ANCHOR FAST CUFF PRESSURE CHECKED NOTED AMBU BAG AT BEDSIDE LOC SEDATE RESTING WELL PRONE POSITION EQUAL CHEST RISE GOOD AERATION THROUGHOUT BILATERAL LUNG [place] AIRWAY PATENT PER TORBO DR. NATALY WORKMAN AND ABG SAMPLE REPORT INCREASED Pinsp TO [id number] ABG AFTER 2 HOURS OF VENTILATOR Pinsp CHANGE ENGLISH LANGUAGE LEARNER TUTOR TO NOTIFY PILI/RN Addendum: 06/08/20 at 0732 by Ortiz Medina RT CECY/ROBER NOTIFIED OF VENTILATOR CHANGE
--- NOTE | 2020-06-08 07:20 | NUR ---
RECEIVED PT REPORT, AT BEDSIDE, FOR CONTINUITY OF CARE. PT CONTINUES ON LEVOPHED TO MAINTAIN BP. SEDATED TO RASS -3, PER MD ORDERS. LT IJ SMITA FOR HD IN PLACE, RASHARD PICC PATENT, RT PERIPHERAL SALINE-LOCKED IV PATENT. DROPLET PRECAUTIONS MAINTAINED. HEPARIN DRIP IN PROGRESS WITH NO SIGNS OF ACTIVE BLEEDING NOTED. PT IN PRONE POSITION WITH SPO2 WNL. REMAINS ON ETT TO VENT. ALL SAFETY PRECAUTIONS IN PLACE WITH BED LOW AND LOCKED. HOB >30 DEGREES. WILL CONT TO MONITOR.
[2020-06-08] MEDS: glipiZIDE 5 MG TAB PO SCH ×2 (07:30→16:30)
--- NOTE | 2020-06-08 07:50 | NUR ---
DR ANGELA MONTGOMERY IN TO SEE PT. UPDATED ON PT STATUS.
[2020-06-08] MEDS: BLOOD GLUCOSE MONITORING 1 DEV DEV FS SCH ×4 (08:00→21:16)
--- NOTE | 2020-06-08 08:00 | NUR ---
RBS 108. GLIPIZIDE AND LANTUS HELD. FEEDING ON HOLD UNTIL 1400 TODAY D/T PT BEING IN PRONE POSITION. NO S/S OF HYPOGLYCEMIA NOTED. SAFETY PRECAUTIONS REMAIN IN PLACE WITH BED LOW AND LOCKED. WILL CONT TO MONITOR FOR CHANGES.
[2020-06-08] MEDS: methylPREDNISolone SS 40 MG/ML VIAL IVP SCH ×2 (09:00→21:16)
[2020-06-08] MEDS: CLINICAL MONITORING MC SCH (09:00)
[2020-06-08] MEDS: INSULIN LANTUS 100 UNITS/ML 10 ML VIAL SUBQ SCH ×2 (09:00→21:00)
--- NOTE | 2020-06-08 09:00 | NUR ---
PTT RESULTS 53.2. NO CHANGE IN HEPARIN DRIP, PER PROTOCOL. WILL CONT TO MONITOR
[2020-06-08] MEDS: ASCORBIC ACID 500 MG/5 ML ORASYR GT SCH ×2 (09:50→21:16)
--- NOTE | 2020-06-08 10:11 | NUR ---
06/08/20 RD FOLLOW UP COMPLETED PLEASE REFER TO NUTRITION ASSESSMENT UNDER CARE ACTIVITY FOR ESTIMATED NUTRITIONAL NEEDS. 1. CONTINUE NEPRO 1.8 @ 60 ML/HR X 8 HOURS WITH PROSOURCE TID DURING SUPINE POSITION -THIS WILL PROVIDE 1044 KCAL AND 83 GM OF PROTEIN WHICH MEETS 77% OF ESTIMATED KCAL NEEDS AND 100% OF ESTIMATED PROTEIN NEEDS. 2. RECOMMENDED FLUSH OF [address] TO FOLLOW-UP 2-3 DAYS, HIGH RISK SCAR GUZMAN RD
--- NOTE | 2020-06-08 10:20 | NUR ---
SEDATED STABLE PRONE POSITION EQUAL CHEST RISE GOOD AERATION THROUGHOUT BILATERAL LUNG MCMILLAN AIRWAY PATENT
--- NOTE | 2020-06-08 10:34 | NUR ---
[facility] SAMPLE REPORT PRESENTING WITH VENOUS RESULTS PREVIOUS SAMPLES WITH Po2 IN 90'S WORLD LANGUAGE TEACHER TO REDRAW
--- NOTE | 2020-06-08 10:58 | NUR ---
PAGED DR. NATALY WORKMAN [phone] TO REVIEW [facility] SAMPLE REPORT CALL BACK NUMBER [phone]
--- NOTE | 2020-06-08 11:01 | NUR ---
CALL BACK FROM DR. MARY STEPHENS REVIEWED [facility] SAMPLE REPORT AND DIAGNOSTIC MONITOR SATURATION OF 100% MD STATES "THAT'S FINE" MAKING ROUNDS NO NEW ORDERS
--- NOTE | 2020-06-08 11:56 | NUR ---
SEDATED PRONE POSITION NO DISTRESS NOTED EQUAL CHEST RISE ENDOTRACHEAL SUCTION FOR SCATTERED MODERATE THIN PALE YELLOW SECRETIONS AIRWAY PATENT SATURATION 100% ON FIO2 OF 100% PEEP 8cmH2O TITRATED FIO2 TO 95% CECY/RN NOTIFIED
--- NOTE | 2020-06-08 14:00 | NUR ---
CHANGED POSITION FROM PRONE TO SUPINE AT THIS TIME. PT DESATING DOWN TO 60'S. RT AT BEDSIDE.
--- NOTE | 2020-06-08 14:15 | NUR ---
Johana CHESTERP AND HENRIK CEDEÑOP AT BEDSIDE FOR ASSIST PATIENT SUCCESSFULLY PLACED IN SUPINE POSITION FOR HEMODIALYSIS PER Johana PERRIN SATURATION DESCENDING TO 87%
--- NOTE | 2020-06-08 14:25 | NUR ---
PROGRAM ATTENDANT CALLED TO BEDSIDE FOR DESCENDING SATURATION TO 70%-75% INCREASED FIO2 TO 100% HEMODIALYSIS AT BESIDE
--- NOTE | 2020-06-08 15:39 | NUR ---
STABLE SEDATED PRONE POSITION GOOD CHEST RISE HEMODIALYSIS IN PROGRESS
--- NOTE | 2020-06-08 17:41 | NUR ---
DIALYSIS DONE PULLED 2 LITERS PRONE POSITION STABLE GOOD CHEST RISE SATURATION 100% ON FIO2 OF 100% PEEP 8cmH2O TITRATED FIO2 TO 90% CECY/RN NOTIFIED
[2020-06-08] MEDS: INSULIN LISPRO SLIDING SCALE 100 UNITS/ML VIAL SUBQ PRN (17:51)
--- NOTE | 2020-06-08 18:56 | NUR ---
PER ARTURO IN LAB, THEY ARE HAVING "TROUBLE" AND WILL BE OVER TO DRAW 1600 PTT SOON.
--- NOTE | 2020-06-08 19:15 | NUR ---
ENDORSED PT TO NIGHTSHIFT RN FOR CONTINUITY OF CARE
--- NOTE | 2020-06-08 19:45 | NUR ---
RECEIVED REPORT FROM DAY SHIFT RN. PT IS SEDATED. RASS -3. DRY WEIGHT- 48 KG. SATURATION ABOVE 90'S. RESPIRATION EVEN AND UNLABORED. SYMMETRICAL CHEST EXPANSION. DIMINISHED UPON AUSCULTATION. ORAL MUCOSA PINK AND MOIST. SKIN WARM AND DRY, OPEN WOUND ON THE LEFT BUTTOCK OBSERVED, DRESSING CLEAN, DRY AND INTACT. PERIPHERAL ACCESS ON THE RIGHT WRIST , RIGHT UPPER ARM PICC AND LEFT IJ SMITA CATH WITH PIGTAIL. ALL LINES ASYMPTOMATIC, PATENT AND INTACT. PT ON HEPARIN DRIP @ 630 UNIT/HR, VERSED 3MG/HR, FENTANYL 2.5 MCG/KG/HR. OGT TO FEEDING, HOLD FEEDING WHEN PRONE. BRODY CATHETER IN PLACE DRAINING TO GRAVITY. SAFETY MEASURES IN PLACE. BED IN LOW AND LOCKED POSITION. ISOLATION PRECAUTION MAINTAINED. WILL CONTINUE TO MONITOR PT.
[2020-06-08] MEDS: LEVOFLOXACIN 750 MG/D5W PREMIX 150 ML IV SCH (20:00)
[2020-06-08] MEDS: cefTRIAXone 2,000 MG in DEXTROSE 5% 100 ML IV SCH (20:00)
--- NOTE | 2020-06-08 23:00 | NUR ---
PT PLACED IN PRONE POSITION. PT TOLERATED PROCEDURE WELL. NO DISTRESS NOTED. WILL CONTINUE TO MONITOR.
[2020-06-09] VITALS (107 sets, daily range): BP systolic 103–136; BP diastolic 56–77
[2020-06-09] MEDS: Z-GUARD PASTE TP SCH ×2 (00:46→13:11)
[2020-06-09] MEDS: MIDAZOLAM MDV 100 MG in NACL 0.9% 80 ML IV PRN ×2 (00:47→21:16)
[2020-06-09] MEDS: fentaNYL citrate - 50mL vial 2.5 MG in NACL 0.9% 200 ML IV PRN ×2 (01:00→21:14)
--- NOTE | 2020-06-09 02:04 | NUR ---
PT REMAINS IN PRONE POSITION. NO DISTRESS NOTED. SEDATED RASS -3.
--- NOTE | 2020-06-09 04:30 | NUR ---
PT HAD A BM. MORNING CARE PROVIDED. REMAINS IN PRONE POSITION. BRODY CARE, ORAL CARE JOAO CARE DONE. NO DISTRESS OBSERVED. WILL CONTINUE TO MONITOR PT.
[2020-06-09 06:21] LABS: BASOPHILS # (AUTO) 0.1 K/uL (0.00-0.22); BASOPHILS % (AUTO) 1.3 % (0.0-2.0); EOSINOPHILS % (AUTO) 0.1 % (0.0-4.0); HEMOGLOBIN 8.8 g/dL (12.0-16.0); LYMPHOCYTES # (AUTO) 0.1 K/uL (2.5-16.5); MEAN CORPUSCULAR HEMOGLOBIN 33 pg (27-31); MEAN CORPUSCULAR HGB CONC 34 g/dL (33-37); MEAN CORPUSCULAR VOLUME 96.1 fL (80-94); MONOCYTES % (AUTO) 0.2 % (1.7-9.3); NEUTROPHILS # (AUTO) 7.1 K/uL (1.8-7.7); PLATELET COUNT (AUTO) 96 K/uL (140-450); RED BLOOD CELL COUNT(AUTO) 2.71 MIL/uL (4.20-5.40); RED CELL DISTRIBUTION WIDTH 12.9 % (11.6-13.7); WHITE BLOOD COUNT (AUTO) 7.3 K/uL (4.8-10.8)
--- NOTE | 2020-06-09 07:20 | NUR ---
RECEIVED REPORT FORM RETAIL SALES ASSOCIATE BILINGUAL NURSE FOR CONTINUITY OF CARE. PT IN BED. RASS-3, FLACC 0, NO SOB, NO APPARENT DISTRESS. ETT TO VENT: AC/VC FIO2 95%% R 28 PEEP 8. ABD SOFT, NON-DISTENDED, NON-TENDER. WITH RASHARD PICC, RUNNING FENTANYL AT 2.5MCG, VERSED 3MG, HEPARIN 630U. WITH LEFT IJ DIALYSISS CATH. SKIN NOT INTACT. WITH BUTTOCK OPEN WOUND. BRODY INTACT AND PATENT DRAINING MINIMAL CLEAR YELLOW URINE. SAFETY PRECAUTIONS IN PLACE. ISOLATION PRECAUTION OBSERVED. WILL CONT TO MONITOR.
[2020-06-09 07:29] LABS: LYMPHOCYTES % (AUTO) 1.5 % (20.5-51.1); NEUTROPHILS % (AUTO) 96.9 % (42.2-75.2)
[2020-06-09] MEDS: BLOOD GLUCOSE MONITORING 1 DEV DEV FS SCH ×4 (07:30→20:28)
[2020-06-09] MEDS: glipiZIDE 5 MG TAB PO SCH ×2 (07:30→16:30)
[2020-06-09] MEDS: methylPREDNISolone SS 40 MG/ML VIAL IVP SCH ×2 (09:00→20:08)
[2020-06-09] MEDS: CLINICAL MONITORING MC SCH (09:00)
[2020-06-09] MEDS: ASCORBIC ACID 500 MG/5 ML ORASYR GT SCH ×2 (09:00→20:08)
[2020-06-09] MEDS: INSULIN LANTUS 100 UNITS/ML 10 ML VIAL SUBQ SCH (09:00)
[2020-06-09] MEDS: PANTOPRAZOLE 40 MG INJ VIAL IVP SCH (09:00)
--- NOTE | 2020-06-09 09:00 | NUR ---
HELD HEPARIN DRIP D/T LOW PLATELETS PER DR. STEPHENS
--- NOTE | 2020-06-09 09:30 | NUR ---
DUE MORNING MEDS GIVEN VIA OGT. TOLERATED WELL
--- NOTE | 2020-06-09 12:00 | NUR ---
IN PRONE POSITION. NO S/S OF DISTRESS, FLACC 0, RASS-3
--- NOTE | 2020-06-09 15:00 | NUR ---
PT PLACED IN SUPINE POSITION. PT TOLERATED PROCEDURE WELL. NO DISTRESS NOTED.
--- NOTE | 2020-06-09 17:00 | NUR ---
WITH LARGE LIQUID BM. PERICARE DONE. REPOSITIONED PT
[2020-06-09] MEDS: INSULIN LISPRO SLIDING SCALE 100 UNITS/ML VIAL SUBQ PRN ×2 (17:56→20:29)
--- NOTE | 2020-06-09 19:03 | NUR ---
RASS-3, NO S/S PF DISTRESS, ON AC/PC FIO2 100% O2SAT 88-90%
--- NOTE | 2020-06-09 19:30 | NUR ---
RECEIVED BEDSIDE REPORT FROM ROBER SARABIA. PT SEDATED RASS -3, DRY WEIGHT 48KG. PT ON ETT TO VENT AC PC FIO2 100%, PEEP 8 RATE 28, SATURATING @ 90%, NO SOB NOTED, EQUAL BILATERAL CHEST RISE, PICC LINE TO R UPPER ARM PATENT INTACT, INFUSING FENTANLY @ 2.5MCG/KG/HR, AND VERSED @ 4MG/HR, INFUSING WELL, PERIPHERAL IV TO R WRIST 20G PATENT INTACT, SL, LEFT IJ SMITA CATH, DRESSING CLEAN DRY AND INTACT. OGT IN PLACE WITH FEEDING NEPRO 60ML/H FWF 280 Q12H, PT TOLERATING WELL, RESIDUAL 60ML. BRODY CATH IN PLACE DRAINING TO GRAVITY. INITIAL ASSESSMENT DONE, ALL SAFETY PRECAUTION MET, CALL LIGHT WITHIN REACH, WILL CONTINUE TO MONITOR.
[2020-06-09] MEDS: cefTRIAXone 2,000 MG in DEXTROSE 5% 100 ML IV SCH (20:03)
--- NOTE | 2020-06-09 20:08 | NUR ---
DUE MEDICATIONS ADMINISTERED, PT TOLERATED WELL, PT DID A BM, CHANGED AND CLEAN PT, BRODY CARE DONE. PT TOLERATED WELL, WILL CONTINUE TO MONITOR.
--- NOTE | 2020-06-09 23:37 | NUR ---
received pt endorsement report from ROBER Branch. assumed pt care at this time. pt is GCS 3. sedated on RASS -3 with Fentanyl 2.5mcg/kg/hr and Midazolam 4mg/kg/hr. pt is ETT to vent with Pressure control of setting 100% FI02, 8 PEEP, Rate of 28. residential monitor states Sinus tachy. access of R upper arm PICC 2 lumen, R IJ for HD, R wrist 20g IV. noted hernandez cath with only 60cc output since 1899. pt has an OG tube with nepro feeding 60ml/hr w/ 380ml q12hr water flush.
[2020-06-10] VITALS (55 sets, daily range): BP systolic 88–133; BP diastolic 47–85
--- NOTE | 2020-06-10 00:10 | NUR ---
Pt proned at approximately 0010. saturations increased to 94%. no complications met. cleaning completed. chantal care performed.
[2020-06-10] MEDS: Z-GUARD PASTE TP SCH ×2 (01:30→13:14)
[2020-06-10 06:12] LABS: BASOPHILS # (AUTO) 0.1 K/uL (0.00-0.22); BASOPHILS % (AUTO) 0.7 % (0.0-2.0); HEMATOCRIT 27.7 % (36-48); HEMOGLOBIN 9.4 g/dL (12.0-16.0); LYMPHOCYTES # (AUTO) 0.1 K/uL (2.5-16.5); MEAN CORPUSCULAR HEMOGLOBIN 33 pg (27-31); MEAN CORPUSCULAR HGB CONC 34 g/dL (33-37); MEAN CORPUSCULAR VOLUME 95.9 fL (80-94); MONOCYTES % (AUTO) 0.2 % (1.7-9.3); NEUTROPHILS # (AUTO) 12.7 K/uL (1.8-7.7); NEUTROPHILS % (AUTO) 98.1 % (42.2-75.2); PLATELET COUNT (AUTO) 197 K/uL (140-450); RED BLOOD CELL COUNT(AUTO) 2.89 MIL/uL (4.20-5.40); RED CELL DISTRIBUTION WIDTH 13.2 % (11.6-13.7); WHITE BLOOD COUNT (AUTO) 12.9 K/uL (4.8-10.8)
[2020-06-10] MEDS: glipiZIDE 5 MG TAB PO SCH ×2 (07:30→16:30)
[2020-06-10] MEDS: BLOOD GLUCOSE MONITORING 1 DEV DEV FS SCH ×4 (07:30→20:10)
[2020-06-10 07:41] LABS: MAGNESIUM 1.9 mg/dL (1.8-2.4); PHOSPHORUS 8.7 mg/dL (2.5-4.9)
--- NOTE | 2020-06-10 08:08 | NUR ---
RECEIVED REPORT FORM PACKAGING SPECIALIST NURSE FOR CONTINUITY OF CARE. PT IN BED. RASS-3, FLACC 0, NO SOB, NO APPARENT DISTRESS. ETT TO VENT: AC/VC FIO2 100% R 28 PEEP 8. ABD SOFT, NON-DISTENDED, NON-TENDER. WITH RASHARD PICC, RUNNING FENTANYL AT 2.5MCG, VERSED 4MG. WITH LEFT IJ DIALYSISS CATH. SKIN NOT INTACT. WITH BUTTOCK OPEN WOUND. BRODY INTACT AND PATENT DRAINING MINIMAL CLEAR YELLOW URINE. SAFETY PRECAUTIONS IN PLACE. ISOLATION PRECAUTION OBSERVED. WILL CONT TO MONITOR.
--- NOTE | 2020-06-10 08:34 | NUR ---
RECEIVED ON A [employer] R860 VENTILATOR PLUGGED INTO RED OUTLET TOLERATING WELL WITHOUT ADVERSE REACTIONS NOTED TO AN ENDOTRACHEAL TUBE #7.5 SECURED AT 19cm TEETH/GUM LINE WITH AN ANCHOR FAST AMBU BAG AT BEDSIDE LOC SEDATED RESTING COMFORTABLY EQUAL CHEST RISE ENDOTRACHEAL SUCTION FOR SMALL THIN PALE YELLOW SECRETIONS AIRWAY PATENT
[2020-06-10] MEDS: ASCORBIC ACID 500 MG/5 ML ORASYR GT SCH ×2 (09:00→19:59)
[2020-06-10] MEDS: CLINICAL MONITORING MC SCH (09:00)
[2020-06-10] MEDS: methylPREDNISolone SS 40 MG/ML VIAL IVP SCH ×2 (09:00→19:59)
[2020-06-10] MEDS: PANTOPRAZOLE 40 MG INJ VIAL IVP SCH (09:00)
[2020-06-10] MEDS: INSULIN LANTUS 100 UNITS/ML 10 ML VIAL SUBQ SCH (09:00)
--- NOTE | 2020-06-10 11:24 | NUR ---
PRONE POSITION STABLE NO DISTRESS NOTED GOOD CHEST RISE AND AERATION THROUGHOUT BILATERAL LUNG MCMILLAN AIRWAY SATURATION 93% ON FIO2 OF 100% PEEP 8cmH2O TITRATE FIO2 TO 95% CORNELL/RN NOTIFIED
--- NOTE | 2020-06-10 14:33 | NUR ---
PRONE POSITION NO DISTRESS NOTED EQUAL CHEST RISE GOOD AERATION THROUGHOUT BILATERAL LUNG MCMILLAN AIRWAY PATENT Addendum: 06/10/20 at 1439 by Ortiz Medina RT SATURATION 95% ON FIO2 OF 95% PEEP 8cmH2O TITRATED FIO2 TO 90% CORNELL/ROBER NOTIFIED
--- NOTE | 2020-06-10 16:46 | NUR ---
PT PLACED IN SUPINE POSITION. PT TOLERATED PROCEDURE WELL. NO DISTRESS NOTED.
[2020-06-10] MEDS ORDERED: fentaNYL citrate 1 MG in NACL 0.9% 80 ML IV PRN (16:50)
--- NOTE | 2020-06-10 17:51 | NUR ---
SEDATED SUPINE POSITION TOLERATING WELL WITHOUT ADVERSE REACTIONS NOTED GOOD CHEST RISE NO SUCTIONING AT THIS TIME AIRWAY PATENT
[2020-06-10] MEDS: LEVOFLOXACIN 750 MG/D5W PREMIX 150 ML IV SCH (18:06)
--- NOTE | 2020-06-10 19:00 | NUR ---
RECIEVED REPORT FROM DAY SHIFT ROBER SARABIA. ASSUMED PT CARE AT THIS TIME. pt sedated to RASS -3. ETT to vent AC PC 100% FI02, 28 rate, 8 PEEP .
[2020-06-10] MEDS ORDERED: ALTEPLASE 2 MG VIAL MC SCH (19:15)
[2020-06-10] MEDS ORDERED: ALTEPLASE 2 MG VIAL MC PRN (19:30)
--- NOTE | 2020-06-10 19:34 | NUR ---
RECIEVED PT ON PC 30 +8 f 28 90% 7.5 ETT SECURED @ 19CM VENT PLUGGED INTO REDOUTLET AMBU @ BEDSIDE PT CURRENTLY RECEIVING HD PT DESAT LOW 80s FIO2 TITRATED 100% WILL CONTINUE TO MONITOR
[2020-06-10] MEDS: fentaNYL citrate 1 MG in NACL 0.9% 80 ML IV PRN (19:36)
[2020-06-10] MEDS ORDERED: ALTEPLASE 2 MG VIAL MC ONE (19:51)
[2020-06-10] MEDS: cefTRIAXone 2,000 MG in DEXTROSE 5% 100 ML IV SCH (19:53)
[2020-06-10] MEDS: INSULIN LISPRO SLIDING SCALE 100 UNITS/ML VIAL SUBQ PRN (20:13)
[2020-06-11] VITALS (67 sets, daily range): BP systolic 90–124; BP diastolic 48–73
[2020-06-11] MEDS: Z-GUARD PASTE TP SCH ×2 (01:50→13:00)
--- NOTE | 2020-06-11 02:20 | NUR ---
Pt placed on prone position accompanied by RT and another RN. no complications met. pt tolerated well. saturations increased from 89% to 99%.
[2020-06-11] MEDS: MIDAZOLAM MDV 100 MG in NACL 0.9% 80 ML IV PRN (02:44)
[2020-06-11 06:45] LABS: BASOPHILS % (AUTO) 0.4 % (0.0-2.0); EOSINOPHILS % (AUTO) 0.3 % (0.0-4.0); HEMATOCRIT 26.4 % (36-48); HEMOGLOBIN 8.8 g/dL (12.0-16.0); LYMPHOCYTES # (AUTO) 0.2 K/uL (2.5-16.5); LYMPHOCYTES % (AUTO) 1.5 % (20.5-51.1); MEAN CORPUSCULAR HEMOGLOBIN 32 pg (27-31); MEAN CORPUSCULAR HGB CONC 33 g/dL (33-37); MEAN CORPUSCULAR VOLUME 96.1 fL (80-94); MONOCYTES # (AUTO) 0.3 K/uL (0.8-1.0); MONOCYTES % (AUTO) 2.5 % (1.7-9.3); NEUTROPHILS # (AUTO) 9.8 K/uL (1.8-7.7); NEUTROPHILS % (AUTO) 95.3 % (42.2-75.2); PLATELET COUNT (AUTO) 180 K/uL (140-450); RED BLOOD CELL COUNT(AUTO) 2.74 MIL/uL (4.20-5.40); RED CELL DISTRIBUTION WIDTH 13.1 % (11.6-13.7); WHITE BLOOD COUNT (AUTO) 10.3 K/uL (4.8-10.8)
[2020-06-11] MEDS: BLOOD GLUCOSE MONITORING 1 DEV DEV FS SCH ×4 (07:30→21:19)
[2020-06-11 07:37] LABS: ANION GAP 12.2 (8-16); CARBON DIOXIDE 28.2 mmol/L (21-32); CREATININE 3.6 mg/dL (0.6-1.3); POTASSIUM 3.4 mmol/L (3.5-5.1)
--- NOTE | 2020-06-11 07:45 | NUR ---
RECEIVED ON A [employer]APE R860 VENTILATOR PLUGGED INTO RED OUTLET TOLERATING WELL WITHOUT ADVERSE REACTIONS NOTED TO AN ENDOTRACHEAL TUBE #7.5 SECURED TA 19cm TEETH/GUM LINE WITH AN ANCHOR FAST AMBU BAG NOTED AT BEDSIDE LOC SEDATED STABLE GOOD CHEST RISE ENDOTRACHEAL SUCTION FOR SCANT THIN PALE YELLOW SECRETIONS AIRWAY PATENT SATURATION 100% ON FIO2 OF 100% PEEP 8cmH2O TITRATED FIO2 TO 95% [employer] FORCES MEDICAL SERGEANT TO NOTIFY DAY/RN
--- NOTE | 2020-06-11 07:58 | NUR ---
Patient was admitted with DKA dn COVID 19 PNA.AND ACUTE RESP FAILURE. SHE WAS INTUBATED WITH ETT :7.5 & LL =21. . VENT SEETIN FI02; RATE=28, PEEP=8 . She has ogtube , runnig with NEPRO at60 ml/h ; and 380 h20 q12. She has fentanyl @ 2.5mcg/kg/h & Versed @4 mg/h. she was proned at midnight and now she is saturating at 99% -100%. HEPARIN DRIP was held yesterday morning and PTT=27.4. We continue to provide care
[2020-06-11] MEDS: glipiZIDE 5 MG TAB PO SCH ×2 (09:04→16:31)
[2020-06-11] MEDS: methylPREDNISolone SS 40 MG/ML VIAL IVP SCH ×2 (09:07→20:48)
[2020-06-11] MEDS: PANTOPRAZOLE 40 MG INJ VIAL IVP SCH (09:07)
[2020-06-11] MEDS: ASCORBIC ACID 500 MG/5 ML ORASYR GT SCH ×2 (09:07→20:48)
[2020-06-11] MEDS: INSULIN LANTUS 100 UNITS/ML 10 ML VIAL SUBQ SCH (09:10)
[2020-06-11] MEDS: CLINICAL MONITORING MC SCH (09:14)
[2020-06-11] MEDS: hePARIN / DEXT 5% PREMIX 250 ML IV SCH (09:15)
[2020-06-11] MEDS: INSULIN LISPRO SLIDING SCALE 100 UNITS/ML VIAL SUBQ PRN ×4 (09:17→21:20)
--- NOTE | 2020-06-11 10:03 | NUR ---
PRONE POSITION TOLERATING WELL WITHOUT COMPLICATIONS EQUAL CHEST RISE AIRWAY PATENT SATURATION 99% ON AN FIO2 OF 95% PEEP 8cmH20 titrated fio2 to 90% CLARENCE/ROBER NOTIFIED
--- NOTE | 2020-06-11 13:55 | NUR ---
STABLE SEDATED REMAINS IN PRONE POSITION NO DISTRESS NOTED GOOD CHEST RISE AND AERATION THROUGHOUT BILATERAL LUNG MCMILLAN AIRWAY PATENT SATURATION 98% ON FIO2 OF 90% PEEP 8cmH2O TITRATED FIO2 TO 85% CLARENCE/ROBER NOTIFIED
[2020-06-11] MEDS: fentaNYL citrate 1 MG in NACL 0.9% 80 ML IV PRN (14:27)
--- NOTE | 2020-06-11 14:30 | NUR ---
06/11/20 RD FOLLOW UP COMPLETED PLEASE REFER TO NUTRITION ASSESSMENT UNDER CARE ACTIVITY FOR ESTIMATED NUTRITIONAL NEEDS. 1. CONTINUE NEPRO 1.8 @ 60 ML/HR X 8 HOURS WITH PROSOURCE TID DURING SUPINE POSITION -THIS WILL PROVIDE 1044 KCAL AND 83 GM OF PROTEIN WHICH MEETS 77% OF ESTIMATED KCAL NEEDS AND 100% OF ESTIMATED PROTEIN NEEDS. 2. RECOMMENDED FLUSH OF [address] TO FOLLOW-UP 2-3 DAYS, HIGH RISK SEBASTIÁN ZUNIGA, LORENZO
--- NOTE | 2020-06-11 15:41 | NUR ---
EQUAL CHEST RISE GOOD CHEST RISE AIRWAY PATENT SATURATION 97% ON FIO2 OF 85% PEEP 8cmH2O TITRATED FIO2 TO 80% CLARENCE/ROBER NOTIFIED
--- NOTE | 2020-06-11 19:02 | NUR ---
Pt was supined at 18:45 and vs are within [facility] . SHE IS SATURATING AT 92%. SHE HAS ONE BOWLE MOVEMENT AND URINE OUTPUT =300 CC . HEMODIALYSIS OUTPUT =2L. REPORT WAS GIVEN TO THE NEXT SHIFT.
--- NOTE | 2020-06-11 19:22 | NUR ---
recieved pt endorsement report from Marivel RICHTER. pt sedated to RASS -3. ETT to VENT with AC/PC 80% FI02, 28 rate, 8 PEEP.
--- NOTE | 2020-06-11 19:28 | NUR ---
RECEIVED PATIENT FROM AM SHIFT. PATIENT WAS SEEN AND ASSESSED. FOUND PATIENT IN SUPINE POSITIONED. PATIENT IS INTUBATED WITH ETT SIZE 7.5 AND SECURED WITH ANCHOR-FAST AT 19cm. PATIENT IS ON VENT SETTINGS: AC/PC RR 28, PIP 30, PEEP 8, FiO2 80% WITH SPO2 OF 92%. VENT IS PLUGGED IN RED OUTLET. ALARMS SET AND AUDIBLE TO ENVIRONMENT. SUCTIONED SCANT AMOUNT OF CLEAR/WHITE SECRETIONS FROM ETT. AIRWAY IS PATENT. BREATH SOUNDS ON AUSCULTATION REVEALS BILATERAL COARSE AT THE BASES AND COARSE ON UPPER LOBES. PATIENT IS IN NO APPARENT RESPIRATORY DISTRESS AT THIS TIME. WILL CONTINUE TO MONITOR PATIENT.
[2020-06-11] MEDS: cefTRIAXone 2,000 MG in DEXTROSE 5% 100 ML IV SCH (20:48)
--- NOTE | 2020-06-11 22:12 | NUR ---
observed saturations decreased to 79%. FI02 increased to 100%.
--- NOTE | 2020-06-11 22:14 | NUR ---
CALLED TO BEDSIDE DUE TO PT DESATURATING. TITRATED FiO2 FROM 80% TO 100% WITH SPO2 OF 92%. RN NOTIFIED. WILL CONTINUE TO MONITOR PT.
[2020-06-12] VITALS (56 sets, daily range): BP systolic 90–121; BP diastolic 48–71
[2020-06-12 00:56] LABS: APPEARANCE,URINE CLOUDY (CLEAR); BILIRUBIN,URINE NEGATIVE (NEGATIVE); BLOOD, URINE 3+ (NEGATIVE); LEUKOCYTE ESTERASE ,URINE 3+ (NEGATIVE); NITRITE, URINE NEGATIVE (NEGATIVE); UGLUCOSE NEGATIVE (NEGATIVE)
--- NOTE | 2020-06-12 01:00 | NUR ---
LOW DOSE OF LEVOPHED STARTED TO SUPPORT BLOOD PRESSURE.AFTER DIALYSING PATIENT SATURATION IMPROVED.DR STEPHENS ORDERED TO PRONE PATIENT IF O2 SAT IS GREATER THAN 70.
[2020-06-12] MEDS: Z-GUARD PASTE TP SCH ×2 (01:05→12:51)
[2020-06-12 01:06] LABS: COLOR,URINE SLIGHT BLOODY (YELLOW)
[2020-06-12 01:18] LABS: RBC,URINE 20-50 /HPF (0-5); WBC,URINE 20-60 /HPF (0-5); YEAST,URINE Many /HPF (None Seen)
[2020-06-12] MEDS ORDERED: MIDAZOLAM MDV 50 MG/10 ML VIAL IV ONE (01:18)
[2020-06-12] MEDS: MIDAZOLAM MDV 100 MG in NACL 0.9% 80 ML IV PRN (01:55)
--- NOTE | 2020-06-12 02:15 | NUR ---
PATIENT WAS PRONED .
--- NOTE | 2020-06-12 02:30 | NUR ---
pt positioned to prone. tolerated well. no complications met. pt 02 sats holding well at 96-99%.
--- NOTE | 2020-06-12 02:30 | NUR ---
AT BEDSIDE AND PT WAS DESATURATING IN 70s. PT WAS PLACED IN PRONE POSITION. PATIENT TOLERATED PROCEDURE WELL. SUCTION SCANT AMOUNT OF YELLOW THICK SECRETIONS FROM ETT. SPO2 90%. BILATERAL BREATH SOUNDS ON AUSCULTATION. PATIENT IS IN NO RESPIRATORY DISTRESS AT THIS TIME. RN AT BEDSIDE. WILL CONTINUE TO MONITOR PATIENT.
[2020-06-12 06:07] LABS: HEMATOCRIT 24.7 % (36-48); HEMOGLOBIN 8.3 g/dL (12.0-16.0); MEAN CORPUSCULAR HEMOGLOBIN 33 pg (27-31); MEAN CORPUSCULAR HGB CONC 34 g/dL (33-37); MEAN CORPUSCULAR VOLUME 96.2 fL (80-94); PLATELET COUNT (AUTO) 169 K/uL (140-450); RED BLOOD CELL COUNT(AUTO) 2.56 MIL/uL (4.20-5.40); RED CELL DISTRIBUTION WIDTH 13.5 % (11.6-13.7); WHITE BLOOD COUNT (AUTO) 12.4 K/uL (4.8-10.8)
[2020-06-12 06:11] LABS: CARBON DIOXIDE 28.6 mmol/L (21-32); CREATININE 3.2 mg/dL (0.6-1.3); POTASSIUM 3.6 mmol/L (3.5-5.1)
[2020-06-12] MEDS: BLOOD GLUCOSE MONITORING 1 DEV DEV FS SCH ×4 (07:04→21:00)
[2020-06-12] MEDS: INSULIN LISPRO SLIDING SCALE 100 UNITS/ML VIAL SUBQ PRN ×3 (07:05→23:01)
[2020-06-12 07:20] LABS: LYMPHOCYTES % (MANUAL) 4 % (20-46); MONOCYTES % (MANUAL) 4 % (5-12)
[2020-06-12] MEDS: fentaNYL citrate 1 MG in NACL 0.9% 80 ML IV PRN ×2 (07:40→20:43)
[2020-06-12] MEDS: glipiZIDE 5 MG TAB PO SCH ×2 (07:50→17:36)
--- NOTE | 2020-06-12 08:15 | NUR ---
Report from the night nurse has stated that patient was proned at 2:30 am in the morning when her saturation is dropping at 88%. The remaining vital signs are stable. she has one bowel movement and oliguria with 150 urine output. we will continue to care for this patient.
[2020-06-12] MEDS: ASCORBIC ACID 500 MG/5 ML ORASYR GT SCH ×2 (09:12→22:30)
[2020-06-12] MEDS: PANTOPRAZOLE 40 MG INJ VIAL IVP SCH (09:12)
[2020-06-12] MEDS: methylPREDNISolone SS 40 MG/ML VIAL IVP SCH ×2 (09:12→21:00)
[2020-06-12] MEDS: INSULIN LANTUS 100 UNITS/ML 10 ML VIAL SUBQ SCH (09:30)
[2020-06-12] MEDS: CLINICAL MONITORING MC SCH (09:36)
[2020-06-12] MEDS ORDERED: hePARIN / DEXT 5% PREMIX 250 ML IV SCH ×2 (13:55→14:15)
[2020-06-12] MEDS ORDERED: HEPARIN PER PHARMACY MC PRN (13:55)
[2020-06-12] MEDS: THERAHONEY GEL 42.5 GM TP SCH (15:03)
--- NOTE | 2020-06-12 18:00 | NUR ---
PT TURNED TO SUPINE POSITION, ETT SECURED AND PATENT.
[2020-06-12] MEDS: LEVOFLOXACIN 750 MG/D5W PREMIX 150 ML IV SCH (18:37)
--- NOTE | 2020-06-12 19:30 | NUR ---
3.RECEIVED PATIENT FROM DAY SHIFT ORALLY VENTED AND SEDATE WITH PVERSED,FENTANYL,PATIENT IS ON PAC/PC MODE AND ON 100%.PATIENT IS TACHYPNEIC ANDUSING HER ACCESSORY MUSCLES ,MONITOR IS SINUS TACH.HEPARIN DRIP IS INFUSING AT 1050 UNITS/HR/BRODY CATH IN PLACE BUT PATIENT IS OLIGURIC.
[2020-06-12] MEDS: cefTRIAXone 2,000 MG in DEXTROSE 5% 100 ML IV SCH (20:00)
--- NOTE | 2020-06-12 20:19 | NUR ---
RECEIVED PATIENT FROM AM SHIFT. PATIENT WAS SEEN AND ASSESSED. FOUND PATIENT IN SUPINE POSITIONED. PATIENT IS INTUBATED WITH ETT SIZE 7.5 AND SECURED WITH ANCHOR-FAST AT 19cm. PATIENT IS ON VENT SETTINGS: AC/PC RR 28, PIP 30, PEEP 8, FiO2 100% WITH SPO2 OF 98%. VENT IS PLUGGED IN RED OUTLET. ALARMS SET AND AUDIBLE TO ENVIRONMENT. SUCTIONED SCANT AMOUNT OF CLEAR/WHITE SECRETIONS FROM ETT. AIRWAY IS PATENT. BREATH SOUNDS ON AUSCULTATION REVEALS COARSE BILATERALLY. PATIENT IS IN NO APPARENT RESPIRATORY DISTRESS AT THIS TIME. WILL CONTINUE TO MONITOR PATIENT.
--- NOTE | 2020-06-12 23:00 | NUR ---
PATIENT STARTS TO DESATURATE IN THE LOW 90 RT AT BEDSIDE.MONITOR CLOSELY
--- NOTE | 2020-06-12 23:10 | NUR ---
DR. STEPHENS CALLED BACK. DOCTOR WAS INFORMED THAT PATIENT'S FiO2 HAS BEEN TITRATED TO 100% AND CURRENTLY ON PEEP OF 8 cmH20 AND HX OF SUBCUTANEOUS EMPHYSEMA. SPO2 70-80. PER KAT, INCREASE PEEP TO 10 cmH20. DOCTOR ALSO AGREED TO DECREASE INSPIRATORY PRESSURE TO 28 cmH20. PRONE WAS DISCUSSED AND DOCTOR WAS INFORMED THAT PATIENT IS ABOUT TO RECEIVE DIALYSIS. PER KAT, PRONE PT IMMEDIATELY AFTER DIALYSIS. CHANGES MADE SPO2 STILL NOT IMPROVING. 70-80S. ADEQUATE EXHALE VOLUMES. WILL CONTINUE TO MONITOR.
--- NOTE | 2020-06-12 23:55 | NUR ---
DIALYSIS NURSE START TO CONNECT PT FOR HEMODIALYSIS.PATIENT CONTINUE TO DESATURATE.RT AT BEDSIDE/VARUN RT NOTIFIED DR STEPHENS ABOUT PATIENT DETERIORATING CONDITION AND ORDERED TO STOP DIALYSIS.
[2020-06-13] VITALS (46 sets, daily range): BP systolic 89–165; BP diastolic 3–81
--- NOTE | 2020-06-13 00:45 | NUR ---
CALLED TO BEDSIDE DUE TO PT DESATURATING ON DIALYSIS. FiO2 100% AND PEEP OF 10 cmH20. PAGED DOCTOR YONY.
--- NOTE | 2020-06-13 00:50 | NUR ---
DR. STEPHENS CALLED BACK. DOCTOR WAS INFORMED THAT PATIENT'S DESATURATING 30-40% WHILE ON DIALYSIS. PER KAT, STOP DIALYSIS (FOREST ECOLOGY PROFESSOR GRAHAM WAS INFORMED), INCREASE PEEP AND DECREASE INSPIRATORY PRESSURE ADEQUATE EXHALE VOLUMES. PEEP INCREASED TO 14 cmH20 INSPIRATORY PRESSURE 24 cmH20 WITH EXHALE VOLUE OF 300 TO 500cc. CURRENT SPO2 55-60% WILL CONTINUE TO MONITOR.
[2020-06-13] MEDS: MIDAZOLAM MDV 100 MG in NACL 0.9% 80 ML IV PRN ×2 (01:00→22:00)
[2020-06-13] MEDS: Z-GUARD PASTE TP SCH ×2 (01:00→12:33)
--- NOTE | 2020-06-13 02:10 | NUR ---
GRADUALLY SPO2 IMPROVED TO 80%. PLACED PATIENT IN PRONE POSITION. PATIENT TOLERATED PROCEDURE WELL. SUCTION YELLOW AMOUNT OF YELLOW THICK SECRETIONS FROM ETT. SPO2 84%. BILATERAL BREATH SOUNDS ON AUSCULTATION. PATIENT IS IN NO RESPIRATORY DISTRESS AT THIS TIME. RN AT BEDSIDE. WILL CONTINUE TO MONITOR PATIENT.
[2020-06-13] MEDS: fentaNYL citrate 1 MG in NACL 0.9% 80 ML IV PRN ×2 (03:26→12:00)
--- NOTE | 2020-06-13 03:30 | NUR ---
LAB CALLED FOR CRITICAL PTT GREATER THAN 150.HEPARUN HELD FOR 1 HOUR AND RESUMED AT 990 UNITS/HR PER PROTOCO;
--- NOTE | 2020-06-13 05:00 | NUR ---
PATIENT HAD IMPROVEMENT OF O2 SATURATION WITH PRONING
[2020-06-13 07:19] LABS: HEMATOCRIT 29.7 % (36-48); HEMOGLOBIN 9.4 g/dL (12.0-16.0); MEAN CORPUSCULAR HEMOGLOBIN 32 pg (27-31); MEAN CORPUSCULAR HGB CONC 32 g/dL (33-37); MEAN CORPUSCULAR VOLUME 99.5 fL (80-94); PLATELET COUNT (AUTO) 262 K/uL (140-450); RED BLOOD CELL COUNT(AUTO) 2.98 MIL/uL (4.20-5.40); RED CELL DISTRIBUTION WIDTH 13.8 % (11.6-13.7)
[2020-06-13 08:02] LABS: ANION GAP 10.8 (8-16); CARBON DIOXIDE 30.7 mmol/L (21-32); CREATININE 3.9 mg/dL (0.6-1.3); POTASSIUM 4.5 mmol/L (3.5-5.1)
[2020-06-13] MEDS: BLOOD GLUCOSE MONITORING 1 DEV DEV FS SCH ×4 (08:12→21:00)
[2020-06-13] MEDS: glipiZIDE 5 MG TAB PO SCH ×2 (08:17→17:23)
[2020-06-13] MEDS: INSULIN LISPRO SLIDING SCALE 100 UNITS/ML VIAL SUBQ PRN ×3 (08:18→17:26)
[2020-06-13] MEDS: ASCORBIC ACID 500 MG/5 ML ORASYR GT SCH ×2 (09:30→21:00)
[2020-06-13] MEDS: PANTOPRAZOLE 40 MG INJ VIAL IVP SCH (09:30)
[2020-06-13] MEDS: methylPREDNISolone SS 40 MG/ML VIAL IVP SCH ×2 (09:30→21:00)
[2020-06-13] MEDS: INSULIN LANTUS 100 UNITS/ML 10 ML VIAL SUBQ SCH (09:33)
[2020-06-13 09:36] LABS: WHITE BLOOD COUNT (AUTO) 30.5 K/uL (4.8-10.8)
[2020-06-13 09:37] LABS: LYMPHOCYTES % (MANUAL) 2 % (20-46); MONOCYTES % (MANUAL) 3 % (5-12)
[2020-06-13] MEDS: CLINICAL MONITORING MC SCH (09:42)
--- NOTE | 2020-06-13 10:09 | NUR ---
Patient last PTT result was above 150. Based on protocol heparin drip should be held about 1 hour and then reduce the current dose to minus 160 units , and subsequently resume it. The current dose was 1050 units/h and now the dose is 990 units per hour . PTT level will be ordered the next hours. We will continue to monitor the patient and parameters
[2020-06-13] MEDS: THERAHONEY GEL 42.5 GM TP SCH (14:24)
[2020-06-13] MEDS ORDERED: SODIUM BICARBONATE 8.4% PFS 50 MEQ/50 ML SYR IVP SCH (14:30)
--- NOTE | 2020-06-13 14:39 | NUR ---
Patient's labs results indicated that the PTT level is above 150. Protocaol of Heparin drip will be followed up. HEPARIN drip was stopped for 1 hour as protocol and rate will be decreased at 160 units per hour from the current rate which is 990 units per hour.
--- NOTE | 2020-06-13 18:27 | NUR ---
Dr Renan VICTORIA WAS NOTIFIED ABOUT THE BLOODY URINE FROM THE BRODY CATHETER. ORDER WAS INITIATED TO IMMEDIATELY STOP THE HEPARIN DRIP. WE WILL CONTINUE TO MONITOR THE PATIENT
--- NOTE | 2020-06-13 19:51 | NUR ---
RECEIVED PATIENT FROM AM SHIFT. PATIENT WAS SEEN AND ASSESSED. FOUND PATIENT IN SUPINE POSITIONED. PATIENT IS INTUBATED WITH ETT SIZE 7.5 AND SECURED WITH ANCHOR-FAST AT 19cm. PATIENT IS ON VENT SETTINGS: AC/PC RR 30, PIP 27, PEEP 14, FiO2 100% WITH SPO2 OF 82%. RECEIVING DIALYSIS. VENT IS PLUGGED IN RED OUTLET. ALARMS SET AND AUDIBLE TO ENVIRONMENT. SUCTIONED SCANT AMOUNT OF CLEAR/WHITE SECRETIONS FROM ETT. AIRWAY IS PATENT. BREATH SOUNDS ON AUSCULTATION REVEALS COARSE BILATERALLY. PATIENT IS IN NO APPARENT RESPIRATORY DISTRESS AT THIS TIME. WILL CONTINUE TO MONITOR PATIENT.
[2020-06-13] MEDS: cefTRIAXone 2,000 MG in DEXTROSE 5% 100 ML IV SCH (20:00)
--- NOTE | 2020-06-13 20:00 | NUR ---
RECEIVED REPORT FROM DAY SHIFT RN. DRY WEIGHT 48KG. RASS -3. ETT TO VENT. A/C PC. FIO2: 100%, RATE: 30, PEEP: 14. LUNG SOUNDS: COARSE UPPER AND LOWER BILATERALLY. ST, S1S2 NOTED. LT IJ IN PLACE. RT UA PICC LINE PATENT, NO INFILTRATION/PHLEBITIS NOTED, RUNNING: FENTANYL 1.5 MCG/KG/MIN (7.2 ML/HR), VERSED 5MG/HR (5ML/HR), LEVOPHED 9.995 MCG/MIN (9.37 ML/HR), AND NS 0.45% @ 5ML/HR. RT WRIST 20g PERIPHERAL IV:PATENT, NO INFILTRATION/PHLEBITIS NOTED, SALINE LOCK. BOWEL SOUNDS ACTIVE IN ALL 4 QUADRANTS. OG-TUBE TO FEED. RESIDUAL: 0ML FEEDING: NEPRO @ 60ML/HR, FWF: 380ML Q 12HR. BRODY IN PLACE, DRAINING TO GRAVITY, YELLOW/RED COLOR NOTED. OPEN WOUND TO LT BUTTOCKS/COCCYX AREA, OPTIFOAM IN PLACE. SCATTERED BRUISUING TO UPPER EXTREMITIES, SKIN OTHERWISE INTACT. +2 PITTING EDEMA TO HANDS AND +3 PITTING EDEMA TO FEET. HEEL PROTECTORS IN PLACE. SAFETY MEASURES IN PLACE, BED LOW AND LOCKED. SIDE RAILS UP. CALL LIGHT WITHIN REACH. WILL CONTINUE TO MONITOR.
[2020-06-13] MEDS: NOREPINEPHRINE 16 MG in DEXTROSE 5% 250 ML IV PRN (20:31)
--- NOTE | 2020-06-13 21:00 | NUR ---
DIALYSIS COMPLETE. OUTPUT: 2L.
[2020-06-13] MEDS: FLUCONAZOLE 100 MG/NS PREMIX 50 ML IV SCH (22:00)
--- NOTE | 2020-06-13 22:00 | NUR ---
NO S/S OF DISTRESS NOTED. SAFETY MEASURES IN PLACE, BED LOW AND LOCKED, SIDE RAILS UP, WILL CONT. TO MONITOR
[2020-06-13] MEDS ORDERED: FLUCONAZOLE 200 MG/NS PREMIX 100 ML IV ONE (23:48)
[2020-06-14] VITALS (61 sets, daily range): BP systolic 95–168; BP diastolic 51–82
[2020-06-14] MEDS: Z-GUARD PASTE TP SCH ×2 (01:00→13:56)
--- NOTE | 2020-06-14 01:30 | NUR ---
PT IS PLACED IN PRONE POSITION/REVERSE [place]. NO S/S OF DISTRESS NOTED. SAFETY MEASURES IN PLACE. WILL CONTINUE TO ASSESS.
--- NOTE | 2020-06-14 01:40 | NUR ---
PLACED PATIENT IN PRONE POSITION. PATIENT TOLERATED PROCEDURE WELL. SUCTION YELLOW AMOUNT OF YELLOW THICK SECRETIONS FROM ETT. SPO2 91%. BILATERAL BREATH SOUNDS ON AUSCULTATION. PATIENT IS IN NO RESPIRATORY DISTRESS AT THIS TIME. RNs AT BEDSIDE. WILL CONTINUE TO MONITOR PATIENT.
[2020-06-14] MEDS: fentaNYL citrate - 50mL vial 2.5 MG in NACL 0.9% 200 ML IV PRN (03:25)
--- NOTE | 2020-06-14 04:00 | NUR ---
MORNING ROUTINE, SUCTIONED AND VAP ORAL CARE, BRODY CARE, CHG BATH. NO S/S OF DISTRESS NOTED. SAFETY MEASURES IN PLACE. WILL CONT. TO MONITOR.
--- NOTE | 2020-06-14 05:45 | NUR ---
PT IS STILL ON VENTILATOR SUPPORT. VENT PLUGGED IN RED OUTLET AND ALARMS SET AND FUNCTIONING. AIRWAY IS PATENT AND ETT IS SECURED WITH ANCHOR-FAST. PT IS IN NO RESPIRATORY DISTRESS AT THIS TIME. WILL CONTINUE TO MONITOR PT.
--- NOTE | 2020-06-14 06:00 | NUR ---
SUCTIONED PATIENT, VAP ORAL CARE GIVEN. PT IS STILL IN PRONE POSITION, SAFETY MEASURES IN PLACE: BED LOW AND LOCKED, SIDE RAILS UP. CALL LIGHT WITHIN REACH, WILL CONTINUE TO MONITOR.
[2020-06-14 06:42] LABS: CARBON DIOXIDE 28.9 mmol/L (21-32); CREATININE 3.4 mg/dL (0.6-1.3); POTASSIUM 3.9 mmol/L (3.5-5.1)
[2020-06-14 06:59] LABS: BASOPHILS # (AUTO) 0.2 K/uL (0.00-0.22); BASOPHILS % (AUTO) 0.9 % (0.0-2.0); EOSINOPHILS % (AUTO) 0.2 % (0.0-4.0); HEMATOCRIT 25.1 % (36-48); HEMOGLOBIN 8.3 g/dL (12.0-16.0); LYMPHOCYTES # (AUTO) 0.2 K/uL (2.5-16.5); MEAN CORPUSCULAR HEMOGLOBIN 32 pg (27-31); MEAN CORPUSCULAR HGB CONC 33 g/dL (33-37); MEAN CORPUSCULAR VOLUME 97.1 fL (80-94); MONOCYTES # (AUTO) 0.2 K/uL (0.8-1.0); MONOCYTES % (AUTO) 0.8 % (1.7-9.3); NEUTROPHILS # (AUTO) 18.8 K/uL (1.8-7.7); NEUTROPHILS % (AUTO) 97.1 % (42.2-75.2); PLATELET COUNT (AUTO) 156 K/uL (140-450); RED BLOOD CELL COUNT(AUTO) 2.59 MIL/uL (4.20-5.40); WHITE BLOOD COUNT (AUTO) 19.4 K/uL (4.8-10.8)
--- NOTE | 2020-06-14 07:30 | NUR ---
CORRECTION ETT 7.5 @21 TEETH/GUM.
--- NOTE | 2020-06-14 07:30 | NUR ---
RECEIVED INTUBATED PT WITH A 7.5 ETT SECURED @23 TEETH/GUM ON VENT. SETTINGS A/C PC Pinsp27, R30, PEEP 14 AND FIO2 TITRATED TO 90%. SPO2 99%. PT SUCTIONED OBTAINED MODERATE AMOUNT OF THICK YELLOW/BLOOD TINGED SECRETIONS, AIRWAY IS PATENT AND ETT IS SECURE WITH ANCHOR FAST DEVICE. PT IS IN PRONE POSITION AT THIS TIME TOLERATING WELL. VENT IS PLUGGED INTO A RED OUTLET WITH ALARMS ON AND FUNCTIONING. WILL CONTINUE TO MONITOR.
[2020-06-14] MEDS: BLOOD GLUCOSE MONITORING 1 DEV DEV FS SCH ×4 (07:48→21:00)
[2020-06-14] MEDS: INSULIN LISPRO SLIDING SCALE 100 UNITS/ML VIAL SUBQ PRN ×4 (07:52→21:00)
[2020-06-14] MEDS: glipiZIDE 5 MG TAB PO SCH ×2 (08:04→17:10)
[2020-06-14] MEDS: ALUMINUM HYDROXIDE 64 MG/ML BOTTLE PO SCH ×4 (08:04→20:00)
--- NOTE | 2020-06-14 08:12 | NUR ---
Reoprt form the night nurse indicated that hemodialysis was able to remove 2 liters out. the bleeding from the hernandez cath has been decreased but still a small coffee ground color of the urine. we continue to monitor this abrupt occurrence. Vent setting did not change drastically . it remains almost the same wuith FI02=90% & PEEP =14 chich is too high. Doctor Stacey made a round to examine the patient. no additional plan was suggested. care will be continue to perform.
[2020-06-14] MEDS: ASCORBIC ACID 500 MG/5 ML ORASYR GT SCH ×2 (09:07→21:00)
[2020-06-14] MEDS: methylPREDNISolone SS 40 MG/ML VIAL IVP SCH ×2 (09:07→21:00)
[2020-06-14] MEDS: PANTOPRAZOLE 40 MG INJ VIAL IVP SCH (09:07)
[2020-06-14] MEDS: INSULIN LANTUS 100 UNITS/ML 10 ML VIAL SUBQ SCH (09:08)
[2020-06-14] MEDS: CLINICAL MONITORING MC SCH (09:09)
--- NOTE | 2020-06-14 11:15 | NUR ---
PEEP DECREASED TO [id number] DUE TO PLATEAU PRESSURES REACHING HIGH [id number].
--- NOTE | 2020-06-14 12:40 | NUR ---
PT ON 100% FIO2 SPO2 92% WILL CONTINUE TO MONITOR.
--- NOTE | 2020-06-14 16:05 | NUR ---
PT SUPINE AT THIS TIME, TACHYPNEIC AT THIS TIME. ADEQUATE VT BEING DELIVERED. SPO2 90%. WILL CONTINUE TO MONITOR.
[2020-06-14] MEDS: THERAHONEY GEL 42.5 GM TP SCH (17:07)
[2020-06-14] MEDS: MIDAZOLAM MDV 100 MG in NACL 0.9% 80 ML IV PRN (17:45)
--- NOTE | 2020-06-14 17:58 | NUR ---
PT REMAINS ON DOCUMENTED VENT SETTINGS, NO DISTRESS AT THIS TIME. VENT ALARMS REMAIN ON AND FUNCTIONING. ETT IS SECURE WITH A PATENT AIRWAY.
[2020-06-14] MEDS ORDERED: FLUCONAZOLE 200 MG/NS PREMIX 100 ML IV ONE (19:58)
--- NOTE | 2020-06-14 20:00 | NUR ---
RECEIVED REPORT FROM DAY SHIFT RN. DRY WEIGHT 48KG. RASS -3. ETT TO VENT. A/C PC. FIO2: 100%, RATE: 30, PEEP: 12. LUNG SOUNDS: COARSE UPPER AND LOWER BILATERALLY. ST, S1S2 NOTED. LT IJ IN PLACE. RT UA PICC LINE PATENT, NO INFILTRATION/PHLEBITIS NOTED, RUNNING: FENTANYL 1 MCG/KG/MIN (4.8 ML/HR), VERSED 5MG/HR (5ML/HR), LEVOPHED 9.995 MCG/MIN (9.37 ML/HR), AND NS 0.45% @ 5ML/HR. RT WRIST 20g PERIPHERAL IV:PATENT, NO INFILTRATION/PHLEBITIS NOTED, SALINE LOCK. BOWEL SOUNDS ACTIVE IN ALL 4 QUADRANTS. OG-TUBE TO FEED. RESIDUAL: 0ML FEEDING: NEPRO @ 60ML/HR, FWF: 380ML Q 12HR. BRODY IN PLACE, DRAINING TO GRAVITY, DARK JAZMINE COLOR NOTED. OPEN WOUND TO LT BUTTOCKS/COCCYX AREA, OPTIFOAM IN PLACE. SCATTERED BRUISUING TO UPPER EXTREMITIES, SKIN OTHERWISE INTACT. +2 PITTING EDEMA TO HANDS AND +3 PITTING EDEMA TO FEET. HEEL PROTECTORS IN PLACE. SAFETY MEASURES IN PLACE, BED LOW AND LOCKED. SIDE RAILS UP. CALL LIGHT WITHIN REACH. WILL CONTINUE TO MONITOR.
[2020-06-14] MEDS: ACETAMINOPHEN 325 MG TAB PO PRN (20:30)
--- NOTE | 2020-06-14 20:30 | NUR ---
PATIENT'S TEMP WAS 100.8 F. REMOVED PATIENTS BLANKETS. ADMINISTERED TYLENOL PER MD ORDER.
[2020-06-14] MEDS: FLUCONAZOLE 100 MG/NS PREMIX 50 ML IV SCH (21:00)
--- NOTE | 2020-06-14 21:00 | NUR ---
DR. SALES ON THE UNIT. UPDATED ABOUT PTS CONDITION.
--- NOTE | 2020-06-14 21:00 | NUR ---
REASSESSED PATIENTS TEMP 99.3. WILL CONTINUE TO MONITOR.
--- NOTE | 2020-06-14 22:00 | NUR ---
PT IS AFEBRILE. NO S/S OF DISTRESS NOTED. SAFETY MEASURES IN PLACE, BED LOW AND LOCKED, SIDE RAILS UP, WILL CONT. TO MONITOR
[2020-06-15] VITALS (58 sets, daily range): BP systolic 122–166; BP diastolic 62–91
--- NOTE | 2020-06-15 00:30 | NUR ---
PATIENTS TEMP IS 100.3 F[address] COOLING MEASURES IN PLACE, ICE PACKS, REMOVED PTS BLANKETS. WILL CONT. TO MONITOR.
[2020-06-15] MEDS: Z-GUARD PASTE TP SCH ×2 (01:00→12:38)
--- NOTE | 2020-06-15 01:30 | NUR ---
PTS TEMP WAS 99.8, STILL USING COOLING MEASURES. WILL CONT. TO MONITOR.
--- NOTE | 2020-06-15 02:00 | NUR ---
PT WAS PLACED IN PRONE POSITION/REVERSE [place]. NO S/S OF DISTRESS NOTED. SAFETY MEASURES IN PLACE. CALL LIGHT WITHIN REACH, WILL CONTINUE TO MONITOR. . Addendum: 06/15/20 at 0445 by Era Gamino RN RN ADDITIONALLY: MORNING ROUTINE, SUCTIONED, [facility] CARE, [facility] BATH.
[2020-06-15] MEDS: ALUMINUM HYDROXIDE 64 MG/ML BOTTLE PO SCH ×6 (04:00→20:00)
--- NOTE | 2020-06-15 04:00 | NUR ---
PT'S LATEST TEMP: 99.3F. NO S/S OF DISTRESS NOTED AT THIS TIME. SAFETY MEASURES IN PLACE, BED LOW AND LOCKED, SIDE RAILS UP, WILL CONT. TO MONITOR
--- NOTE | 2020-06-15 06:00 | NUR ---
PT IS STILL IN PRONE POSITION, SUCTIONED PATIENT, VAP ORAL CARE GIVEN. PT IS AFEBRILE. SAFETY MEASURES IN PLACE: BED LOW AND LOCKED, SIDE RAILS UP. CALL LIGHT WITHIN REACH, WILL CONTINUE TO MONITOR.
[2020-06-15 07:00] LABS: ANION GAP 11.9 (8-16); CARBON DIOXIDE 27.9 mmol/L (21-32); CREATININE 3.2 mg/dL (0.6-1.3); POTASSIUM 3.8 mmol/L (3.5-5.1)
--- NOTE | 2020-06-15 07:14 | NUR ---
RECEIVED INTUBATED PT WITH A 7.5 ETT SECURED @21 TEETH/GUMS ON VENT. SETTINGS A/C PC Pinsp27, R30, PEEP 12 AND FIO2 TITRATED TO 90%. PT IN PRONE POSITION AT THIS TIME TOLERATING WELL. VENT IS PLUGGED INTO A RED OUTLET WITH ALARMS ON AND FUNCTIONING. WILL CONTINUE TO MONITOR.
--- NOTE | 2020-06-15 07:42 | NUR ---
Patient has developed a fever last night: 100.8 F according to the night nurse report. Tylenol 650 mg were given and temperature went down to 100.3. This morning the tempereature remains febrile at 99.3. In addition, nurse noted that the patient was proned at 2:00 am and plan to be supined at 17:00. she was desaturating just after 15 minutes of proning. but saturation raised again above 94%. her vent setting remains unchanged with FI02= 90 & Peep =12. with ACPC MODE and rate =30 and PC-27 , Resp rate remains high and more than 30 this morning. We will continue to care the patient.
[2020-06-15 08:10] LABS: BASOPHILS # (AUTO) 0.2 K/uL (0.00-0.22); BASOPHILS % (AUTO) 1.2 % (0.0-2.0); HEMATOCRIT 22.8 % (36-48); HEMOGLOBIN 7.6 g/dL (12.0-16.0); LYMPHOCYTES # (AUTO) 0.2 K/uL (2.5-16.5); LYMPHOCYTES % (AUTO) 1.4 % (20.5-51.1); MEAN CORPUSCULAR HEMOGLOBIN 32 pg (27-31); MEAN CORPUSCULAR HGB CONC 34 g/dL (33-37); MEAN CORPUSCULAR VOLUME 96.6 fL (80-94); MONOCYTES # (AUTO) 0.2 K/uL (0.8-1.0); MONOCYTES % (AUTO) 1.6 % (1.7-9.3); NEUTROPHILS # (AUTO) 13.6 K/uL (1.8-7.7); NEUTROPHILS % (AUTO) 95.8 % (42.2-75.2); PLATELET COUNT (AUTO) 157 K/uL (140-450); RED BLOOD CELL COUNT(AUTO) 2.36 MIL/uL (4.20-5.40); RED CELL DISTRIBUTION WIDTH 14.2 % (11.6-13.7); WHITE BLOOD COUNT (AUTO) 14.2 K/uL (4.8-10.8)
[2020-06-15] MEDS: glipiZIDE 5 MG TAB PO SCH ×2 (08:13→16:47)
[2020-06-15] MEDS: BLOOD GLUCOSE MONITORING 1 DEV DEV FS SCH ×4 (08:13→21:00)
[2020-06-15] MEDS: INSULIN LISPRO SLIDING SCALE 100 UNITS/ML VIAL SUBQ PRN ×2 (08:15→11:45)
[2020-06-15] MEDS: PANTOPRAZOLE 40 MG INJ VIAL IVP SCH (09:00)
[2020-06-15] MEDS: ASCORBIC ACID 500 MG/5 ML ORASYR GT SCH ×2 (09:00→21:00)
[2020-06-15] MEDS: methylPREDNISolone SS 40 MG/ML VIAL IVP SCH ×2 (09:00→21:00)
[2020-06-15] MEDS: INSULIN LANTUS 100 UNITS/ML 10 ML VIAL SUBQ SCH (09:01)
[2020-06-15] MEDS: THERAHONEY GEL 42.5 GM TP SCH (15:28)
[2020-06-15] MEDS: cefTRIAXone 2,000 MG in DEXTROSE 5% 100 ML IV SCH (16:58)
[2020-06-15] MEDS: MIDAZOLAM MDV 100 MG in NACL 0.9% 80 ML IV PRN (17:02)
--- NOTE | 2020-06-15 17:34 | NUR ---
FIO2 INCREASED TO 100%. PT PLACED BACK INTO SUPINE POSITION. ETT SECURE WITH A PATENT AIRWAY. VENT ALARMS ON AND FUNCTIONING.
--- NOTE | 2020-06-15 17:49 | NUR ---
Patient presents a pneumomediastinum on right upper & middle lobes. During the supine procedure , the day nurse observed abnormal or asymmetric of both lung. Palpation showed presence of air in the right mediastinum. Dr. STEPHENS urgently was paged related to this change of condition in lungs of the patient. Respiratory and charge nurse were immediately notified related this abnormal condition of the respiratory system. we continue to highly monitor the patient's saturation and other parameters.
--- NOTE | 2020-06-15 17:58 | NUR ---
Mediastinal emphysema or pneumomediastinum was observed the right upper and middle lung of the patient. Dr. BHAKTA was urgently paged about the change of condition.
--- NOTE | 2020-06-15 19:45 | NUR ---
PATIENT COMPLETED DIALYSIS, OUTPUT: 2L. NO S/S OF DISTRESS NOTED, CONTINUE TO MONITOR CLOSELY. Addendum: 06/16/20 at 0208 by Era Gamino RN RN WRONG PATIENT.
--- NOTE | 2020-06-15 20:00 | NUR ---
RECEIVED REPORT FROM DAY SHIFT RN. DRY WEIGHT 48KG. RASS -3. ETT TO VENT. A/C PC. FIO2: 100%, RATE: 30, PEEP: 12. CREPITIS NOTED TO RIGHT NECK EXTENDING TO THE RIGHT SHOULDER AND EXTENDING TO RIGHT SIDE OF CHEST, AND LT SHOULDER AND LEFT SIDE OF CHEST. LUNG SOUNDS: UNABLE TO AUSCULTATE UPPER LOBES BILATERALLY, COARSE LOWER LOBES BILATERALLY. SR, S1S2 NOTED. LT IJ IN PLACE. RT UA PICC LINE PATENT, NO INFILTRATION/PHLEBITIS NOTED, RUNNING: FENTANYL 1 MCG/KG/MIN (4.8 ML/HR), VERSED 5MG/HR (5ML/HR), AND NS 0.45% @ 5ML/HR. BOWEL SOUNDS ACTIVE IN ALL 4 QUADRANTS. OG-TUBE TO FEED. RESIDUAL: 0ML FEEDING: NEPRO @ 60ML/HR, FWF: 380ML Q 12HR. BRODY IN PLACE, DRAINING TO GRAVITY. OPEN WOUND TO LT BUTTOCKS/COCCYX AREA, OPTIFOAM IN PLACE. SCATTERED BRUISUING TO UPPER EXTREMITIES, SKIN OTHERWISE INTACT. +2 PITTING EDEMA TO HANDS AND FEET. HEEL PROTECTORS IN PLACE. SAFETY MEASURES IN PLACE, BED LOW AND LOCKED. SIDE RAILS UP. CALL LIGHT WITHIN REACH. WILL CONTINUE TO MONITOR.
--- NOTE | 2020-06-15 20:05 | NUR ---
RECEIVED PATIENT FROM AM SHIFT. PATIENT WAS SEEN AND ASSESSED. FOUND PATIENT IN SUPINE POSITIONED. PATIENT IS INTUBATED WITH ETT SIZE 7.5 AND SECURED WITH ANCHOR-FAST AT 21cm. PATIENT IS ON VENT SETTINGS: AC/PC RR 30, PIP 27, PEEP 12, FiO2 100% WITH SPO2 OF 95%. VENT IS PLUGGED IN RED OUTLET. ALARMS SET AND AUDIBLE TO ENVIRONMENT. SUCTIONED SCANT AMOUNT OF CLEAR/WHITE SECRETIONS FROM ETT. AIRWAY IS PATENT. BREATH SOUNDS ON AUSCULTATION REVEALS RALES BILATERALLY. PATIENT IS IN NO APPARENT RESPIRATORY DISTRESS AT THIS TIME. WILL CONTINUE TO MONITOR PATIENT.
[2020-06-15] MEDS ORDERED: FLUCONAZOLE 200 MG/NS PREMIX 100 ML IV ONE (20:44)
[2020-06-15] MEDS: FLUCONAZOLE 100 MG/NS PREMIX 50 ML IV SCH (21:00)
--- NOTE | 2020-06-15 21:03 | NUR ---
TITRATED PEEP TO 10 cmH20. PT TOLERATED WELL. SPO2 95%.
--- NOTE | 2020-06-15 22:00 | NUR ---
PATIENTS CONDITION REMAINS UNCHANGED. PT IS AFEBRILE. SAFETY MEASURES IN PLACE, BED LOW AND LOCKED, SIDE RAILS UP, WILL CONT. TO MONITOR
--- NOTE | 2020-06-15 23:30 | NUR ---
PATIENTS OXYGEN SATURATION IS 78%. RT AWARE.
--- NOTE | 2020-06-15 23:40 | NUR ---
CALLED TO BEDSIDE DUE TO PT DESATURATING. AT APPROXIMATELY 06/16/20 0000 PLACED PATIENT IN PRONE POSITION. PATIENT TOLERATED PROCEDURE WELL. SUCTION YELLOW AMOUNT OF YELLOW THICK SECRETIONS FROM ETT. SPO2 91%. BILATERAL BREATH SOUNDS ON AUSCULTATION. PATIENT IS IN NO RESPIRATORY DISTRESS AT THIS TIME. RNs AT BEDSIDE. WILL CONTINUE TO MONITOR PATIENT.
[2020-06-16] VITALS (79 sets, daily range): BP systolic 143–177; BP diastolic 72–92
--- NOTE | 2020-06-16 | NUR ---
PATIENTS OXYGEN SATURATION REMAINED IN THE LOW 80s. PT WAS PLACED IN PRONE POSITION/REVERSE [place]G. MORNING ROUTINE GIVEN, SUCTIONED, BRODY CARE, CHG BATH. SAFETY MEASURES IN PLACE. CALL LIGHT WITHIN REACH, WILL CONTINUE TO MONITOR.
--- NOTE | 2020-06-16 00:30 | NUR ---
PATIENTS OXYGEN SATURATION INCREASED TO 90s.
[2020-06-16] MEDS: Z-GUARD PASTE TP SCH ×2 (01:00→12:31)
--- NOTE | 2020-06-16 02:00 | NUR ---
PT IS STILL IN PRONE/REVERSE [place]DE[place] POSITION, OXYGEN SATURATION IN THE 90s. WILL CONTINUE TO MONITOR.
[2020-06-16] MEDS: ALUMINUM HYDROXIDE 64 MG/ML BOTTLE PO SCH ×6 (04:00→20:00)
--- NOTE | 2020-06-16 04:00 | NUR ---
PATIENTS CONDITION REMAINS UNCHANGED. WILL CONTINUE TO ASSESS
[2020-06-16] MEDS: fentaNYL citrate - 50mL vial 2.5 MG in NACL 0.9% 200 ML IV PRN (05:30)
--- NOTE | 2020-06-16 06:00 | NUR ---
PT IS AFEBRILE. SAFETY MEASURES IN PLACE, BED LOW AND LOCKED, SIDE RAILS UP, WILL CONT. TO MONITOR
[2020-06-16 06:18] LABS: HEMATOCRIT 24.6 % (36-48); HEMOGLOBIN 8.1 g/dL (12.0-16.0); LYMPHOCYTES # (AUTO) 4.2 K/uL (2.5-16.5); MEAN CORPUSCULAR HEMOGLOBIN 32 pg (27-31); MEAN CORPUSCULAR HGB CONC 33 g/dL (33-37); MEAN CORPUSCULAR VOLUME 97.7 fL (80-94); MONOCYTES # (AUTO) 0.3 K/uL (0.8-1.0); MONOCYTES % (AUTO) 1.7 % (1.7-9.3); NEUTROPHILS # (AUTO) 14.4 K/uL (1.8-7.7); NEUTROPHILS % (AUTO) 76.3 % (42.2-75.2); PLATELET COUNT (AUTO) 170 K/uL (140-450); RED BLOOD CELL COUNT(AUTO) 2.52 MIL/uL (4.20-5.40); RED CELL DISTRIBUTION WIDTH 14.3 % (11.6-13.7); WHITE BLOOD COUNT (AUTO) 18.9 K/uL (4.8-10.8)
[2020-06-16 06:40] LABS: ANION GAP 11.4 (8-16); CARBON DIOXIDE 27.4 mmol/L (21-32); CREATININE 3.9 mg/dL (0.6-1.3); MAGNESIUM 1.9 mg/dL (1.8-2.4); PHOSPHORUS 6.3 mg/dL (2.5-4.9); POTASSIUM 3.8 mmol/L (3.5-5.1); TOTAL BILIRUBIN 0.3 mg/dL (0.0-1.0)
--- NOTE | 2020-06-16 07:02 | NUR ---
RECEIVED INTUBATED PT WITH 7.5 ETT SECURED @21 TEETH/GUM ON VENT. SETTINGS PC Pinsp 27, R30, PEEP 10 AND FIO2 100%. PT SUCTIONED OBTAINED SMALL AMOUNT OF THICK YELLOW SECRETIONS, AIRWAY IS PATENT AND ETT IS SECURE WITH ANCHOR FAST DEVICE. PT IN PRONE POSITION AT THIS TIME TOLERATING WELL. VENT IS PLUGGED INTO A RED OUTLET WITH ALARMS ON AND FUNCTIONING. WILL CONTINUE TO MONITOR.
[2020-06-16] MEDS: BLOOD GLUCOSE MONITORING 1 DEV DEV FS SCH ×4 (07:30→21:00)
--- NOTE | 2020-06-16 07:30 | NUR ---
Received patient on prone position.Ett to vent with zux6=333 percent.Quinones to gravity.Right upper arm Picc line with fentanyl drip at 1 mcg/kg/min ,dry weight is 48 kg.Versed drip at 5 mg/h.Rass-3 as ordered.nsr on the monitor.
[2020-06-16] MEDS: INSULIN LANTUS 100 UNITS/ML 10 ML VIAL SUBQ SCH (09:00)
--- NOTE | 2020-06-16 09:00 | NUR ---
DR STEPHENS UPDATED ABOUT PTS CONDITION ESPECIALLY PT WITH SUBCUTANEOUS EMPHYSEMA AT UPPER POSTERIOR NEAR NECK.
[2020-06-16] MEDS: glipiZIDE 5 MG TAB PO SCH ×2 (09:02→16:11)
[2020-06-16] MEDS: methylPREDNISolone SS 40 MG/ML VIAL IVP SCH ×2 (09:04→21:00)
[2020-06-16] MEDS: PANTOPRAZOLE 40 MG INJ VIAL IVP SCH (09:04)
--- NOTE | 2020-06-16 10:00 | NUR ---
DR HU AWARE OF PT BEING TACHYPNEIC AND SHALLOW BREATHING. Addendum: 06/16/20 at 2034 by Ana Cristina Hoover RN RN AND LABORED BREATHING. Addendum: 06/16/20 at 2039 by Ana Cristina Hoover RN RN DR HU MADE AWARE TO CALL DAUGHTER REQUESTED.
[2020-06-16] MEDS: ASCORBIC ACID 500 MG/5 ML ORASYR GT SCH ×2 (12:30→21:00)
--- NOTE | 2020-06-16 13:56 | NUR ---
Dr Recinos made aware pt desaturating to 77 percent.respiratory therapist made aware and will come and see the patient.pt suctioned thru ETT and orally.
[2020-06-16] MEDS: MIDAZOLAM MDV 100 MG in NACL 0.9% 80 ML IV PRN (13:59)
--- NOTE | 2020-06-16 14:05 | NUR ---
pt saturation is 94 percent
--- NOTE | 2020-06-16 14:15 | NUR ---
UPDATED DR Suarez ABOUT PTS CONDITION ESPECIALLY bun=71,CREATININE=3.9,CA=7.7
[2020-06-16] MEDS: THERAHONEY GEL 42.5 GM TP SCH (14:57)
[2020-06-16] MEDS: cefTRIAXone 2,000 MG in DEXTROSE 5% 100 ML IV SCH (16:10)
[2020-06-16] MEDS ORDERED: fentaNYL citrate 1 MG in NACL 0.9% 80 ML IV PRN (16:35)
--- NOTE | 2020-06-16 17:20 | NUR ---
PT SATURATION WENT DOWN TO 82 PERCENT.dR Rushing MADE AWARE.RT Frank ADJUSTED THE FIO2 TO 100 PERCENT.
--- NOTE | 2020-06-16 17:25 | NUR ---
PT SATURATION IS 87 TO 92 PERCENT
--- NOTE | 2020-06-16 19:15 | NUR ---
REPORT GIVEN TO Eric FOR CONTINUITY OF CARE
--- NOTE | 2020-06-16 20:00 | NUR ---
RECEIVED PATIENT FROM AM SHIFT. PATIENT WAS SEEN AND ASSESSED. FOUND PATIENT IN PRONE POSITIONED. PATIENT IS INTUBATED WITH ETT SIZE 7.5 AND SECURED WITH ANCHOR-FAST AT 21cm. PATIENT IS ON VENT SETTINGS: AC/PC RR 30, PIP 27, PEEP 8, FiO2 100% WITH SPO2 OF 96%. VENT IS PLUGGED IN RED OUTLET. ALARMS SET AND AUDIBLE TO ENVIRONMENT. SUCTIONED SCANT AMOUNT OF CLEAR/WHITE SECRETIONS FROM ETT. AIRWAY IS PATENT. BREATH SOUNDS ON AUSCULTATION REVEALS RALES BILATERALLY. PATIENT IS IN NO APPARENT RESPIRATORY DISTRESS AT THIS TIME. WILL CONTINUE TO MONITOR PATIENT.
--- NOTE | 2020-06-16 20:00 | NUR ---
RECEIVED REPORT FROM DAY SHIFT RN. DRY WEIGHT 48KG. RASS -3. ETT TO VENT. A/C PC. FIO2: 100%, RATE: 30, PEEP: 8. CREPITUS NOTED TO RIGHT NECK EXTENDING TO THE RIGHT SHOULDER AND EXTENDING TO RIGHT SIDE OF BACK, AND LT SHOULDER. LUNG SOUNDS: UNABLE TO AUSCULTATE UPPER LOBES BILATERALLY, COARSE LOWER LOBES BILATERALLY. SR, S1S2 NOTED. LT IJ IN PLACE. RT UA PICC LINE PATENT, NO INFILTRATION/PHLEBITIS NOTED, RUNNING: FENTANYL 1 MCG/KG/MIN (4.8 ML/HR), VERSED 5MG/HR (5ML/HR), AND NS 0.45% @ 5ML/HR. BOWEL SOUNDS ACTIVE IN ALL 4 QUADRANTS. OG-TUBE TO FEED. RESIDUAL: 0ML, FEEDING HELD AT THIS TIME, PATIENT IS IN PRONE POSITION. BRODY IN PLACE, DRAINING TO GRAVITY. OPEN WOUND TO SACRAL AREA, OPTIFOAM IN PLACE. SCATTERED BRUISUING TO UPPER EXTREMITIES, SKIN OTHERWISE INTACT. +2 PITTING EDEMA TO HANDS AND FEET. SAFETY MEASURES IN PLACE, BED LOW AND LOCKED. SIDE RAILS UP. CALL LIGHT WITHIN REACH. WILL CONTINUE TO MONITOR.
[2020-06-16] MEDS: FLUCONAZOLE 100 MG/NS PREMIX 50 ML IV SCH (21:00)
--- NOTE | 2020-06-16 22:00 | NUR ---
PATIENTS CONDITION REMAINS UNCHANGED. PT IS AFEBRILE. SAFETY MEASURES IN PLACE, BED LOW AND LOCKED, SIDE RAILS UP, WILL CONT. TO MONITOR
[2020-06-16] MEDS ORDERED: FLUCONAZOLE 200 MG/NS PREMIX 100 ML IV ONE (22:41)
[2020-06-17] VITALS (49 sets, daily range): BP systolic 102–178; BP diastolic 54–95
--- NOTE | 2020-06-17 00:50 | NUR ---
REPOSITION PATIENT'S HEAD, ARMS, AND ETT. PATIENT TOLERATED PROCEDURE WELL. BILATERAL BREATH SOUNDS ON AUSCULTATION. CATHETER PASSED. SUCTION SCANT WHITE/YELLOW THICK SECRETIONS FROM ETT. AIRWAY IS PATENT. PATIENT IS IN NO RESPIRATORY DISTRESS AT THIS TIME. RN AT BEDSIDE. WILL CONTINUE TO MONITOR PATIENT.
[2020-06-17] MEDS: Z-GUARD PASTE TP SCH ×2 (01:49→13:01)
--- NOTE | 2020-06-17 02:00 | NUR ---
PT IS STILL IN PRONE POSITION. PT IS AFEBRILE. OXYGEN SATURATION IN HIGH 80s TO LOW 90s. SAFETY MEASURES IN PLACE: BED LOW AND LOCKED, SIDE RAILS UP. CALL LIGHT WITHIN REACH, WILL CONTINUE TO MONITOR.
[2020-06-17] MEDS: ALUMINUM HYDROXIDE 64 MG/ML BOTTLE PO SCH ×3 (04:00→08:14)
--- NOTE | 2020-06-17 06:00 | NUR ---
PT IS AFEBRILE. SAFETY MEASURES IN PLACE, BED LOW AND LOCKED, SIDE RAILS UP, WILL CONT. TO MONITOR
[2020-06-17 06:57] LABS: BASOPHILS # (AUTO) 0.2 K/uL (0.00-0.22); BASOPHILS % (AUTO) 1.4 % (0.0-2.0); HEMATOCRIT 25.9 % (36-48); HEMOGLOBIN 8.6 g/dL (12.0-16.0); LYMPHOCYTES # (AUTO) 0.1 K/uL (2.5-16.5); LYMPHOCYTES % (AUTO) 0.8 % (20.5-51.1); MEAN CORPUSCULAR HEMOGLOBIN 33 pg (27-31); MEAN CORPUSCULAR HGB CONC 33 g/dL (33-37); MONOCYTES # (AUTO) 0.2 K/uL (0.8-1.0); MONOCYTES % (AUTO) 0.9 % (1.7-9.3); NEUTROPHILS # (AUTO) 16.1 K/uL (1.8-7.7); NEUTROPHILS % (AUTO) 96.9 % (42.2-75.2); PLATELET COUNT (AUTO) 203 K/uL (140-450); RED BLOOD CELL COUNT(AUTO) 2.64 MIL/uL (4.20-5.40); RED CELL DISTRIBUTION WIDTH 14.9 % (11.6-13.7); WHITE BLOOD COUNT (AUTO) 16.6 K/uL (4.8-10.8)
--- NOTE | 2020-06-17 07:15 | NUR ---
HANDOFF RECEIVED FROM BUILDING AND CONSTRUCTION MANAGER RN. PT IS SEDATED RASS -3. PT IS ETT TO VENT, ACPC FIO2 100%, R 30, PEEP 8. PT HAS [facility] SMITA CATH FOR DIALYSIS AND RASHARD PICC. VERSED IS RUNNING AT 5 MG/HR, FENTANYL IS RUNNING AT 1.5 MCG/KG/HR. PT HAS OG TUBE WITH NEPRO RUNNING AT 60 ML/HR WITH FWF 380 ML Q 12HR. FEEDING IS HELD BECAUSE PATIENT IS PRONE. PT IS SR/ST ON THE MONITOR. BRODY CATHETER IS IN PLACE. WILL CONTINUE TO MONITOR.
[2020-06-17] MEDS: BLOOD GLUCOSE MONITORING 1 DEV DEV FS SCH ×4 (07:30→21:00)
[2020-06-17] MEDS: PANTOPRAZOLE 40 MG INJ VIAL IVP SCH (08:14)
[2020-06-17] MEDS: ASCORBIC ACID 500 MG/5 ML ORASYR GT SCH ×2 (08:14→21:00)
[2020-06-17] MEDS: methylPREDNISolone SS 40 MG/ML VIAL IVP SCH ×2 (08:14→21:00)
[2020-06-17] MEDS: glipiZIDE 5 MG TAB PO SCH ×2 (08:14→16:41)
--- NOTE | 2020-06-17 08:30 | NUR ---
MEDICATIONS ADMINISTERED PER ORDER. PT HAD 0 ML RESIDUAL FROM FEED. BS 226, 4 UNITS INSULIN ADMINISTERED, ALONG WITH LANTUS. CHG BATH, BRODY CARE PROVIDED. TEMPERATURE 97.4 AXILLARY.
[2020-06-17] MEDS: INSULIN LISPRO SLIDING SCALE 100 UNITS/ML VIAL SUBQ PRN ×4 (09:20→23:48)
[2020-06-17] MEDS: INSULIN LANTUS 100 UNITS/ML 10 ML VIAL SUBQ SCH (09:20)
[2020-06-17 11:01] LABS: CARBON DIOXIDE 23.4 mmol/L (21-32); CREATININE 4.4 mg/dL (0.6-1.3); POTASSIUM 4.4 mmol/L (3.5-5.1); TOTAL BILIRUBIN 0.3 mg/dL (0.0-1.0)
[2020-06-17 11:02] LABS: ALBUMIN 2.2 g/dL (3.4-5.0); MAGNESIUM 1.9 mg/dL (1.8-2.4); PHOSPHORUS 6.5 mg/dL (2.5-4.9)
[2020-06-17] MEDS: MIDAZOLAM MDV 100 MG in NACL 0.9% 80 ML IV PRN (12:23)
--- NOTE | 2020-06-17 12:30 | NUR ---
BS 230, 4 UNITS INSULIN ADMINISTERED
[2020-06-17] MEDS: THERAHONEY GEL 42.5 GM TP SCH (15:03)
--- NOTE | 2020-06-17 16:17 | NUR ---
DR. KIMBROUGH TO SEE PT. PER JOSH MARCELO TO DIALYZE PATIENT WHILE PRONE. [employer] JOU[employer]LIST MADE AWARE.
--- NOTE | 2020-06-17 16:30 | NUR ---
BS 206, 4 UNITS INSULIN GIVEN
[2020-06-17] MEDS: cefTRIAXone 2,000 MG in DEXTROSE 5% 100 ML IV SCH (16:41)
--- NOTE | 2020-06-17 16:42 | NUR ---
06/17/20 RD FOLLOW UP COMPLETED PLEASE REFER TO NUTRITION ASSESSMENT UNDER CARE ACTIVITY FOR ESTIMATED NUTRITIONAL NEEDS. 1. CONSIDER PARENTERAL NUTRITION IF UNABLE TO TURN PT TO SUPINE POSITION 2. IF/WHEN MORE MEDICALLY STABLE, CONTINUE NEPRO 1.8 @ 60 ML/HR X 8 HOURS WITH PROSOURCE TID DURING SUPINE POSITION -THIS WILL PROVIDE 1044 KCAL AND 83 GM OF PROTEIN WHICH MEETS 77% OF ESTIMATED KCAL NEEDS AND 100% OF ESTIMATED PROTEIN NEEDS. 3. RECOMMENDED FLUSH OF [address] TO FOLLOW-UP 2-3 DAYS, HIGH RISK SEBASTI[address]N ZUNIGA RD
--- NOTE | 2020-06-17 19:15 | NUR ---
HANDOFF GIVEN TO [employer] SPECIALIST RN FOR CONTINUITY OF CARE
--- NOTE | 2020-06-17 20:05 | NUR ---
RECEIVED REPORT FROM [facility] NURSE. PT ETT TO VENT, AC PC FI02 100%, RATE 30, PEEP 8. [facility] SMITA CATH IN PLACE. PT CURRENTLY IN PRONE POSITION. RASHARD PICC, INFUSING VERSED 5MG/HR, AND FENTANYL 1.5MCG/KG/HR, RASS -3, DRY WEIGHT 48KG. SKIN WARM AND DRY, AFEBRILE. NOT INTACT, SMALL SKIN TEAR TO SACRUM/BUTTOCKS, OPTIFOAM DRESSING IN PLACE. NGT IN PLACE, FEEDING HELD AT THIS TIME. BRODY CATH DRAINING BY GRAVITY, JAZMINE URINE NOTED. FLACC 0. REVERSE TRENDELENBURG, SAFETY MEASURES IN PLACE. DIALYSIS NURSE AT BEDSIDE TO INITIATE DIALYSIS, CONFIRMED OK TO START WHILE PRONED. WILL CONTINUE TO MONITOR.
[2020-06-17] MEDS: FLUCONAZOLE 100 MG/NS PREMIX 50 ML IV SCH (21:00)
--- NOTE | 2020-06-17 21:50 | NUR ---
PT STARTING TO DESAT DURING DIALYSIS. RN AT BEDSIDE TO ADMINISTER MEDICATIONS. BLOOD SUGAR HIGH, COVERED PER SLIDING SCALE. PROVIDED ORAL CARE, PT WITHDRAWS TO CLEANING/SUCTIONING.
--- NOTE | 2020-06-17 22:10 | NUR ---
PT ABLE TO COMPLETE DIALYSIS WITHOUT INCIDENT, 2L OUT. DIALYSIS NURSE CHANGED CENTRAL LINE DRESSING AT [facility], INTACT AND DRY. ALL VITALS WITHIN RANGE. WILL CONTINUE TO MONITOR.
[2020-06-17] MEDS ORDERED: metroNIDAZOLE 500 MG/NS PREMIX 0 ML IV ONE (22:41)
[2020-06-18] VITALS (103 sets, daily range): BP systolic 90–161; BP diastolic 44–95
--- NOTE | 2020-06-18 00:20 | NUR ---
VISIBLE CHEST RISE AND FALL, NO SIGNS OF DISTRESS, VSS. SAFETY MEASURES IN PLACE.
[2020-06-18] MEDS: Z-GUARD PASTE TP SCH ×2 (01:29→12:43)
--- NOTE | 2020-06-18 02:01 | NUR ---
PT SEDATED, NO SIGNS OF DISTRESS, ALL VITALS WITHIN RANGE, FLACC 0. REVERSE [place]DELEN[place], SIDE RAILS UP. BED LOCKED AND IN LOWEST POSITION. CONTINUE CLOSE MONITORING.
[2020-06-18] MEDS: fentaNYL citrate - 50mL vial 2.5 MG in NACL 0.9% 200 ML IV PRN ×2 (04:34→21:15)
[2020-06-18 05:50] LABS: BASOPHILS # (AUTO) 0.1 K/uL (0.00-0.22); BASOPHILS % (AUTO) 0.7 % (0.0-2.0); HEMATOCRIT 24.7 % (36-48); HEMOGLOBIN 8.2 g/dL (12.0-16.0); LYMPHOCYTES # (AUTO) 0.1 K/uL (2.5-16.5); LYMPHOCYTES % (AUTO) 0.8 % (20.5-51.1); MEAN CORPUSCULAR HEMOGLOBIN 33 pg (27-31); MEAN CORPUSCULAR HGB CONC 33 g/dL (33-37); MEAN CORPUSCULAR VOLUME 98.2 fL (80-94); MONOCYTES # (AUTO) 0.2 K/uL (0.8-1.0); MONOCYTES % (AUTO) 1.3 % (1.7-9.3); NEUTROPHILS # (AUTO) 18.4 K/uL (1.8-7.7); NEUTROPHILS % (AUTO) 97.2 % (42.2-75.2); PLATELET COUNT (AUTO) 174 K/uL (140-450); RED BLOOD CELL COUNT(AUTO) 2.52 MIL/uL (4.20-5.40); WHITE BLOOD COUNT (AUTO) 18.9 K/uL (4.8-10.8)
[2020-06-18 06:19] LABS: ALBUMIN 2.1 g/dL (3.4-5.0); ANION GAP 12.2 (8-16); CARBON DIOXIDE 28.8 mmol/L (21-32); CREATININE 3.1 mg/dL (0.6-1.3); PHOSPHORUS 5.7 mg/dL (2.5-4.9); TOTAL BILIRUBIN 0.2 mg/dL (0.0-1.0)
[2020-06-18] MEDS: BLOOD GLUCOSE MONITORING 1 DEV DEV FS SCH ×4 (06:51→21:00)
[2020-06-18] MEDS: glipiZIDE 5 MG TAB PO SCH ×2 (06:52→16:38)
[2020-06-18] MEDS: INSULIN LISPRO SLIDING SCALE 100 UNITS/ML VIAL SUBQ PRN ×3 (06:52→22:40)
[2020-06-18 07:42] LABS: MAGNESIUM 1.8 mg/dL (1.8-2.4)
--- NOTE | 2020-06-18 08:05 | NUR ---
Report from the night nurse indicated that patient will be in prone position until MD decided. therefore feeding will shifted to certain procedures. She ahas OGTUEB and Nepro will perfused at least 10 cc with mixed supplement per hour. She has a right mediastinal emphysema since Wednesday. MD is awared about it. we will continue to provide the continuity of care.
[2020-06-18] MEDS: methylPREDNISolone SS 40 MG/ML VIAL IVP SCH ×2 (09:01→21:59)
[2020-06-18] MEDS: ASCORBIC ACID 500 MG/5 ML ORASYR GT SCH ×2 (09:01→21:58)
[2020-06-18] MEDS: PANTOPRAZOLE 40 MG INJ VIAL IVP SCH (09:02)
[2020-06-18] MEDS: INSULIN LANTUS 100 UNITS/ML 10 ML VIAL SUBQ SCH (09:05)
[2020-06-18] MEDS: MIDAZOLAM MDV 100 MG in NACL 0.9% 80 ML IV PRN (10:56)
[2020-06-18] MEDS: THERAHONEY GEL 42.5 GM TP SCH (15:05)
[2020-06-18] MEDS: cefTRIAXone 2,000 MG in DEXTROSE 5% 100 ML IV SCH (16:36)
--- NOTE | 2020-06-18 20:05 | NUR ---
RECEIVED REPORT FROM [facility] NURSE. PT ETT TO VENT, AC PC, FI02 100%, RATE 30, PEEP 8. [facility] CATH, DRY AND INTACT. RASHARD PICC LINE IN PLACE INFUSING VERSED 5MG AND FENTANYL 1MCG/KG/HR, RASS -3, PT WITHDRAWS AND OPENS EYES TO DEEP PAIN. PERRL 3MM. DRY WEIGHT [address] BRODY IN PLACE HANGING BY GRAVITY. SKIN WARM AND DRY, AFEBRILE. SKIN NOT INTACT, SACRAL PRESSURE INJURY, OPTIFOAM DRESSING IN PLACE PT CURRENTLY IN PRONE POSITION. VISIBLE RISE AND FALL, NO SIGNS OF DISTRESS, FLACC 0. REVERSE [place]ENDELEN[place]G WITH SIDE RAILS UP, BED LOCKED AND IN LOWEST POSITION. DROPLET PRECAUTIONS IN PLACE. WILL CONTINUE TO MONITOR.
--- NOTE | 2020-06-18 20:40 | NUR ---
PT RECEIVED PRONE ON PC 27 +8, f30, 100% C/ 7.5 ETT (DUE TO PRONE POSITION UNABLE TO VIEW SECUREMENT DEPTH) PT SEEMS TO BE RECEIVING ADEQUATE VOL AMBU AT BEDSIDE & VENT PLUGGED INTO RED OUTLET WILL CONTINUE TO MONITOR
[2020-06-18] MEDS: FLUCONAZOLE 100 MG/NS PREMIX 50 ML IV SCH (21:59)
[2020-06-19] VITALS (79 sets, daily range): BP systolic 61–159; BP diastolic 18–87
[2020-06-19] MEDS: Z-GUARD PASTE TP SCH ×2 (01:10→13:54)
[2020-06-19 06:03] LABS: HEMATOCRIT 22.9 % (36-48); HEMOGLOBIN 7.5 g/dL (12.0-16.0); MEAN CORPUSCULAR HEMOGLOBIN 32 pg (27-31); MEAN CORPUSCULAR HGB CONC 33 g/dL (33-37); MEAN CORPUSCULAR VOLUME 98.6 fL (80-94); PLATELET COUNT (AUTO) 214 K/uL (140-450); RED BLOOD CELL COUNT(AUTO) 2.32 MIL/uL (4.20-5.40); RED CELL DISTRIBUTION WIDTH 15.7 % (11.6-13.7)
[2020-06-19 06:16] LABS: WHITE BLOOD COUNT (AUTO) 27.6 K/uL (4.8-10.8)
[2020-06-19 06:50] LABS: ALBUMIN 2.2 g/dL (3.4-5.0); ANION GAP 14.4 (8-16); CARBON DIOXIDE 26.8 mmol/L (21-32); CREATININE 3.5 mg/dL (0.6-1.3); MAGNESIUM 1.8 mg/dL (1.8-2.4); PHOSPHORUS 6.3 mg/dL (2.5-4.9); POTASSIUM 4.2 mmol/L (3.5-5.1); TOTAL BILIRUBIN 0.3 mg/dL (0.0-1.0)
[2020-06-19 06:53] LABS: LYMPHOCYTES % (MANUAL) 2 % (20-46); MONOCYTES % (MANUAL) 3 % (5-12)
[2020-06-19] MEDS: BLOOD GLUCOSE MONITORING 1 DEV DEV FS SCH ×4 (06:59→21:50)
[2020-06-19] MEDS: glipiZIDE 5 MG TAB PO SCH ×2 (07:00→16:44)
[2020-06-19] MEDS: INSULIN LISPRO SLIDING SCALE 100 UNITS/ML VIAL SUBQ PRN ×4 (07:04→22:11)
[2020-06-19] MEDS: methylPREDNISolone SS 40 MG/ML VIAL IVP SCH ×2 (08:30→21:27)
[2020-06-19] MEDS: PANTOPRAZOLE 40 MG INJ VIAL IVP SCH (08:31)
[2020-06-19] MEDS: INSULIN LANTUS 100 UNITS/ML 10 ML VIAL SUBQ SCH (08:42)
[2020-06-19] MEDS: ASCORBIC ACID 500 MG/5 ML ORASYR GT SCH ×2 (08:46→21:27)
--- NOTE | 2020-06-19 09:15 | NUR ---
WOUND CARE EVALUATION NOTE: NO CHANGE OF WOUND CONDITION, BUTTOCKS 5X6X0.1CM WOUND BED IS MOIST 100% GRANULATING TISSUE, JOAO WOUND REDNESS /PURPLE DISCOLORATION FURTHER DAMAGE INDICATED. CONTINUE THERAHONEY TO LEFT BUTTOCK WOUND AND COVER WITH FOAM DRESSING, CONTINUE OFFLOADING
[2020-06-19] MEDS: MIDAZOLAM MDV 100 MG in NACL 0.9% 80 ML IV PRN (09:25)
--- NOTE | 2020-06-19 09:59 | NUR ---
DR JI ALLEN AT THIS TIME, DIALYSIS NURSE AT BEDSIDE, NEEDS PT SUPINED FOR BETTER DIALYSIS CLEARANCE, THERE'S AN ORDER TO KEEP PATIENT PRONE FROM [employer] SPECIALIST. WILL CLARIFY Addendum: 06/19/20 at 1005 by Yasemin Burks RN DR WORKMAN CALLED BACK, OK TO SUPINE FOR DIALYSIS
--- NOTE | 2020-06-19 11:40 | NUR ---
RNs at bedside, pt placed in supine position, ETT secure and intact, pts spo2 88-92%, will continue to monitor.
[2020-06-19] MEDS: THERAHONEY GEL 42.5 GM TP SCH (16:11)
[2020-06-19] MEDS: cefTRIAXone 2,000 MG in DEXTROSE 5% 100 ML IV SCH (16:12)
[2020-06-19] MEDS: fentaNYL citrate - 50mL vial 2.5 MG in NACL 0.9% 200 ML IV PRN (16:34)
[2020-06-19] MEDS: NOREPINEPHRINE 16 MG in DEXTROSE 5% 250 ML IV PRN (17:45)
--- NOTE | 2020-06-19 19:47 | NUR ---
RECEIVED REPORT FROM [facility] NURSE. PT ETT TO VENT, AC PC, FI02 100%, RATE 30, PEEP 8. [facility] CATH, DRY AND INTACT. RASHARD PICC LINE IN PLACE INFUSING VERSED 5MG AND FENTANYL 1MCG/KG/HR, AND LEVOPHED 15MCG/MIN. RASS -3, PT WITHDRAWS AND OPENS EYES TO DEEP PAIN. PERRL 3MM. DRY WEIGHT [address] CONNECTED TO TUBE FEEDING NEPRO @ 60ML/HR. BRODY IN PLACE HANGING BY GRAVITY. SKIN WARM AND DRY, AFEBRILE. SKIN NOT INTACT, SACRAL PRESSURE INJURY, OPTIFOAM DRESSING IN PLACE PT CURRENTLY IN SUPINE POSITION.NO SIGNS OF DISTRESS, FLACC 0.HOB 30 DEGREES WITH SIDE RAILS UP, BED LOCKED AND IN LOWEST POSITION. DROPLET PRECAUTIONS IN PLACE. WILL CONTINUE TO MONITOR.
--- NOTE | 2020-06-19 21:00 | NUR ---
OGT PLACEMENT CONFIRMED VIA AUSCULTATION. RESIDUALS LESS THAN 60ML. PROVIDED PROSOURCE SUPPLEMENT AND SCHEDULED MEDS GIVEN. NEPRO TUBE FEEDING GIVEN VIA BOLUS. TURNED AND POSITIONED PT, CHANGED PULSE OX AND SP02 LOW IN 70's-80's. RT AWARE. PROVIDED ORAL CARE AND SKIN CARE AT FACE AND NECK. SUBCU EMPHYSEMA NOTED. FLACC 0, SAFETY MEASURES IN PLACE.
[2020-06-19] MEDS: FLUCONAZOLE 100 MG/NS PREMIX 50 ML IV SCH (21:27)
[2020-06-20] VITALS (70 sets, daily range): BP systolic 84–154; BP diastolic 42–85
--- NOTE | 2020-06-20 00:30 | NUR ---
PT SUCCESSFULLY TURNED TO PRONE POSITION. CUSHION AND PILLOWS CAREFULLY PLACED AT CHEST AND FACE. ETT INTACT AND ABLE TO SUCTION THICK SECRETIONS. PT WITHDRAWS TO PAIN. SP02 IN 80's. REVERSE TRENDELENBURG, SIDERAILS UP. BED LOCKED AND IN LOW POSITION. FLACC 0. WILL CONTINUE TO MONITOR.
[2020-06-20] MEDS: Z-GUARD PASTE TP SCH ×2 (01:36→12:36)
[2020-06-20 05:53] LABS: HEMATOCRIT 21.5 % (36-48); MEAN CORPUSCULAR HEMOGLOBIN 32 pg (27-31); MEAN CORPUSCULAR HGB CONC 31 g/dL (33-37); MEAN CORPUSCULAR VOLUME 102.1 fL (80-94); PLATELET COUNT (AUTO) 206 K/uL (140-450); RED BLOOD CELL COUNT(AUTO) 2.11 MIL/uL (4.20-5.40); RED CELL DISTRIBUTION WIDTH 17.3 % (11.6-13.7)
[2020-06-20 06:24] LABS: ALBUMIN 2.1 g/dL (3.4-5.0); ANION GAP 17.6 (8-16); CARBON DIOXIDE 23.7 mmol/L (21-32); CREATININE 3.8 mg/dL (0.6-1.3); POTASSIUM 4.3 mmol/L (3.5-5.1); TOTAL BILIRUBIN 0.3 mg/dL (0.0-1.0)
--- NOTE | 2020-06-20 06:25 | NUR ---
LAB CALLED AT 620, LACTIC ACID 3.0
[2020-06-20] MEDS: BLOOD GLUCOSE MONITORING 1 DEV DEV FS SCH ×4 (07:03→21:50)
[2020-06-20] MEDS: INSULIN LISPRO SLIDING SCALE 100 UNITS/ML VIAL SUBQ PRN ×4 (07:04→21:50)
[2020-06-20] MEDS: glipiZIDE 5 MG TAB PO SCH ×2 (07:04→16:39)
--- NOTE | 2020-06-20 07:40 | NUR ---
Report from the night nurse indicated that DR WORKMAN saw the patient this morning related to her left-sided pneumomediastinum. 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 Her labs results such as chemical results showed YRC=545; CREA=3.2 and CA++= 7.2 as critical values for today. Pt is scheduled for HD today. Unchanged ventilator setting and sedation level and levophed 15 mcg/kg/minute. We will continue to provide care for this patient.
[2020-06-20] MEDS: methylPREDNISolone SS 40 MG/ML VIAL IVP SCH ×2 (08:30→21:00)
[2020-06-20] MEDS: MIDAZOLAM MDV 100 MG in NACL 0.9% 80 ML IV PRN (08:30)
[2020-06-20] MEDS: ASCORBIC ACID 500 MG/5 ML ORASYR GT SCH ×2 (08:31→22:16)
[2020-06-20] MEDS: PANTOPRAZOLE 40 MG INJ VIAL IVP SCH (08:31)
[2020-06-20] MEDS: INSULIN LANTUS 100 UNITS/ML 10 ML VIAL SUBQ SCH (08:32)
[2020-06-20 08:43] LABS: HEMOGLOBIN 6.7 g/dL (12.0-16.0); WHITE BLOOD COUNT (AUTO) 40.6 K/uL (4.8-10.8)
[2020-06-20 08:50] LABS: LYMPHOCYTES % (MANUAL) 1 % (20-46)
[2020-06-20 08:51] LABS: CORRECTED WHITE BLOOD COUNT 36.9 K/uL (4.5-11.0); MONOCYTES % (MANUAL) 7 % (5-12)
[2020-06-20] MEDS: NOREPINEPHRINE 16 MG in DEXTROSE 5% 250 ML IV PRN (10:24)
--- NOTE | 2020-06-20 11:15 | NUR ---
Keith Sandor Mcmahan, the daughter of Yee Lawson called for check-up. she stated that she got a call from the physician about a possible tracheostomy. She is giving her consent for the tracheostomy. Nurse told her that physician may call her back. her phone number is [phone]
--- NOTE | 2020-06-20 14:40 | NUR ---
06/20/20 RD FOLLOW UP COMPLETED PLEASE REFER TO NUTRITION ASSESSMENT UNDER CARE ACTIVITY FOR ESTIMATED NUTRITIONAL NEEDS. 1. CONTINUE NEPRO 1.8 @ 60 ML/HR X 8 HOURS WITH PROSOURCE TID DURING SUPINE POSITION -THIS WILL PROVIDE 1044 KCAL AND 83 GM OF PROTEIN WHICH MEETS 77% OF ESTIMATED KCAL NEEDS AND 100% OF ESTIMATED PROTEIN NEEDS. 2. RECOMMENDED FLUSH OF 350 ML Q12HR 3. CONTINUE VITAMIN C SUPPLEMENTATION 4. RD TO FOLLOW-UP 2-3 DAYS, HIGH RISK SEBASTIÁN ZUNIGA RD
[2020-06-20] MEDS: THERAHONEY GEL 42.5 GM TP SCH (14:55)
[2020-06-20] MEDS: cefTRIAXone 2,000 MG in DEXTROSE 5% 100 ML IV SCH (16:35)
[2020-06-20] MEDS ORDERED: VANCOMYCIN PER PHARMACY MC PRN ×2 (16:55→17:00)
--- NOTE | 2020-06-20 20:18 | NUR ---
RECEIVED REPORT FROM DAYSIAFT NURSE AT PT WINDOW. PT CURRENTLY IN PRONE POSITION. ETT TO VENT, AC PC FI02 100%,, RATE 30, PEEP 8. [facility] HD CATH IN PLACE. RASHARD PICC IN PLACE INFUSING VERSED 5MG/HR, FENTANYL 1.5MCG/KG/HR, AND LEVOPHED 10MCG/MIN. DRY WEIGHT 48KG IN PUMP, ON CHART [address] BRODY CATHETER HANGING BY GRAVITY. SKIN WARM AND DRY, NOT INTACT, PRESSURE WOUND ON SACRUM, DRESSING IN PLACE WITH THERAHONEY. REVERSE TRENDELENBURG, BED LOCKED AND SIDE RAILS UP. FLACC 0. DROPLET PRECAUTIONS IN PLACE, WILL CONTINUE TO MONITOR.
--- NOTE | 2020-06-20 20:36 | NUR ---
RECEIVED PATIENT FROM AM SHIFT. PATIENT WAS SEEN AND ASSESSED. FOUND PATIENT IN PRONE POSITIONED. PATIENT IS INTUBATED WITH ETT SIZE 7.5 AND SECURED WITH ANCHOR-FAST AT 21cm. PATIENT IS ON VENT SETTINGS: AC/PC RR 30, PIP 27, PEEP 8, FiO2 100% WITH SPO2 OF 91%. VENT IS PLUGGED IN RED OUTLET. ALARMS SET AND AUDIBLE TO ENVIRONMENT. AMBU BAG AT BEDSIDE. SUCTIONED SCANT AMOUNT OF CLEAR/WHITE SECRETIONS FROM ETT. AIRWAY IS PATENT. BREATH SOUNDS ON AUSCULTATION REVEALS RALES BILATERALLY. PATIENT IS IN NO APPARENT RESPIRATORY DISTRESS AT THIS TIME. WILL CONTINUE TO MONITOR PATIENT.
[2020-06-20] MEDS: CEFEPIME 500 MG in DEXTROSE 5% 50 ML IV SCH (21:00)
[2020-06-20] MEDS ORDERED: VANCOMYCIN 1,000 MG in DEXTROSE 5% 250 ML IV SCH (22:00)
--- NOTE | 2020-06-20 22:40 | NUR ---
PATIENT IN PRONE POSITION. REPOSITIONED PT's HEAD, ARMS, AND ETT. PATIENT TOLERATED PROCEDURE WELL. SUCTION SCANT AMOUNT OF CLEAR/WHITE THICK SECRETIONS FROM ETT. ETT SECURED AND AIRWAY IS PATENT. SPO2 95%. BILATERAL BREATH SOUNDS ON AUSCULTATION. PATIENT IS IN NO RESPIRATORY DISTRESS AT THIS TIME. RNs AT BEDSIDE. WILL CONTINUE TO MONITOR PATIENT.
[2020-06-21] VITALS (47 sets, daily range): BP systolic 70–140; BP diastolic 48–94
--- NOTE | 2020-06-21 00:10 | NUR ---
LARGE BOWEL MOVEMENT NOTED, DARK BLACK/BROWN AND LOOSE. PROVIDED SKIN, BRODY, AND WOUND CARE. FLACC 0. SIDE RAILS UP, TEMPERATURE LOW, ADDED MORE BLANKETS. WILL CONTINUE TO MONITOR.
[2020-06-21] MEDS: Z-GUARD PASTE TP SCH ×2 (00:26→13:00)
[2020-06-21 05:11] LABS: HEMATOCRIT 26.8 % (36-48); HEMOGLOBIN 8.7 g/dL (12.0-16.0); MEAN CORPUSCULAR HEMOGLOBIN 32 pg (27-31); MEAN CORPUSCULAR HGB CONC 32 g/dL (33-37); MEAN CORPUSCULAR VOLUME 98.4 fL (80-94); PLATELET COUNT (AUTO) 141 K/uL (140-450); RED BLOOD CELL COUNT(AUTO) 2.73 MIL/uL (4.20-5.40); RED CELL DISTRIBUTION WIDTH 15.2 % (11.6-13.7)
[2020-06-21] MEDS: BLOOD GLUCOSE MONITORING 1 DEV DEV FS SCH ×4 (05:59→21:40)
[2020-06-21] MEDS: INSULIN LISPRO SLIDING SCALE 100 UNITS/ML VIAL SUBQ PRN ×4 (06:00→22:01)
[2020-06-21 06:30] LABS: WHITE BLOOD COUNT (AUTO) 44.9 K/uL (4.8-10.8)
[2020-06-21 06:31] LABS: CORRECTED WHITE BLOOD COUNT 39.7 K/uL (4.5-11.0); LYMPHOCYTES % (MANUAL) 2 % (20-46); MONOCYTES % (MANUAL) 2 % (5-12)
[2020-06-21] MEDS: glipiZIDE 5 MG TAB PO SCH ×2 (06:43→16:34)
[2020-06-21] MEDS: MIDAZOLAM MDV 100 MG in NACL 0.9% 80 ML IV PRN (07:38)
[2020-06-21] MEDS: fentaNYL citrate - 50mL vial 2.5 MG in NACL 0.9% 200 ML IV PRN (07:42)
[2020-06-21 08:07] LABS: FOLIC ACID 7.8 ng/mL (>3.0)
[2020-06-21] MEDS: PANTOPRAZOLE 40 MG INJ VIAL IVP SCH (08:31)
[2020-06-21] MEDS: methylPREDNISolone SS 40 MG/ML VIAL IVP SCH ×2 (08:31→21:20)
[2020-06-21] MEDS: ASCORBIC ACID 500 MG/5 ML ORASYR GT SCH ×2 (08:32→21:19)
[2020-06-21] MEDS: INSULIN LANTUS 100 UNITS/ML 10 ML VIAL SUBQ SCH (08:39)
[2020-06-21] MEDS: CEFEPIME 500 MG in DEXTROSE 5% 50 ML IV SCH ×2 (08:59→21:20)
--- NOTE | 2020-06-21 10:34 | NUR ---
ABG RESULTS GIVEN TO OVER THE PHONE, NO CHANGES MADE BY PHYSICIAN AT THIS TIME. WILL CONTINUE TO MONITOR.
[2020-06-21] MEDS: NOREPINEPHRINE 16 MG in DEXTROSE 5% 250 ML IV PRN (13:30)
[2020-06-21] MEDS: THERAHONEY GEL 42.5 GM TP SCH (15:30)
[2020-06-21] MEDS ORDERED: DILTIAZEM 25 MG/5 ML VIAL IVP SCH (15:45)
[2020-06-21] MEDS ORDERED: fentaNYL citrate 1 MG in NACL 0.9% 80 ML IV PRN (15:50)
--- NOTE | 2020-06-21 19:14 | NUR ---
PATIENT HAS HEMODIALYSIS AND 1400 ML was output. Flexil-seal was inserted around 11:30 am. stool characteristics: color is dark and liquid. A sample was sent to lab for C-diff. Urine sample will be sent if there is amount of urine to be sent.
--- NOTE | 2020-06-21 19:50 | NUR ---
RECEIVED REPORT FROM DAYSHIFT NURSE AT PT WINDOW. PT CURRENTLY IN PRONE POSITION. ETT TO VENT, AC PC FI02 100%, RATE 30, PEEP 8. [facility] HD CATH IN PLACE. RASHARD PICC IN PLACE INFUSING VERSED 5MG/HR, FENTANYL 1.5MCG/KG/HR, AND LEVOPHED 26 MCG/MIN. DRY WEIGHT 48KG IN PUMP, ON CHART [address] CONNECTED TO NEPRO TUBE FEEDING AT 10ML/HR. BRODY CATHETER HANGING BY GRAVITY. SKIN WARM AND DRY, NOT INTACT, PRESSURE WOUND ON SACRUM, DRESSING IN PLACE WITH THERAHONEY. FLEXISEAL RECTAL BAG IN PLACE, DARK LIQUID STOOL NOTED. REVERSE TRENDELENBURG, BED LOCKED AND SIDE RAILS UP. FLACC 0. DROPLET PRECAUTIONS IN PLACE, WILL CONTINUE TO MONITOR.
[2020-06-22] VITALS (49 sets, daily range): BP systolic 90–127; BP diastolic 50–72
[2020-06-22] MEDS: Z-GUARD PASTE TP SCH ×2 (01:00→12:51)
[2020-06-22] MEDS: BLOOD GLUCOSE MONITORING 1 DEV DEV FS SCH ×4 (04:53→21:25)
[2020-06-22] MEDS: INSULIN LISPRO SLIDING SCALE 100 UNITS/ML VIAL SUBQ PRN ×3 (06:42→16:27)
[2020-06-22] MEDS: glipiZIDE 5 MG TAB PO SCH ×2 (06:47→16:30)
--- NOTE | 2020-06-22 07:00 | NUR ---
REPORT FROM NIGHT NURSE INDICATED THAT DR. WORKMAN SAW THE PATIENT ON MOTHER'S HELPER. CXR was not available in that time according to the night nurse. Critical labs result as BUN was 70, creat 2.9 and WBC =39.3. PUBLIC HEALTH STAFF NURSE came and saw the patient. Day nurse mentioned that during the hemodialysis, patient present sinus TACHYCARDIA WITH HEART HEYS=603. Pneumomediastinum has improved but patient is desaturating (56% t0 81%) although ku24=568%. Patient is on prone position alternated with supine with lateral. We will continue to provide care.
[2020-06-22 07:04] LABS: HEMATOCRIT 25.8 % (36-48); HEMOGLOBIN 8.2 g/dL (12.0-16.0); MEAN CORPUSCULAR HEMOGLOBIN 32 pg (27-31); MEAN CORPUSCULAR HGB CONC 32 g/dL (33-37); MEAN CORPUSCULAR VOLUME 101.9 fL (80-94); PLATELET COUNT (AUTO) 117 K/uL (140-450); RED BLOOD CELL COUNT(AUTO) 2.54 MIL/uL (4.20-5.40); RED CELL DISTRIBUTION WIDTH 16.5 % (11.6-13.7)
[2020-06-22 07:27] LABS: CARBON DIOXIDE 26.2 mmol/L (21-32); CREATININE 2.9 mg/dL (0.6-1.3); POTASSIUM 3.2 mmol/L (3.5-5.1)
[2020-06-22 07:55] LABS: WHITE BLOOD COUNT (AUTO) 39.3 K/uL (4.8-10.8)
[2020-06-22] MEDS: ASCORBIC ACID 500 MG/5 ML ORASYR GT SCH ×2 (08:01→20:34)
[2020-06-22] MEDS: methylPREDNISolone SS 40 MG/ML VIAL IVP SCH ×2 (08:01→20:34)
[2020-06-22] MEDS: PANTOPRAZOLE 40 MG INJ VIAL IVP SCH (08:01)
[2020-06-22] MEDS: INSULIN LANTUS 100 UNITS/ML 10 ML VIAL SUBQ SCH (08:02)
[2020-06-22] MEDS: CEFEPIME 500 MG in DEXTROSE 5% 50 ML IV SCH ×2 (09:00→21:26)
[2020-06-22 09:48] LABS: LYMPHOCYTES % (MANUAL) 3 % (20-46); MONOCYTES % (MANUAL) 4 % (5-12)
[2020-06-22] MEDS ORDERED: VANCOMYCIN 1,000 MG in DEXTROSE 5% 250 ML IV SCH (16:00)
[2020-06-22] MEDS: THERAHONEY GEL 42.5 GM TP SCH (16:08)
[2020-06-22] MEDS: NOREPINEPHRINE 16 MG in DEXTROSE 5% 250 ML IV PRN (16:12)
--- NOTE | 2020-06-22 19:20 | NUR ---
RECEIVED PATIENT ON BED IN PRONE POSITION; ORALLY INTUBATED AND VENTILATED AT 100% FIO2; S02 IN THE 70'S. SEDATED RASS -3 ON VERSED AND FENTANYL DRIP. AND LEVOPHED DRIP FOR BP MAINTENANCE. CARDIACSCOPE SHOWS PM SINUS RHYTHM HR 94/MIN VIA PICC LINE ON RIGHT UPPER ARM; INTACT.ALL EXTREMITIES WITH PITTING EDEMA 2+. DIALYSIS ACCESS ON LEFT INTERNAL JUGULAR; INTACT. ABDOMEN IS SOFT;HYPOACTIVE BOWEL SOUNDS. ON CONTINOUS TUBE FEEDING NEPRO AT 10 ML/HR VIA OGT; INTACT.. WITH BRODY CATH IN SITU TO GRACITY DRAINAGE BAG; DRAINING TO SMALL AMOUNT OF URINE OUTPUT.. RECTAL TUBE IN PLACE, WITH MODERATE AMOUNT OF DARK BROWN TO BLACKISH WATERY STOOL..
[2020-06-22] MEDS: fentaNYL citrate 2.5 MG in NACL 0.9% 200 ML IV PRN (21:20)
[2020-06-23] VITALS (29 sets, daily range): BP systolic 98–128; BP diastolic 46–68
[2020-06-23] MEDS: MIDAZOLAM MDV 100 MG in NACL 0.9% 80 ML IV PRN (02:35)
--- NOTE | 2020-06-23 05:15 | NUR ---
PATIENT INTO BRADYCARDIA HR 37-40/MIN, PULSE APPRECIATED; TRIED TO SHAKE OR WAKE HER UP AND HR WENT UP. TURNED PATIENT IMMEDIATELY IN SUPINE POSITION AND NOTICED HER SO2 GOES UP TO AROUND 90'S. LEVOPHED DRIP INCREASE TO 14 MCG/MIN THE PT WENT INTO HYPOTENSION.
--- NOTE | 2020-06-23 06:50 | NUR ---
DR. WORKMAN HERE AND INFORMED OR UPDATED HIM ON PATIENT'S LATEST CONDITION; HE SAID OKAY TO PUT HIM IN SUPINE POSITION.
[2020-06-23] MEDS: Z-GUARD PASTE TP SCH ×2 (07:00→12:29)
--- NOTE | 2020-06-23 07:15 | NUR ---
ENDORSED TO AM SHIFT RN CORNELL FOR CONTINUITY OF CARE.
[2020-06-23] MEDS: glipiZIDE 5 MG TAB PO SCH ×2 (07:30→16:30)
[2020-06-23] MEDS: BLOOD GLUCOSE MONITORING 1 DEV DEV FS SCH ×4 (07:30→21:00)
--- NOTE | 2020-06-23 08:01 | NUR ---
RECEIVED REPORT FROM STREET CAR MECHANIC NURSE. PATIENT SUPINE IN BED. RASS-3, FLACC 0, ETT TO VENT; AC/PC FIO2 100% PEEP 8 RATE 30 O2SAT 89%. WITH RASHARD PICC RUNNING VERSED 5MG, FENTANYL 1.5 MCG, LEVOPHED 14MCG. OGT INTACT AND PATENT RUNNING TUBE FEEDING. ISOLATION PRECAUTION OBSERVED. BRODY AND RECTAL TUBE INTACT. SAFETY MEASURES IN PLACE, CALL LIGHT WITHIN REACH. WILL CONTINUE TO MONITOR
[2020-06-23] MEDS: PANTOPRAZOLE 40 MG INJ VIAL IVP SCH (09:00)
[2020-06-23] MEDS: ASCORBIC ACID 500 MG/5 ML ORASYR GT SCH ×2 (09:00→21:22)
[2020-06-23] MEDS: methylPREDNISolone SS 40 MG/ML VIAL IVP SCH ×2 (09:00→21:22)
[2020-06-23] MEDS: INSULIN LANTUS 100 UNITS/ML 10 ML VIAL SUBQ SCH (09:00)
[2020-06-23] MEDS: CEFEPIME 500 MG in DEXTROSE 5% 50 ML IV SCH ×2 (09:00→21:25)
--- NOTE | 2020-06-23 10:00 | NUR ---
DUE MORNING MEDS GIVEN. ORAL CARE AND BRODY CARE DONE. REPOSITIONED PT
--- NOTE | 2020-06-23 10:30 | NUR ---
DR MAN AWARE OF EPISODES OF JOCELYNE, MORENO, AND RUNS OF VTACH Addendum: 06/24/20 at 2031 by Shaquille Monson RN CONNOR VANEGAS
--- NOTE | 2020-06-23 11:43 | NUR ---
(06/23/20) RD FOLLOW UP COMPLETED PLEASE REFER TO NUTRITION PROGRESS NOTE UNDER CARE ACTIVITY FOR ESTIMATED NUTRITION NEEDS. RD RECOMMENDATIONS: 1.CONTINUE NEPRO 1.8 @ 60 ML/HR X 8 HOURS WITH PROSOURCE TID DURING SUPINE POSITION. THIS WILL PROVIDE 1044 KCAL AND 83 GM OF PROTEIN WHICH MEETS 77% OF ESTIMATED KCAL NEEDS AND 100% OF ESTIMATED PROTEIN NEEDS. 2. RECOMMENDED FLUSH OF 350 ML Q12HR. 3. CONTINUE VITAMIN C SUPPLEMENTATION. 4. RD TO FOLLOW-UP 2-3 DAYS, HIGH RISK. SYBIL ESCALANTE, MS, RDN
[2020-06-23] MEDS: THERAHONEY GEL 42.5 GM TP SCH (15:07)
[2020-06-23] MEDS: NOREPINEPHRINE 16 MG in DEXTROSE 5% 250 ML IV PRN (18:00)
--- NOTE | 2020-06-23 18:00 | NUR ---
WITH EPISODE OF DESATURATION 70-80% RT MADE AWARE. REPOSITIONED PT. ETT SUCTIONING DONE
--- NOTE | 2020-06-23 19:20 | NUR ---
RECEIVED PATIENT ON BED ORALLY INTUBATED AND VENTILATED AT 100% FIO2; SEDATED RASS -3 ON CONTINOUS SEDATION OF FENTANYL AND VERSED DRIP. VIA PICC LINE ON RIGHT UPPER ARM. CARDIACSCOPE SHOWS ON SINUS RHYTHM TO SINUS TACHY WITH OCCASIONAL PVC'S IN BIGEMINY. ON CONTINOUS TUBE FEEDING NEPRO AT 10 ML/HR VIA OGT; TOLERATED. BRODY CATH IN SITU WITH VERY SCANTY CLOUDY URINE OUTPUT. WITH RECTAL TUBE TO GRAVITY DRAINAGE BAG DRAINING TO WATER DARK BROWN STOOL.; INTACT.
[2020-06-23] MEDS: INSULIN LISPRO SLIDING SCALE 100 UNITS/ML VIAL SUBQ PRN (21:30)
[2020-06-24] VITALS (30 sets, daily range): BP systolic 75–119; BP diastolic 37–64
[2020-06-24] MEDS: MIDAZOLAM MDV 100 MG in NACL 0.9% 80 ML IV PRN ×2 (00:21→21:14)
[2020-06-24] MEDS: Z-GUARD PASTE TP SCH ×2 (01:00→12:29)
--- NOTE | 2020-06-24 04:00 | NUR ---
MORNING BED BATH DONE; REPOSITIONED PATIENT INTO HER LEFT SIDE AND SHE STARTED AGAIN TO DESATURATE FIO2 TO 60'S. SO POSITIONED BACK THE PATIENT INTO SUPINE. CLOSE MONITORING AND OBSERVATION DONE.
--- NOTE | 2020-06-24 05:40 | NUR ---
LEVOPHED DRIP TITRATED UP BECAUSE BP IS GOING BELOW 90 SYSTOLIC PER PROTOCOL.
[2020-06-24 06:51] LABS: ANION GAP 17.9 (8-16); CARBON DIOXIDE 21.9 mmol/L (21-32); CREATININE 3.9 mg/dL (0.6-1.3)
[2020-06-24 07:05] LABS: POTASSIUM 2.8 mmol/L (3.5-5.1)
[2020-06-24] MEDS: BLOOD GLUCOSE MONITORING 1 DEV DEV FS SCH ×4 (07:30→21:18)
[2020-06-24] MEDS: glipiZIDE 5 MG TAB PO SCH ×2 (07:30→16:32)
--- NOTE | 2020-06-24 07:31 | NUR ---
RECEIVED REPORT FROM MOSHGIACH NURSE. PATIENT SUPINE IN BED. RASS-3, FLACC 0, ETT TO VENT; AC/PC FIO2 100% PEEP 8 RATE 30 O2SAT 60%. WITH RASHARD PICC RUNNING VERSED 5MG, FENTANYL 1.5 MCG, LEVOPHED 17MCG. OGT INTACT AND PATENT RUNNING TUBE FEEDING. ISOLATION PRECAUTION OBSERVED. BRODY AND RECTAL TUBE INTACT. SAFETY MEASURES IN PLACE, CALL LIGHT WITHIN REACH. WILL CONTINUE TO MONITOR
[2020-06-24] MEDS ORDERED: KCL 20 MEQ/WATER INJ PREMIX 200 ML IV SCH (08:15)
--- NOTE | 2020-06-24 08:15 | NUR ---
PERICARE DONE. NO BM NOTED. O2SAT 50-60%. PLACED ON PRONE POSITION
[2020-06-24] MEDS: ASCORBIC ACID 500 MG/5 ML ORASYR GT SCH ×2 (08:42→20:43)
[2020-06-24] MEDS: methylPREDNISolone SS 40 MG/ML VIAL IVP SCH ×2 (08:43→20:43)
[2020-06-24] MEDS: INSULIN LANTUS 100 UNITS/ML 10 ML VIAL SUBQ SCH (08:43)
[2020-06-24] MEDS: PANTOPRAZOLE 40 MG INJ VIAL IVP SCH (08:43)
[2020-06-24] MEDS: CEFEPIME 500 MG in DEXTROSE 5% 50 ML IV SCH ×2 (09:00→20:43)
--- NOTE | 2020-06-24 09:30 | NUR ---
SEEN BY DR VICTORIA. MADE AWARE OF PTS O2SAT 50-60%. NO NEW ORDERS
[2020-06-24] MEDS: fentaNYL citrate 2.5 MG in NACL 0.9% 200 ML IV PRN (11:02)
[2020-06-24] MEDS: NOREPINEPHRINE 16 MG in DEXTROSE 5% 250 ML IV PRN ×2 (11:39→21:18)
--- NOTE | 2020-06-24 11:56 | NUR ---
SISTER VANNESSA CALLED FOR PT CONDITION UPDATE, REPORTED HER OF CONDITION INCLUDING LOW O2SAT AND PRONE POSITION.
[2020-06-24] MEDS ORDERED: ALBUMIN HUMAN 25% 100 ML IV ONE ×2 (12:40)
[2020-06-24] MEDS ORDERED: ALBUMIN HUMAN 25% 200 ML IV ONE (12:43)
[2020-06-24] MEDS: THERAHONEY GEL 42.5 GM TP SCH (15:10)
--- NOTE | 2020-06-24 16:00 | NUR ---
SEEN BY DR VICTORIA. MADE AWARE OF PT'S O2SAT 50-60%. NO NEW ORDERS
[2020-06-24] MEDS: INSULIN LISPRO SLIDING SCALE 100 UNITS/ML VIAL SUBQ PRN ×2 (16:33→21:19)
--- NOTE | 2020-06-24 18:00 | NUR ---
PATIENT PRONE IN BED. RASS-3, FLACC 0, ETT TO VENT; AC/PC FIO2 100% PEEP 8 RATE 30 O2SAT 55%. WITH RASHARD PICC RUNNING VERSED 5MG, FENTANYL 1.5 MCG, LEVOPHED 30MCG.
--- NOTE | 2020-06-24 19:24 | NUR ---
PHONE CALL TO DR VICTORIA; MADE AWARE PTS BP 85/49; PT IS ON LEVOPHED,MAX [id number]/MIN; NEW ORDER RECEIVED.CARRIED OUT
--- NOTE | 2020-06-24 20:00 | NUR ---
RECEIVED PATIENT IN PRONE POSITION , ET TO VENT, SETTING AC/PC RATE OF 30 PEEP 8 , FIO2 100% , O2 SAT IS ONLY 60' MD AWARE PATIENT HAS LOW O2 SAT PER REPORT, OG TUBE FEEDING IS ON HOLD PER COVEILEEN JONESAL WITH PRONE POSITION. PATIEN IS ON VERSED , FENTANYL, LEVOPHED MAX DOSE AT THIS TIME. O2 SAT IS ONLY 60'S, ON ORTHOTIC FINISH GRINDING TECHNICIAN, WILL CONTINUE TO MINITOR.
[2020-06-24] MEDS ORDERED: PHENYLEPHRINE 10 MG/ML VIAL ONE (20:19)
--- NOTE | 2020-06-24 20:33 | NUR ---
UNABLE TO DO EKG AT THIS TIME. PT IS IN PRONE POSITION
[2020-06-24] MEDS: PHENYLEPHRINE 40 MG in NACL 0.9% 250 ML IV PRN (20:41)
--- NOTE | 2020-06-24 21:00 | NUR ---
START BESS DRIP FOR LOW BP PER MD ORDER.
[2020-06-25] VITALS (40 sets, daily range): BP systolic 79–141; BP diastolic 46–79
--- NOTE | 2020-06-25 | NUR ---
UNABLE TO REPOSITION PATIENT DUE TO LOW O2 SATURATION .
[2020-06-25] MEDS: Z-GUARD PASTE TP SCH ×2 (01:00→13:07)
--- NOTE | 2020-06-25 02:20 | NUR ---
URINE SPECIMEN FOR CULTURE COLLECTED AND SENT TO LAB.
--- NOTE | 2020-06-25 06:00 | NUR ---
O2 SAT BETWEEN 60'S AND 70'S , ENDORSED TO ONCOMING SHIFT NURSE.
[2020-06-25] MEDS ORDERED: PHENYLEPHRINE 10 MG/ML VIAL ONE (06:36)
[2020-06-25] MEDS: NOREPINEPHRINE 16 MG in DEXTROSE 5% 250 ML IV PRN ×2 (06:45→16:38)
[2020-06-25] MEDS: PHENYLEPHRINE 40 MG in NACL 0.9% 250 ML IV PRN ×2 (07:03→14:48)
[2020-06-25 07:05] LABS: ANION GAP 30.6 (8-16); CARBON DIOXIDE 13.2 mmol/L (21-32); CREATININE 3.1 mg/dL (0.6-1.3); POTASSIUM 3.8 mmol/L (3.5-5.1)
[2020-06-25] MEDS: BLOOD GLUCOSE MONITORING 1 DEV DEV FS SCH ×4 (07:06→21:00)
--- NOTE | 2020-06-25 07:20 | NUR ---
Report from the Night Nurse indicated that patient is on prone position. Her saturation is between 60% to 70% while [id number] & peep=8. patient's health condition did not improved. we will continue the care of this patient.
[2020-06-25] MEDS: glipiZIDE 5 MG TAB PO SCH ×2 (08:00→16:35)
[2020-06-25] MEDS: PANTOPRAZOLE 40 MG INJ VIAL IVP SCH (08:03)
[2020-06-25] MEDS: methylPREDNISolone SS 40 MG/ML VIAL IVP SCH ×2 (08:03→20:49)
[2020-06-25] MEDS: ASCORBIC ACID 500 MG/5 ML ORASYR GT SCH ×2 (08:03→20:48)
[2020-06-25] MEDS: INSULIN LANTUS 100 UNITS/ML 10 ML VIAL SUBQ SCH (08:06)
[2020-06-25] MEDS: CEFEPIME 500 MG in DEXTROSE 5% 50 ML IV SCH ×2 (08:45→20:49)
[2020-06-25] MEDS ORDERED: VANCOMYCIN 1,000 MG in NACL 0.9% 250 ML IV SCH (10:00)
[2020-06-25 14:06] LABS: MEAN CORPUSCULAR HEMOGLOBIN 33 pg (27-31); MEAN CORPUSCULAR HGB CONC 30 g/dL (33-37); MEAN CORPUSCULAR VOLUME 109.5 fL (80-94); PLATELET COUNT (AUTO) 57 K/uL (140-450); RED BLOOD CELL COUNT(AUTO) 1.83 MIL/uL (4.20-5.40); RED CELL DISTRIBUTION WIDTH 21.4 % (11.6-13.7); WHITE BLOOD COUNT (AUTO) 24.8 K/uL (4.8-10.8)
[2020-06-25 14:16] LABS: HEMOGLOBIN 5.9 g/dL (12.0-16.0)
[2020-06-25] MEDS: THERAHONEY GEL 42.5 GM TP SCH (14:49)
[2020-06-25 15:31] LABS: HEMATOCRIT 19.7 % (36-48); HEMOGLOBIN 5.9 g/dL (12.0-16.0)
[2020-06-25] MEDS: INSULIN LISPRO SLIDING SCALE 100 UNITS/ML VIAL SUBQ PRN (16:36)
--- NOTE | 2020-06-25 19:11 | NUR ---
Patient will be receiving 2 units PRBCS TRANSFUSION during the dialysis now. Dialysis Nurses has received one units and expecting a second unit as soon as possible the labs call.
[2020-06-25] MEDS ORDERED: VASOPRESSIN 20 UNITS in NACL 0.9% 250 ML IV SCH (19:20)
[2020-06-25] MEDS: MIDAZOLAM MDV 100 MG in NACL 0.9% 80 ML IV PRN (19:26)
[2020-06-25] MEDS ORDERED: VASOPRESSIN 20 UNITS/ML VIAL ONE (19:26)
--- NOTE | 2020-06-25 20:00 | NUR ---
SBP DROP TO 70'S , START VASOTEC DRIP AT 1940, ET TO VENT, PATIENT STILL IN PRONE POSITION WITH THE SAME SETTING :AC/PC RATE OF 30 PEEP 8 FIO2 100% , PATIENT IS ON VERSED 5 ML/HR, FENTANYL 1.5 MESSI/KG/HR, LEVOPHED MAX 30 MEQ/MIN BESS MAX 150MCQ/MIN, ALL IV INFUSING AT RASHARD , SITE IS CLEAN AND DRY, OG TUBE FEEDING IS ON HOLD DUE TO PRONE POSITION , HD NURSE AT BEDSIDE FOR HEMODIALYSIS , 2 UNITS PRBC IS GIVING BY HD NURSE, LEFT IJ ACCESS TO HEMODIALYSIS. WILL START BICARB DRIP ONCE IS READY FROM PHARMACY. WILL CONTINUE TO MONITOR.
--- NOTE | 2020-06-25 20:05 | NUR ---
RECEIVED INTUBATED PT WITH A 7.5 ETT SECURED @21 TEETH/GUM ON VENT. SETTINGS PC Pinsp 27 ,R30, PEEP 8 AND FIO2 100%. PT RECEIVING DIALYSIS AT THIS TIME. PT IN PRONE POSITION. SPO2 72% CRUISE AGENT AND NURSE AWARE OF PT STATUS. VENT ALARMS ON AND FUNCTIONING. WILL CONTINUE TO MONITOR.
[2020-06-25] MEDS: SODIUM BICARBONATE 8.4% 100 MEQ in DEXTROSE 5% 1,000 ML IV SCH (20:30)
[2020-06-25] MEDS ORDERED: SODIUM BICARBONATE 8.4% PFS 50 MEQ/50 ML SYR IVP ONE (20:50)
[2020-06-25 21:54] LABS: CORRECTED WHITE BLOOD COUNT 13.7 K/uL (4.5-11.0)
[2020-06-25 21:55] LABS: LYMPHOCYTES % (MANUAL) 3 % (20-46); MONOCYTES % (MANUAL) 1 % (5-12)
--- NOTE | 2020-06-25 22:24 | NUR ---
HD COMPLETED WITH 1000 ML OUT, SBP UP TO 140 , STOP VASOTEC DRIP, WILL CONTINUE THE CARE.
[2020-06-26] VITALS (42 sets, daily range): BP systolic 113–162; BP diastolic 47–109
[2020-06-26] MEDS: INSULIN LISPRO SLIDING SCALE 100 UNITS/ML VIAL SUBQ PRN ×5 (00:04→21:30)
[2020-06-26] MEDS: Z-GUARD PASTE TP SCH ×2 (01:00→12:24)
--- NOTE | 2020-06-26 02:00 | NUR ---
SBP 130'S WEAN OFF BESS , WILL CONTINUE TO MONITOR.
[2020-06-26] MEDS: NOREPINEPHRINE 16 MG in DEXTROSE 5% 250 ML IV PRN ×2 (02:47→13:03)
[2020-06-26 06:30] LABS: HEMATOCRIT 26.5 % (36-48); HEMOGLOBIN 8.3 g/dL (12.0-16.0); MEAN CORPUSCULAR HEMOGLOBIN 32 pg (27-31); MEAN CORPUSCULAR HGB CONC 31 g/dL (33-37); MEAN CORPUSCULAR VOLUME 101.4 fL (80-94); RED BLOOD CELL COUNT(AUTO) 2.61 MIL/uL (4.20-5.40); RED CELL DISTRIBUTION WIDTH 16.6 % (11.6-13.7); WHITE BLOOD COUNT (AUTO) 19.1 K/uL (4.8-10.8)
[2020-06-26] MEDS: BLOOD GLUCOSE MONITORING 1 DEV DEV FS SCH ×4 (06:36→21:00)
[2020-06-26 06:57] LABS: PLATELET COUNT (AUTO) 36 K/uL (140-450)
[2020-06-26 07:01] LABS: ALBUMIN 2.6 g/dL (3.4-5.0); ANION GAP 25.4 (8-16); CARBON DIOXIDE 14.5 mmol/L (21-32); CREATININE 2.3 mg/dL (0.6-1.3); POTASSIUM 3.9 mmol/L (3.5-5.1); TOTAL BILIRUBIN 2.1 mg/dL (0.0-1.0)
--- NOTE | 2020-06-26 07:20 | NUR ---
Report from the night indicated that the patient has completed the 2 units blood transfusion and hemodialysis output was 1 liter. Patient vent setting remained the same with non change in X107=384% and peep=8. Drips such as Vasopressor and Naresh-epinephrine were held due to the BP WNL but still running LEVOPHED AT 3O mcg/kg/min. Patient also in prone position. Labs still pending and we will continue to provide a quality of care for her.
[2020-06-26] MEDS: ASCORBIC ACID 500 MG/5 ML ORASYR GT SCH ×2 (08:20→20:53)
[2020-06-26] MEDS: glipiZIDE 5 MG TAB PO SCH ×2 (08:20→16:35)
[2020-06-26] MEDS: PANTOPRAZOLE 40 MG INJ VIAL IVP SCH (08:20)
[2020-06-26] MEDS: methylPREDNISolone SS 40 MG/ML VIAL IVP SCH ×2 (08:21→20:53)
[2020-06-26 08:24] LABS: CORRECTED WHITE BLOOD COUNT 15.9 K/uL (4.5-11.0); LYMPHOCYTES % (MANUAL) 4 % (20-46); MONOCYTES % (MANUAL) 2 % (5-12)
[2020-06-26] MEDS: INSULIN LANTUS 100 UNITS/ML 10 ML VIAL SUBQ SCH (08:36)
[2020-06-26] MEDS: CEFEPIME 500 MG in DEXTROSE 5% 50 ML IV SCH ×2 (08:58→20:54)
--- NOTE | 2020-06-26 15:02 | NUR ---
06/26/20 RD FOLLOW UP COMPLETED PLEASE REFER TO NUTRITION ASSESSMENT UNDER CARE ACTIVITY FOR ESTIMATED NUTRITIONAL NEEDS. 1. CURRENT RATE AT 10 ML/HR DURING PRONE POSITION WITH PROSOURCE TID DURING SUPINE POSITION 2. IF PATIENTS CONDITION DOES NOT CHANGE CONSIDER TPN FOR INCREASED NUTRITIONAL NEEDS. 3. IF/WHEN PATIENT IS ABLE TO RETURN TO SUPINE POSITION CONSULT RD FOR NEW TUBE FEEDING ORDERS WITH NEPRO 1.[address] TO FOLLOW-UP 2-3 DAYS, HIGH RISK SEBASTIÁN ZUNIGA, RD
[2020-06-26] MEDS: SODIUM BICARBONATE 8.4% 100 MEQ in DEXTROSE 5% 1,000 ML IV SCH (15:54)
[2020-06-26] MEDS: THERAHONEY GEL 42.5 GM TP SCH (15:54)
--- NOTE | 2020-06-26 16:30 | NUR ---
Respiratory Therapist and ASSIGNED Nurse checked the patient carotid pulse but was not perceptible. We suggested to initiate a code-licha immediately due the Ventilator which is showing a different parameter related to the RR. the experimeted nurse checked the inguinal pulse which is strongly perceptible. we cancelled the code-licha.
--- NOTE | 2020-06-26 19:20 | NUR ---
RECEIVED PATIENT ON BED, ORALLY INTUBATED AND VENTILATED AT 100% FIO2 ACPC MODE; SEDATED RASS-3 WITH VERSED AND FENTANYL DRIP VIA PICC LINE TO RIGHT UPPER ARM; INTACT. CARDIACSCOPE SHOWS ON SINUS KATHRYN HR 55/MIN.COMMENCING WITH IVF D5W 1LITER+ 100 MEQ NAHCO3 AT 75 ML/HR. WITH LEVOPHED DRIP AT 14 MCG/MIN FOR BP MAINTENANCE. Addendum: 06/26/20 at 2235 by Margarita Holley RN RECEIVED PATIENT AT 1920 INSTEAD OF 3H
[2020-06-27] VITALS (9 sets, daily range): BP systolic 94–121; BP diastolic 41–64
--- NOTE | 2020-06-27 | NUR ---
REPOSITIONED PATIENT'S HEAD FACING LEFT SIDE;SUCTIONED SECRETIONS
[2020-06-27] MEDS: Z-GUARD PASTE TP SCH (01:00)
--- NOTE | 2020-06-27 04:00 | NUR ---
MORNING CARE DONE.
[2020-06-27 06:41] LABS: EOSINOPHILS # (AUTO) 0.1 K/uL (0-0.4); EOSINOPHILS % (AUTO) 0.7 % (0.0-4.0); LYMPHOCYTES # (AUTO) 0.2 K/uL (2.5-16.5); MONOCYTES # (AUTO) 0.2 K/uL (0.8-1.0); RED BLOOD CELL COUNT(AUTO) 2.03 MIL/uL (4.20-5.40)
[2020-06-27 06:43] LABS: BASOPHILS # (AUTO) 0.2 K/uL (0.00-0.22); BASOPHILS % (AUTO) 2.3 % (0.0-2.0); HEMATOCRIT 20.6 % (36-48); LYMPHOCYTES % (AUTO) 2.6 % (20.5-51.1); MEAN CORPUSCULAR HEMOGLOBIN 32 pg (27-31); MEAN CORPUSCULAR HGB CONC 32 g/dL (33-37); MEAN CORPUSCULAR VOLUME 101.8 fL (80-94); MONOCYTES % (AUTO) 2.1 % (1.7-9.3); NEUTROPHILS # (AUTO) 7.7 K/uL (1.8-7.7); NEUTROPHILS % (AUTO) 92.3 % (42.2-75.2); RED CELL DISTRIBUTION WIDTH 17.1 % (11.6-13.7); WHITE BLOOD COUNT (AUTO) 8.3 K/uL (4.8-10.8)
[2020-06-27] MEDS: MIDAZOLAM MDV 100 MG in NACL 0.9% 80 ML IV PRN (06:50)
--- NOTE | 2020-06-27 07:20 | NUR ---
Night Nurse report indicated that there is no improvement and patient remains intubated and sedated with Versed 5 mg/h fentanyl 1.5 mcg/kg/h. She was on Levophed 25 mcg/kg/minute. No bowel movement and urine were noted. After the report , Day Nurse went into the room to check the patient. Patient was prone and vomiting from the system digestive was spread allover the sheets and pillow sheet. Day nurse check the temperature in different sites but was unable to obtain. in addition to lack of measuring the temperature, there was perceptible pulse from Carotid site as well as inguinal sites. Day nurse alerted the charge nurse and others nurses about the lack of these parameters. Patient was supine and code licha was activated. ER Doctors came and CPR was initiated. at 8:54 , the 1st Epinephrine was given, 8:57 , the 2nd dose, and then 3rd dose 9:00 and then patient was pronounced at 9:01 am.
--- NOTE | 2020-06-27 07:20 | NUR ---
ENDORSED TO AM SHIFT RN FOR CONTINUITY OF CARE.
[2020-06-27 07:35] LABS: MAGNESIUM 2.1 mg/dL (1.8-2.4)
[2020-06-27] MEDS: glipiZIDE 5 MG TAB PO SCH (07:55)
--- NOTE | 2020-06-27 09:19 | NUR ---
RECEIVED PT FROM CLINICAL EDITOR ON PRONE POSITION. PT CODED, CPR STARTED, ACLS DRUG GIVEN. KWAW AT BEDSIDE. CODE CALL OFF @ 9:00AM.
[2020-06-27 09:46] LABS: LACTATE DEHYDROGENASE 6497 U/L (81-234)
[2020-06-27] MEDS ORDERED: VANCOMYCIN 1,000 MG in DEXTROSE 5% 250 ML IV SCH (10:00)
[2020-06-27 10:39] LABS: HEMOGLOBIN 6.6 g/dL (12.0-16.0); PLATELET COUNT (AUTO) 10 K/uL (140-450)
== END 2020-06-27 09:01 | DRG 720 ==
LOC: EDBD 08:52 → MED 08:52 → MIC 17:51 → MMU 05-29 20:11 → MIC 05-30 17:43
PROC: XW033E5 Introduction of Remdesivir Anti-infective into Peripheral Vein, Percutaneous Approach, New Technology Group 5 (ICD-10-PCS; 2020-05-28)
PROC: 5A09457 Assistance with Respiratory Ventilation, 24-96 Consecutive Hours, Continuous Positive Airway Pressure (ICD-10-PCS; 2020-05-30)
PROC: 5A1955Z Respiratory Ventilation, Greater than 96 Consecutive Hours (ICD-10-PCS; principal; 2020-06-03)
PROC: 0BH17EZ Insertion of Endotracheal Airway into Trachea, Via Natural or Artificial Opening (ICD-10-PCS; 2020-06-03)
PROC: 02HV33Z Insertion of Infusion Device into Superior Vena Cava, Percutaneous Approach (ICD-10-PCS; 2020-06-06)
PROC: B548ZZA Ultrasonography of Superior Vena Cava, Guidance (ICD-10-PCS; 2020-06-06)
PROC: 5A1D70Z Performance of Urinary Filtration, Intermittent, Less than 6 Hours Per Day (ICD-10-PCS; 2020-06-06)
PROC: 5A1D70Z Performance of Urinary Filtration, Intermittent, Less than 6 Hours Per Day (ICD-10-PCS; 2020-06-08)
PROC: 5A1D70Z Performance of Urinary Filtration, Intermittent, Less than 6 Hours Per Day (ICD-10-PCS; 2020-06-09)
PROC: 5A1D70Z Performance of Urinary Filtration, Intermittent, Less than 6 Hours Per Day (ICD-10-PCS; 2020-06-10)
PROC: 5A1D70Z Performance of Urinary Filtration, Intermittent, Less than 6 Hours Per Day (ICD-10-PCS; 2020-06-11)
PROC: 5A1D70Z Performance of Urinary Filtration, Intermittent, Less than 6 Hours Per Day (ICD-10-PCS; 2020-06-12)
PROC: 5A1D70Z Performance of Urinary Filtration, Intermittent, Less than 6 Hours Per Day (ICD-10-PCS; 2020-06-13)
PROC: 02HV33Z Insertion of Infusion Device into Superior Vena Cava, Percutaneous Approach (ICD-10-PCS; 2020-06-14)
PROC: 5A1D70Z Performance of Urinary Filtration, Intermittent, Less than 6 Hours Per Day (ICD-10-PCS; 2020-06-15)
PROC: 5A1D70Z Performance of Urinary Filtration, Intermittent, Less than 6 Hours Per Day (ICD-10-PCS; 2020-06-18)
PROC: 5A1D70Z Performance of Urinary Filtration, Intermittent, Less than 6 Hours Per Day (ICD-10-PCS; 2020-06-19)
PROC: 30233K1 Transfusion of Nonautologous Frozen Plasma into Peripheral Vein, Percutaneous Approach (ICD-10-PCS; 2020-06-20)
PROC: 5A1D70Z Performance of Urinary Filtration, Intermittent, Less than 6 Hours Per Day (ICD-10-PCS; 2020-06-20)
PROC: 5A1D70Z Performance of Urinary Filtration, Intermittent, Less than 6 Hours Per Day (ICD-10-PCS; 2020-06-23)
PROC: 30233N1 Transfusion of Nonautologous Red Blood Cells into Peripheral Vein, Percutaneous Approach (ICD-10-PCS; 2020-06-25)
DX: A41.01 Sepsis due to Methicillin susceptible Staphylococcus aureus (principal); U07.1 COVID-19; E11.10 Type 2 diabetes mellitus with ketoacidosis without coma; J12.89 Other viral pneumonia; I46.9 Cardiac arrest, cause unspecified; E86.0 Dehydration; N17.0 Acute kidney failure with tubular necrosis; E43 Unspecified severe protein-calorie malnutrition; E83.39 Other disorders of phosphorus metabolism; E83.42 Hypomagnesemia; R34 Anuria and oliguria; R65.21 Severe sepsis with septic shock; Z91.19 Patient's noncompliance with other medical treatment and regimen; E87.0 Hyperosmolality and hypernatremia; G93.40 Encephalopathy, unspecified; J96.01 Acute respiratory failure with hypoxia; N39.0 Urinary tract infection, site not specified; Y95 Nosocomial condition; Z90.49 Acquired absence of other specified parts of digestive tract; Z91.14 Patient's other noncompliance with medication regimen; E87.6 Hypokalemia; I49.9 Cardiac arrhythmia, unspecified; B37.3 Candidiasis of vulva and vagina; Z68.23 Body mass index [BMI] 23.0-23.9, adult; D63.8 Anemia in other chronic diseases classified elsewhere
CPT/HCPCS: 36415; 36600; 71045; 71275; 80048; 80053; 80202; 80305; 81001; 82150; 82436; 82550; 82553; 82570; 82607; 82728; 82746; 82803; 82948; 83036; 83540; 83605; 83615; 83690; 83735; 83880; 84100; 84300; 84436; 84443; 84479; 84484; 85018; 85025; 85045; 85379; 85610; 85651; 85730; 86140; 86704; 86706; 86708; 86709; 86803; 86886; 86900; 86901; 86920; 87040; 87070; 87081; 87086; 87186; 87205; 87340; 87804; 89220; 90935; 93005; 94002; 94003; 94660; 96361; 96374; 96375; 99291; C9113; J0692; J0696; J1450; J1644; J1650; J1815; J1885; J1956; J2001; J2060; J2250; J2270; J2370; J2405; J2543; J2704; J2916; J2920; J2997; J3010; J3370; J3475; J3480; J3490; J7030; J7060; P9016; P9017; P9046; Q9967; U0003